=== PATIENT | female | born 1985 | race Caucasian/White ===

== ENCOUNTER → 2016-11-18 | Outpatient (CLI) | payer OTHER ==
[~2016-11-18] MED LIST: AMIT50TA3 PO; ASPI81CH2 PO; CALC500C70 PO; DOXY25TA7 PO; DULO60CA44 PO; KRIL1000 PO; LORA10CA2 PO; MTR600X PO; OMEG10007 PO; PRENTAB26 PO; PRLSR20 PO; PYRI1TAB40 PO; SENNTAB23 PO; VALA500T39 PO; ZNTT/150 PO
[2016-11-18 13:18] LABS: BASO % 0.1 %; BASO ABS # 0.01 K/uL (0-0.2); COMPLETE YES; EOS % 0.4 %; HEMATOCRIT 36.3 % (37-47); IG% 0.2 %; LYMPH ABS # 1.63 K/uL (1.2-3.4); MEAN CELL VOLUME 86.8 fL (80-100); MEAN CORPUSCULAR HEMOGLOBIN 31.1 pg (25-34); MEAN CORPUSCULAR HGB CONC 35.8 g/dl (32-36); MEAN PLATELET VOLUME 10.2 fL (7.4-10.4); NEUT % 72.3 %; PLATELET COUNT 242 K/uL (130-400); RED BLOOD COUNT 4.18 M/uL (4.2-5.4); WHITE BLOOD COUNT 8.15 K/uL (4.8-10.8)
[2016-11-18 14:15] LABS: URINE APPEARANCE CLEAR (CLEAR); URINE BILIRUBIN NEG (NEG); URINE COLOR YELLOW; URINE NITRITE NEG (NEG); UROBILINOGEN NEG (NEG)
[2016-11-18 14:34] LABS: MANUAL MICROSCOPIC REQUIRED? NO; REVIEW REQ? NO
[2016-11-21 14:03] LABS: CHLAMYDIA TRACH RNA*** NOT DETECTED (NOT DETECTED); GC (NEIS GONORRHOEAE)RNA** NOT DETECTED (NOT DETECTED)
== END | disposition home or self-care (01) ==
LOC: C.LAB1850 12:08
PROVIDERS: ATTEND Obstetrics & Gynecology
DX: O09.811 Supervision of pregnancy resulting from assisted reproductive technology, first trimester (principal)

== ENCOUNTER → 2016-12-03 | Outpatient (CLI) | payer OTHER ==
[2016-12-03 14:42] LABS: URINE APPEARANCE CLEAR (CLEAR); URINE BILIRUBIN NEG (NEG); URINE COLOR YELLOW; URINE EPITHELIAL CELL AUTO 20-30 /lpf (0-5); URINE NITRITE NEG (NEG); URINE PH 7.5 (4.5-7.5); URINE SPECIFIC GRAVITY 1.013 (1.000-1.030); UROBILINOGEN NEG (NEG)
[2016-12-03 14:48] LABS: MANUAL MICROSCOPIC REQUIRED? NO; REVIEW REQ? NO
== END | disposition home or self-care (01) ==
LOC: C.LABSPEC 14:15
PROVIDERS: ATTEND Obstetrics & Gynecology
DX: O09.819 Supervision of pregnancy resulting from assisted reproductive technology, unspecified trimester (principal)

== ENCOUNTER → 2017-01-04 | Outpatient (CLI) | payer OTHER ==
[2017-01-04 14:20] LABS: GTGD 50 Grams
[2017-01-06 09:02] LABS: AFP CONCENTRATION 131.5 NG/ML; AFP MULTIPLE OF MEDIAN 3.64; AFPTS GESTATIONAL AGE 16.7 WEEKS; AFPTS INSULIN DEP DIABETIC? NO; AFPTS MATERNAL WT 148 LBS; ALPHA-FETOPROTEIN RACE CAUCASIAN=W; EDD DETERMINED BY ULTRASOUND; HISTORY OF NTD NO; INHIBIN A 420 PG/ML; REPEAT SAMPLE? NO; hCG MULTIPLE OF MEDIAN 4.75
== END | disposition home or self-care (01) ==
LOC: C.LAB1850 11:54
PROVIDERS: ATTEND Obstetrics & Gynecology
DX: O09.811 Supervision of pregnancy resulting from assisted reproductive technology, first trimester (principal); O30.031 Twin pregnancy, monochorionic/diamniotic, first trimester

== ENCOUNTER 2017-01-18 17:07 | Emergency (ER) | payer OTHER ==
[~2017-01-18] VITALS: Ht 172.7 cm; Wt 68.5 kg
[~2017-01-18 17:07] MED LIST changes: -ASPI81CH2 PO; -CALC500C70 PO; -DOXY25TA7 PO; -PRENTAB26 PO; -PYRI1TAB40 PO; -ZNTT/150 PO
[2017-01-18 17:10] VITALS: TEMP 36.8; Ht 172.7 cm; Wt 68.5 kg
--- NOTE | 2017-01-18 19:06 | DIAGNOSTIC IMAGING REPORT ---
ULTRASOUND LIMITED CLINICAL HISTORY: Twin gestation. COMPARISON STUDY: No priors. FINDINGS: Real-time, grayscale, and color Doppler sonography of the two fetuses and gravid uterus is performed. There are two live intrauterine gestations. Baby A is located on the left and baby B is located on the right. Both fetuses are in cephalic presentation. The gestation appears to be monochorionic diamniotic. Both placentas appear posterior and fundal. Baby A has an estimated heart rate of 137 bpm. Baby A has a biparietal diameter of 4.27 cm, corresponding to an estimated age of 18 weeks 6 days. Head circumference measures 15.58 cm, corresponding to an estimated age of 18 weeks 4 days, abdominal circumference measures 13.9 cm corresponding to an estimated age of 18 weeks 5 days, and femoral length measures 2.6 cm corresponding to an estimated age of 18 weeks 5 days. Overall estimated age is 8 weeks 4 days. Estimated weight is 257 g. Baby B has an estimated heart rate of 145 bpm. Baby B has a biparietal diameter of 3.3 cm corresponding to an estimated age of 17 weeks 5 days. Head circumference measures 13.82 cm corresponding to an estimated age 17 weeks 2 days, the abdominal circumference measures 10.30 cm corresponding to an estimated age of 16 weeks 2 days, and the femoral length measures 2.16 cm corresponding to an estimated age of 16 weeks 3 days. Overall estimated age is 17 weeks 0 days. Estimated weight is 159 g. Hydrocephalus is identified involving baby B. The amniotic fluid volume is grossly normal bilaterally. The cervix appears closed and cervical length measures 5.8 cm. IMPRESSION: 1. There are live twin gestations as detailed above. Both gestations are in cephalic presentation. 2. The gestations are likely monochorionic diamnionic. 3. Survey imaging of baby B shows significant hydrocephalus. Follow-up with the patient's foot and ankle surgeon is recommended. Note that this does not constitute a dedicated anatomic scan. 4. The estimated weight of baby A is significantly greater than baby B. See above. Findings were discussed with Dr. Marti in the emergency department at the time of interpretation. Dictated: 01/18/2017 6:37 PM Transcribed: 01/18/2017 7:06 PM Giana Electronically signed by: Alfredo Peacock M.D. 01/18/2017 7:08 PM Dictated Date/Time: 01/18/2017 6:37 PM
[2017-01-18] MEDS ORDERED: PRENTAB26 PO (19:12)
[2017-01-18] MEDS ORDERED: PYRI1TAB40 PO (19:12)
[2017-01-18] MEDS ORDERED: DOXY25TA7 PO (19:12)
[2017-01-18 20:25] VITALS: BP 124/80; PULSE 90; O2SAT 100
--- NOTE | 2017-01-18 23:52 | EMERGENCY ROOM VISIT NOTE ---
History Report prepared by Lata: Jovana Perez Under the Supervision of: Dr. Elisha Marti D.O. 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 She started hyperventilating and presented to the ED. She is with twins. Two weeks ago, she learned that one twin was smaller than the other and had an appointment scheduled with OB tomorrow. This has been stressful for her, but she has been able to function. Today, she received a call and learned that her appointment was cancelled. She then started to feel anxious and started hyperventilating. She has a history of anxiety and was on medications, but stopped when she got . She has never experienced anxiety like this before. She feels dizzy. She denies any abdominal pain. 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 A total of 10 systems reviewed and were otherwise negative. Past Medical & Surgical Medical Problems: (1) Ovarian cyst Family History Patient reports no known family medical history. Social History Smoking Status: Never Smoker Alcohol Use: none Drug Use: none Marital Status: Housing Status: lives with family Occupation Status: employed Current/Historical Medications Scheduled Doxylamine Succinate (Sleep) (Unisom), 25 MG PO HS Fish Oil (Carroll-3), 1 CAP PO HS Krill Oil (Krill Oil), 1 CAP PO QAM Multivit/Min/Iron/Fol Ac/Pren ( Vitamin), 1 TAB PO QAM Pyridoxine HCl (Vitamin B6), 25 MG PO BID Valacyclovir Hcl (Valtrex), 500 MG PO HS Allergies Coded Allergies: No Known Allergies (Unverified , 01/18/17) Physical Exam Vital Signs Date Time Temp Pulse Resp B/P Pulse Ox O2 Delivery O2 Flow Rate FiO2 01/18/17 20:25 90 16 124/80 100 Room Air 01/18/17 18:45 83 16 125/72 100 Room Air 01/18/17 17:10 36.8 85 40 143/70 100 Room Air Physical Exam General: She is tearful and hyperventilating. HEENT: Head - normocephalic and atraumatic Pupils are equal, round, and reactive to light. Extraocular eye muscles are intact, and sclera are anicteric. Nose - moist nasal mucosa without discharge. Mouth - moist buccal mucosa. Oropharynx is nonerythematous and there is no tonsillar exudate or edema noted. Neck: Supple; no JVD, nuchal rigidity, cervical lymphadenopathy. Heart: Tachycardic rate and regular rhythm. There is a normal S1 and S2 with no murmurs, clicks, or gallops appreciated. Lungs: Clear to auscultation bilaterally with no wheezes, rales, or rhonchi. Abdomen: Gravid. Soft, completely nontender with good bowel sounds. There are no palpable pulsatile masses or hepatosplenomegaly. There is no guarding, rigidity, or rebound noted. Extremities: No evidence of cyanosis, clubbing, or edema. There are easily palpable peripheral pulses. Skin: warm and dry with good turgor and no rashes. Medical Decision & Procedures ER Provider Diagnostic Interpretation: Radiology results as stated below per my review and the radiologist's interpretation: ULTRASOUND LIMITED CLINICAL HISTORY: Twin gestation. COMPARISON STUDY: No priors. FINDINGS: Real-time, grayscale, and color Doppler sonography of the two fetuses and gravid uterus is performed. There are two live intrauterine gestations. Baby A is located on the left and baby B is located on the right. Both fetuses are in cephalic presentation. The gestation appears to be monochorionic diamniotic. Both placentas appear posterior and fundal. Baby A has an estimated heart rate of 137 bpm. Baby A has a biparietal diameter of 4.27 cm, corresponding to an estimated age of 18 weeks 6 days. Head circumference measures 15.58 cm, corresponding to an estimated age of 18 weeks 4 days, abdominal circumference measures 13.9 cm corresponding to an estimated age of 18 weeks 5 days, and femoral length measures 2.6 cm corresponding to an estimated age of 18 weeks 5 days. Overall estimated age is 18 weeks 4 days. Estimated weight is 257 g. Baby B has an estimated heart rate of 145 bpm. Baby B has a biparietal diameter of 3.3 cm corresponding to an estimated age of 17 weeks 5 days. Head circumference measures 13.82 cm corresponding to an estimated age 17 weeks 2 days, the abdominal circumference measures 10.30 cm corresponding to an estimated age of 16 weeks 2 days, and the femoral length measures 2.16 cm corresponding to an estimated age of 16 weeks 3 days. Overall estimated age is 17 weeks 0 days. Estimated weight is 159 g. Hydrocephalus is identified involving baby B. The amniotic fluid volume is grossly normal bilaterally. The cervix appears closed and cervical length measures 5.8 cm. IMPRESSION: 1. There are live twin gestations as detailed above. Both gestations are in cephalic presentation. 2. The gestations are likely monochorionic diamnionic. 3. Survey imaging of baby B shows significant hydrocephalus. Follow-up with the patient's accounting software specialist is recommended. Note that this does not constitute a dedicated anatomic scan. 4. The estimated weight of baby A is significantly greater than baby B. See above. Findings were discussed with Dr. Marti in the emergency department at the time of interpretation. Electronically signed by: Alfredo Peacock M.D. 01/18/2017 7:08 PM Dictated Date/Time: 01/18/2017 6:37 PM ULTRASOUND LIMITED CLINICAL HISTORY: Twin gestation. COMPARISON STUDY: No priors. FINDINGS: Real-time, grayscale, and color Doppler sonography of the two fetuses and gravid uterus is performed. There are two live intrauterine gestations. Baby A is located on the left and baby B is located on the right. Both fetuses are in cephalic presentation. The gestation appears to be monochorionic diamniotic. Both placentas appear posterior and fundal. Baby A has an estimated heart rate of 137 bpm. Baby A has a biparietal diameter of 4.27 cm, corresponding to an estimated age of 18 weeks 6 days. Head circumference measures 15.58 cm, corresponding to an estimated age of 18 weeks 4 days, abdominal circumference measures 13.9 cm corresponding to an estimated age of 18 weeks 5 days, and femoral length measures 2.6 cm corresponding to an estimated age of 18 weeks 5 days. Overall estimated age is 8 weeks 4 days. Estimated weight is 257 g. Baby B has an estimated heart rate of 145 bpm. Baby B has a biparietal diameter of 3.3 cm corresponding to an estimated age of 17 weeks 5 days. Head circumference measures 13.82 cm corresponding to an estimated age 17 weeks 2 days, the abdominal circumference measures 10.30 cm corresponding to an estimated age of 16 weeks 2 days, and the femoral length measures 2.16 cm corresponding to an estimated age of 16 weeks 3 days. Overall estimated age is 17 weeks 0 days. Estimated weight is 159 g. Hydrocephalus is identified involving baby B. The amniotic fluid volume is grossly normal bilaterally. The cervix appears closed and cervical length measures 5.8 cm. IMPRESSION: 1. There are live twin gestations as detailed above. Both gestations are in cephalic presentation. 2. The gestations are likely monochorionic diamnionic. 3. Survey imaging of baby B shows significant hydrocephalus. Follow-up with the patient's accounting software specialist is recommended. Note that this does not constitute a dedicated anatomic scan. 4. The estimated weight of baby A is significantly greater than baby B. See above. Findings were discussed with Dr. Marti in the emergency department at the time of interpretation. Electronically signed by: Alfredo Peacock M.D. 01/18/2017 7:08 PM Dictated Date/Time: 01/18/2017 6:37 PM ED Course 1719: The patient was evaluated in room B9. A complete history and physical examination were performed. Nursing notes and previous electronic medical records were reviewed. The patient was able to relax. The patient went for an ultrasound. 1849: I discussed the US results with Dr. Peacock. The B twin has evidence of hydrocephalus and is smaller than the A twin. 1921: I reevaluated the patient. I discussed the results with her. 1953: I discussed the patient's case with Dr. Olvera, [facility], maternal- medicine. The patient will follow up with him as an outpatient. 2007: I discussed the patient's case with Dr. Meneses, [facility] [place] [facility]. The patient will follow up with her as an outpatient. 2009: I reevaluated the patient. I discussed the treatment plan with her. She verbalized understanding and agreement. She will be discharged home. Medical Decision The patient is a 31 year old female who presents to the ED with anxiety. Differential diagnosis includes anxiety attack, hyperventilation. This is a 31-year-old female patient who is with twins and suffered a panic attack tonight. The patient is in her second trimester with this twin gestation. Unfortunately, the B twin is smaller in size compared to the other twin and has evidence of hydrocephalus. The patient will follow-up tomorrow after 12:00 with the [place] [facility] Consults Time Called: 1844 Consulting Physician: Dr. Peacock, [facility] radiology Returned Call: 1849 I discussed the patient's case and US results with him. The B twin has severe hydrocephalus. Additional Consults: Time Called: 1939 Consulted Physician: Dr. Olvera, [facility] [facility] Returned Call: 1953 Additional Comments: I discussed the patient's case with him. The patient will follow up with him as an outpatient. Time Called: 2001 Consulted Physician: Dr. Meneses, [facility] [place] [facility] Returned Call: 2007 Additional Comments: I discussed the patient's case with her. The patient will follow up with him as an outpatient. Impression Primary Impression: Anxiety attack Additional Impression: Twin gestation in second trimester Scribe Attestation The scribe's documentation has been prepared under my direction and personally reviewed by me in its entirety. I confirm that the note above accurately reflects all work, treatment, procedures, and medical decision making performed by me. Departure Information Dispostion Home / Self-Care Referrals No Doctor, Assigned (PCP) Silvio Sexton MD Forms HOME CARE DOCUMENTATION FORM, IMPORTANT VISIT INFORMATION Patient Instructions My [facility] Additional Instructions Contact Dr. Addison's office tomorrow after noon for an appointment by the end of the week Follow up with local OB next week Problem Qualifiers
== END 2017-01-18 20:27 | disposition home or self-care (01) ==
LOC: C.EDB 17:09
DX: O99.342 Other mental disorders complicating pregnancy, second trimester (principal); F41.9 Anxiety disorder, unspecified; O30.002 Twin pregnancy, unspecified number of placenta and unspecified number of amniotic sacs, second trimester; Z3A.17 17 weeks gestation of pregnancy

== ENCOUNTER 2017-02-18 15:37 | Outpatient (CLI) | payer OTHER ==
[~2017-02-18] VITALS: Ht 170.2 cm; Wt 67.1 kg
[~2017-02-18 15:37] MED LIST changes: -AMIT50TA3 PO; +DOXY25TA7 PO; -DULO60CA44 PO; -LORA10CA2 PO; -MTR600X PO; +PRENTAB26 PO; -PRLSR20 PO; +PYRI1TAB40 PO; -SENNTAB23 PO
[2017-02-18] MEDS ORDERED: BETAMETH SOD PHOS/ACETATE IA 6 MG/ML ONE (15:46)
[2017-02-18 15:58] VITALS: Ht 170.2 cm; Wt 67.1 kg
[2017-02-18] MEDS ORDERED: BETAMETH SOD PHOS/ACETATE IA 6 MG/ML IM SCH (16:00)
[2017-02-18] MEDS ORDERED: PRENTAB26 PO (16:11)
[2017-02-18] MEDS ORDERED: ZNTT/150 PO (16:11)
[2017-02-18] MEDS ORDERED: CALC500C70 PO (16:11)
[2017-02-18] MEDS ORDERED: ASPI81CH2 PO (16:11)
== END 2017-02-18 15:55 | disposition home or self-care (01) ==
LOC: C.LD 15:37 → C.OPB 15:37
PROVIDERS: ATTEND Obstetrics & Gynecology
DX: O30.032 Twin pregnancy, monochorionic/diamniotic, second trimester (principal); Z3A.23 23 weeks gestation of pregnancy

== ENCOUNTER 2017-12-11 15:28 | Emergency (ER) | payer OTHER ==
[~2017-12-11] VITALS: Ht 172.7 cm; Wt 59.0 kg
[~2017-12-11 15:28] MED LIST changes: +ASPI81CH2 PO; +CALC500C70 PO; -DOXY25TA7 PO; -KRIL1000 PO; -OMEG10007 PO; -PYRI1TAB40 PO; -VALA500T39 PO; +ZNTT/150 PO
[2017-12-11 16:02] VITALS: TEMP 37.4; Ht 172.7 cm; Wt 59.0 kg
[2017-12-11] MEDS ORDERED: ACETAMINOPHEN 500 MG TAB PO STA (16:22)
[2017-12-11] MEDS ORDERED: ONDANSETRON 4MG OD TAB PO STA (16:22)
[2017-12-11 16:43] LABS: INFLUENZA B ANTIGEN Neg for Influ B (NEG)
[2017-12-11] MEDS ORDERED: VALA500T60 PO (16:43)
[2017-12-11] MEDS ORDERED: LAMO25TA PO (16:43)
[2017-12-11] MEDS ORDERED: SERT-234 PO (16:43)
[2017-12-11] MEDS ORDERED: MULT-506 PO (16:43)
--- NOTE | 2017-12-11 16:46 | DIAGNOSTIC IMAGING REPORT ---
CHEST ONE VIEW PORTABLE CLINICAL HISTORY: 31 years-old Female presenting with cough, fever. TECHNIQUE: Portable upright AP view of the chest was obtained. COMPARISON: None. FINDINGS: Cardiomediastinal silhouette normal. Multiple hyperdense foci in the lung bases may represent prominent vascular shadows. Lungs and pleural spaces clear. Osseous structures normal. Upper abdomen normal. IMPRESSION: 1. No acute cardiopulmonary disease. Electronically signed by: Bacilio Chapa M.D. 12/11/2017 4:45 PM Dictated Date/Time: 12/11/2017 4:44 PM
[2017-12-11] MEDS ORDERED: ALBUTEROL HFA 8 GM INHALER INH ONE (17:00)
[2017-12-11] MEDS ORDERED: ONDANSETRON HOME PACK 4MG OD TAB PO ONE (17:00)
[2017-12-11 17:22] VITALS: BP 109/67; PULSE 80; O2SAT 96
--- NOTE | 2017-12-11 19:40 | EMERGENCY ROOM VISIT NOTE ---
History Report prepared by Lata: Paige Calderon Under the Supervision of: Dr. Chandan Ocampo M.D. First contact with patient: 16:08 Chief Complaint: FLU LIKE SX Stated Complaint: FLU LIKE SYMPTOMS,CHILLS,BODY ACHES,COUGH,NAUSEA History of Present Illness The patient is a 31 year old female who presents to the Emergency Room with complaints of constant generalized illness beginning yesterday. The patient reports body aches, lightheadedness, fatigue, fever, scratchy throat, headache, chills, a barky cough, chest tightness, and nausea. The patient took ibuprofen with no relief. 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 She states she has a 12 hour shift tomorrow. The patient had a flu shot this year. She denies any joint pain or swelling. Pt denies LOC, diaphoresis, visual changes, neck pain, breathing difficulties, vomiting, abdominal pain, back pain , melena, hematochezia, urinary symptoms, numbness, weakness, lymphadenopathy, rash, or other complaints. Source of History: patient Onset: yesterday Position: other (generalized) Quality: other (illness) Timing: constant Associated Symptoms: + fevers, + chills, + headache, + sorethroat, + cough, + nausea Review of Systems See HPI for pertinent positives and negatives. A total of ten systems were reviewed and were otherwise negative. Past Medical & Surgical Medical Problems: (1) Monochorionic diamniotic twin gestation in second trimester (2) Monochorionic diamniotic twin in third trimester (3) Ovarian cyst Family History Patient reports no known family medical history. Social History Smoking Status: Never Smoker Alcohol Use: none Drug Use: none Marital Status: Housing Status: lives with family Occupation Status: employed Current/Historical Medications Scheduled Lamotrigine (Lamictal), 50 MG PO HS Multivitamin (Multivitamin), 1 TAB PO HS Ranitidine (Zantac), 1 TAB PO BID Sertraline (Zoloft), 100 MG PO HS Valacyclovir (Valtrex), 500 MG PO HS Allergies Coded Allergies: Promethazine (Verified Allergy, Severe, TONIC REACTION, 12/11/17) IF GIVEN IV. Physical Exam Vital Signs Date Time Temp Pulse Resp B/P (MAP) Pulse Ox O2 Delivery O2 Flow Rate FiO2 12/11/17 17:22 80 18 109/67 96 12/11/17 16:02 37.4 127 20 122/79 96 Room Air Physical Exam GENERAL: Awake, alert, well-appearing, in no distress HENT: Normocephalic, atraumatic. Oropharynx unremarkable. EYES: Normal conjunctiva. Sclera non-icteric. NECK: Supple. No nuchal rigidity. FROM. No JVD. RESPIRATORY: Clear to auscultation. CARDIAC: Regular rate, normal rhythm. Extremities warm and well perfused. Pulses equal. ABDOMEN: Soft, non-distended. No tenderness to palpation. No rebound or guarding. No masses. RECTAL: Deferred. MUSCULOSKELETAL: Chest examination reveals no tenderness. The back is symmetrical on inspection without obvious abnormality. There is no CVA tenderness to palpation. No joint edema. LOWER EXTREMITIES: Calves are equal size bilaterally and non-tender. No edema. No discoloration. NEURO: Normal sensorium. No sensory or motor deficits noted. SKIN: No rash or jaundice noted. Medical Decision & Procedures ER Provider Diagnostic Interpretation: Radiology results as stated below per my review and radiologist interpretation: CHEST ONE VIEW PORTABLE FINDINGS: Cardiomediastinal silhouette normal. Multiple hyperdense foci in the lung bases may represent prominent vascular shadows. Lungs and pleural spaces clear. Osseous structures normal. Upper abdomen normal. IMPRESSION: 1. No acute cardiopulmonary disease. Electronically signed by: Bacilio Chapa M.D. Laboratory Results Test 12/11/17 16:15 Influenza Type A Antigen Neg for Influ A (NEG) Influenza Type B Antigen Neg for Influ B (NEG) Laboratory results reviewed by me Medications Administered Medications (Trade) Dose Ordered Sig/Thea Route Start Time Stop Time Status Last Admin Dose Admin Acetaminophen (Tylenol Tab) 1,000 mg NOW STAT PO 12/11/17 16:22 12/11/17 16:24 DC 12/11/17 16:44 1,000 MG Ondansetron HCl (Zofran Odt) 4 mg NOW STAT PO 12/11/17 16:22 12/11/17 16:24 DC 12/11/17 16:43 4 MG Ondansetron HCl (ZOFRAN ODT 4MG Home Pack) 1 homepack UD ONCE PO 12/11/17 17:00 12/11/17 17:01 DC 12/11/17 17:16 1 HOMEPACK Albuterol (Ventolin Hfa Inhaler) 2 puffs NOW ONCE INH 12/11/17 17:00 12/11/17 17:01 DC 12/11/17 17:16 2 PUFFS ECG Indication: chest pain Rate (beats per minute): 83 Rhythm: normal sinus Findings: no acute ischemic change, no ectopy, other (no pericarditis) Change: EKG interpreted by me. ED Course 161: The patient was evaluated in room A3. A complete history and physical exam was performed. 162: Ordered Zofran Odt 4 mg PO, Acetaminophen 1000 mg PO. 1654: I updated the patient on her test results. 1700: Ordered Albuterol 2 puffs INH, Ondansetron HCl 1 homepack PO. 1706: I reevaluated the patient. Discussed results and discharge instructions: She verbalized understanding and agreement. The patient is ready for discharge. Medical Decision Triage Nursing notes reviewed and agree them. The patient's history was concerning for flulike symptoms. Differential diagnosis: Etiologies such as viral syndrome, otitis, pharyngitis, pneumonia, influenza, meningitis, urinary tract infection, sepsis, bacteremia, as well as others were entertained. Physical examination: As above. Clinically the patient looked well. ER treatment provided: Oral Zofran Oral Tylenol On reassessment the patient felt better. Diagnostics interpreted by me: ECG: Normal without ischemia or ectopy. No pericarditis. The labs revealed a negative flu test. Imaging studies: As above. The patient has flu symptoms but they are mild. She had some mild nausea and this resulted Zofran. I discussed conservative management with her. 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 The patient feels comfortable holding off given the circumstances. The patient has a history of exercised induced asthma. She does not have a fresh inhaler. She was given an albuterol MDI and will use this for the next 5 days and then as needed. If she worsens in any way she will be back. Close outpatient follow- up was recommended.I gave my usual and customary discussion regarding this issue. By the evaluation outlined above other emergent etiologies such as those listed in the differential, as well as others, were deemed relatively unlikely. The patient was educated about the findings as listed above. All questions were answered and the patient was pleased with the treatment. Return instructions were outlined and the patient was discharged in stable condition. The patient was referred to her PCP for follow-up for a recheck of the current condition. Medication Reconcilliation Current Medication List: was personally reviewed by me Blood Pressure Screening Patient's blood pressure: Normal blood pressure Impression Primary Impression: Flu-like symptoms Scribe Attestation The scribe's documentation has been prepared under my direction and personally reviewed by me in its entirety. I confirm that the note above accurately reflects all work, treatment, procedures, and medical decision making performed by me. Departure Information Dispostion Home / Self-Care Referrals Silvio Sexton MD (PCP) Forms HOME CARE DOCUMENTATION FORM, IMPORTANT VISIT INFORMATION Patient Instructions My [facility] Additional Instructions Acetaminophen(Tylenol) may be used for fever or pain. Use 1000mg every six hours as needed. Avoid using more than 4000mg in a 24 hour period. (AND/OR) Ibuprofen(Motrin, Advil) may be used for fever or pain. Use 600mg every six hours as needed. Take with food. Avoid using more than 2400mg in a 24 hour period. Do not use 2400mg per day for more than three consecutive days without physician direction. Prolonged inappropriate use can lead to stomach upset or ulcers. Albuterol Inhaler: Take 2 puffs four times daily for seven days, then as needed. Zofran 4 mg oral dissolving tablets: take one tablet and allow it to melt in your mouth every 4 hours as needed for nausea. Rest and drink plenty of fluids. Controlling your fever with Tylenol and Ibuprofen as above will make you feel better. Wash your hands after nose blowing, sneezing, or coughing. Most germs are spread through contact, therefore improper hygiene may result in your close contacts and loved ones becoming ill just like you. Return to the ER for severe headache, neck stiffness, chest pain, difficulty breathing, fevers, vomiting, worsening of your condition, or as needed. Follow up with your primary physician this week for a recheck of your current condition.
== END 2017-12-11 17:23 | disposition home or self-care (01) ==
LOC: C.EDB 15:30 → C.EDA 17:23
DX: R50.9 Fever, unspecified (principal); R11.0 Nausea; R05 Cough; R51 Headache; R53.83 Other fatigue; R07.89 Other chest pain; Z79.899 Other long term (current) drug therapy

== ENCOUNTER → 2017-12-21 | Outpatient (CLI) | payer OTHER ==
[~2017-12-21] MED LIST changes: -ASPI81CH2 PO; -CALC500C70 PO; +LAMO25TA PO; +MULT-506 PO; -PRENTAB26 PO; +RANI150T85 PO; +SERT-234 PO; +VALA500T60 PO; -ZNTT/150 PO
== END | disposition home or self-care (01) ==
LOC: C.PAPS 14:02
PROVIDERS: ATTEND Obstetrics & Gynecology
DX: Z12.4 Encounter for screening for malignant neoplasm of cervix (principal)

== ENCOUNTER 2018-02-20 08:42 | Emergency (ER) | payer OTHER ==
[~2018-02-20] VITALS: Ht 172.7 cm; Wt 59.8 kg
[2018-02-20 08:52] VITALS: BP 115/81; PULSE 77; TEMP 36.7; O2SAT 99; Ht 172.7 cm; Wt 59.8 kg
--- NOTE | 2018-02-20 09:11 | EMERGENCY ROOM VISIT NOTE ---
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 The patient washed out the wound very well at the time of the exposure. The source patient was identified as Elma Farmer in room 284 Bed2. Attending physician is Dr. Rivas. The patient's tetanus is up-to-date. REVIEW OF SYSTEMS: The patient's medical history form was completed and reviewed with positive pertinent findings as noted in history of present illness. PMH: Asthma, GERD, fibromyalgia, ovarian torsion SOCIAL HISTORY: Patient lives with her family. The patient denies tobacco use or alcohol use. PHYSICAL EXAM: Vital Signs are reviewed: Reviewed Nurse's notes and agree. GENERAL: 32 year-old white female appears in no acute distress. MENTAL status: Alert oriented x3. RIGHT THUMB: There is a small puncture wound on the palmar aspect of the distal phalanx. No active bleeding noted. EMERGENCY DEPARTMENT COURSE: The wound was cleaned with iodine and bacitracin and a bandage applied. Significant body fluid exposure laboratory requisition for [facility] was completed, consent for HIV related test was completed, informed consent for HIV antibody test was reviewed and signed. Labs were obtained. She was discharged in stable condition. DIAGNOSIS: Significant body fluid exposure secondary to needle stick DISCHARGE INSTRUCTIONS: The lab will notify you with test results Problem List Medical Problems: (1) Ovarian cyst Status: Chronic Current/Historical Medications Scheduled Lamotrigine (Lamictal), 50 MG PO HS Multivitamin (Multivitamin), 1 TAB PO HS Ranitidine (Zantac), 1 TAB PO BID Sertraline (Zoloft), 100 MG PO HS Valacyclovir (Valtrex), 500 MG PO HS Allergies Coded Allergies: Promethazine (Verified Allergy, Severe, TONIC REACTION, 12/11/17) IF GIVEN IV. Vital Signs Date Time Temp Pulse Resp B/P (MAP) Pulse Ox O2 Delivery O2 Flow Rate FiO2 02/20/18 08:52 36.7 77 18 115/81 99 Room Air Departure Information Referrals Silvio Sexton MD (PCP) Patient Instructions My [facility]
== END 2018-02-20 09:20 | disposition home or self-care (01) ==
LOC: C.EDB 08:44 → C.EDA 09:20
DX: S61.031A Puncture wound without foreign body of right thumb without damage to nail, initial encounter (principal); W46.1XXA Contact with contaminated hypodermic needle, initial encounter; Y92.238 Other place in hospital as the place of occurrence of the external cause; M79.7 Fibromyalgia; Z79.899 Other long term (current) drug therapy

== ENCOUNTER 2019-10-12 07:06 | Inpatient (IN) ==
--- NOTE | 2019-10-11 19:26 | History and Physical Report ---
DATE OF ADMISSION: 10/12/2019 PREOPERATIVE DIAGNOSES: 1. Intrauterine at 36 and 5/7 weeks. 2. History of previous classical section at 25+ weeks in a mono-di twin for intrauterine growth restriction and nonreassuring heart testing. 3. In vitro fertilization . HISTORY OF PRESENT ILLNESS: The patient is a 33-year-old white female, 2, para 0-1-0-1, who presents today for repeat section because of a history of a classical section in a previous . The patient had a twin IVF in her first . At her 20-week growth scan was found to have IUGR of both babies. She was transferred to [facility] where she was admitted at 25 weeks and 3 days. She underwent a classical delivery for nonreassuring heart testing. She had 2 girls, but one of the babies did pass away, so she has only one living child. This is her second . This is an IVF as well. echo was normal. She has had an essentially uncomplicated except for significant contractions throughout the . She has had normal growth scans. She had a reactive nonstress test in the labor and delivery today, and over the past 2 days, she has received betamethasone for a complete course. She presents for a repeat section prior to the onset of labor because of history of previous classical section. The baby on ultrasound today is in the 23rd percentile with a normal DVP but it is breech. Her has been complicated also by nausea throughout with intermittent use of Zofran. ALLERGIES: PROMETHAZINE. CURRENT MEDICATIONS: Include acyclovir, albuterol, buspirone, Colace, famotidine, folic acid, lamotrigine, Zofran, vitamin, risperidone and sertraline. OBSTETRIC LABORATORIES: Blood type O positive, antibody negative. Immune to rubella. Syphilis nonreactive, hepatitis B negative, HIV negative, chlamydia and gonorrhea negative, cystic fibrosis screening negative. Panorama low risk female. Declined AFP. SMA negative. Glucose tolerance test normal. Group B strep negative. PAST MEDICAL HISTORY: The patient has a history of fibromyalgia, history of anxiety and depression that the patient is followed by Dr. 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 PAST SURGICAL HISTORY: 1. History of classical section. 2. History of laparoscopy for ovarian torsion in 2013. 3. History of EGD. 4. [place] teeth removal. SOCIAL HISTORY: The patient is . Denies tobacco, alcohol or drug use. One of her twin babies at 5 months. PHYSICAL EXAMINATION: GENERAL: This is a well-developed, well-nourished white female in no acute distress. VITAL SIGNS: Blood pressure 110/84, weight 171 pounds. CHEST: Clear to auscultation bilaterally. CARDIOVASCULAR: Regular rate and rhythm without murmurs, gallops or rubs. ABDOMEN: Soft, nontender and gravid. EXTREMITIES: Benign. ASSESSMENT AND PLAN: Sveta is a 33-year-old white female 2, para 0-1-0-1 with a history of a previous mono-di twin delivered at 25+ weeks requiring classical section. The operative report is available for review and confirms classical section. This is her second IVF . One of her twins at 5 months. She also has a history of depression and anxiety, on several medications, followed by Dr. Fernandes. She presents on 10/12 for repeat section at 36 and 6/7 weeks prior to the onset of labor because of history of previous classical section. She has received 2 doses of betamethasone and has completed that course. The risks of the procedure were discussed with the patient including the risks of anesthesia, bleeding requiring transfusion, infection, poor wound healing, damage to surrounding structures including bowel, bladder, vessels, nerves and ureters with need for further surgery, hospitalization or intervention. We discussed the risks of any surgery including heart attack, blood clot, stroke or . The patient understands there is a small risk of prematurity, but also understands why we are proceeding with a section before the onset of labor. Consent was reviewed and signed. Questions were asked and answered. Surgery is planned for 10/12.
[2019-10-12] MEDS ORDERED: MoRPHine SULFATE PF 1 MG/ML 10 ML AMP/VIAL ONE (08:25)
[2019-10-12] MEDS ORDERED: fentaNYL citrate 100 MCG/2 ML VIAL ONE (08:25)
[2019-10-12] MEDS ORDERED: CEFAZOLIN 2000MG 2,000 MG/15 ML SYR IV SCH (08:30)
[2019-10-12] MEDS ORDERED: LACTATED RINGER'S 1,000 ML IV SCH ×2 (08:30→09:27)
--- NOTE | 2019-10-12 08:48 | Anesthesiology Consultation ---
Date of Service October 12, 2019 Assessment & Plan (1) Encounter for pre-operative examination: Chart Review Chart Review: Acceptable Risk for Surgery and Patient NOT seen in Pre Admission Testing Consults Requested none History Surgery Operation Date: 10/12/19 09:05 Proposed Procedures p Section in LD - Janel Carbajal MD, FACOG Height/Weight Height: 5 ft 8 in Weight: 77.111 kg Allergies Allergy/AdvReac Type Severity Reaction Status Date / Time promethazine Allergy Severe TONIC Verified 10/11/19 14:22 REACTION Medications Home Medications Medication Instructions Recorded Confirmed Last Taken PNV cmb#95-ferrous fumarate-FA 1 tab PO DAILY 03/11/19 10/12/19 10/11/19 [] acyclovir 400 mg PO BID 03/11/19 10/12/19 10/12/19 lamotrigine 150 mg PO HS 03/11/19 10/12/19 10/11/19 ondansetron 4 mg disintegrating 4 mg PO Q6H PRN #20 tab 08/15/19 10/12/19 10/11/19 tablet albuterol sulfate 1 puff INHALATION Q6H PRN 09/25/19 10/11/19 Unknown buspirone 15 mg PO BID 09/25/19 10/12/19 10/12/19 06:00 docusate sodium [Colace] 100 mg PO BID 09/25/19 10/12/19 10/11/19 famotidine 10 mg PO DAILY 10/12/19 10/12/19 10/11/19 risperidone [Risperdal] 0.5 mg PO DAILY 10/12/19 10/12/19 10/11/19 sertraline [Zoloft] 150 mg PO DAILY 10/12/19 10/12/19 10/11/19 Active Medications Generic Name Dose Route Start Last Admin Trade Name Freq PRN Reason Stop Dose Admin Lactated Ringer's 1,000 mls @ 999 mls/hr 10/12/19 08:30 10/12/19 08:43 Lr IV 10/12/19 09:30 999 mls/hr .Q1H1M ELVA Administration Past Medical History Medical History Anxiety and depression Anxiety attack (Inactive) Exercise-induced asthma Fibromyalgia Flank pain (Inactive) GERD (gastroesophageal reflux disease) Heart palpitations 2018 (HOLTOR MONITOR TEST DONE 2018/DR. DOBBINS) Hx of ovarian cyst Migraine Ovarian cyst (Inactive) Pelvic pain (Inactive) resulting from in vitro fertilization, antepartum (Acute) Restless leg syndrome DURING Torsion of ovary and ovarian pedicle with torsion of fallopian tube (Resolved 04/04/14) 2013 (LAP PROCEDURE) Twin gestation in second trimester (Inactive) Exercise / Class Metabolic Activity II 4-5 Yardwork/Stairs/Walk up hill Past Family History Family History Grandfather (Maternal) Colorectal cancer Diabetes Mother Multiple sclerosis Past Surgical History Surgical History H/O laparoscopy History of anesthesia reaction MIGRAINES AFTER History of esophagogastroduodenoscopy (EGD) History of surgery EGG RETRIEVAL S/P section X 1 Colp teeth removed Past Anesthesia History No Hx of Anesthesia Complications and No Family Hx of Anesthesia Complications History of PONV No Hx of PONV and No Hx of Motion Sickness Social History Smoking Status: Never smoker Do You Dip or Chew Tobacco: No Hx Alcohol Use: No Hx Substance Use: No substance use type: does not use Physical Exam Vital Signs Last Vital Signs Temp 37.1 C 10/12/19 07:33 Pulse 88 10/12/19 07:40 Resp 16 10/12/19 07:33 BP 107/69 10/12/19 07:40 Testing Laboratory Results Blood Type O Positive 10/12/19 07:25 Antibody Screen NEGATIVE 10/12/19 07:25
[2019-10-12 08:55] LABS: Basophils # (auto) 0.01 K/uL (0-0.2); Basophils % (auto) 0.1 %; Hematocrit (blood only) 27.8 % (37-47); Hemoglobin 8.9 g/dL (12.0-16.0); Immature Granulocytes # (auto) 0.11 K/uL (0.00-0.02); Immature Granulocytes % (auto) 0.9 %; Lymphocytes # (auto) 1.56 K/uL (1.2-3.4); Lymphocytes % (auto) 13.3 %; Mean Corpuscular Hemoglobin 24.5 pg (25-34); Mean Corpuscular Volume 76.6 fL (80-100); Monocytes # (auto) 1.07 K/uL (0.11-0.59); Monocytes % (auto) 9.1 %; Neutrophils # (auto) 8.98 K/uL (1.4-6.5); Neutrophils % (auto) 76.6 %; Platelet Count 173 K/uL (130-400); RDW Coefficient of Variation 14.2 % (11.5-14.5); RDW Standard Deviation 40.2 fL (36.4-46.3); Red Blood Count 3.63 M/uL (4.2-5.4); White Blood Count 11.73 K/uL (4.8-10.8)
[2019-10-12] MEDS ORDERED: CITRIC ACID/SODIUM CITRATE 15 ML UDC ONE (08:57)
--- NOTE | 2019-10-12 09:25 | Communication Note ---
Date of Service: October 12, 2019 hgb this am is 8.9, was 11.0 at her 28 week labs. Made patient aware. Higher risk for transfusion. Had transfusion with her last c/s so she expresses understanding.
[2019-10-12] MEDS ORDERED: SODIUM CHLORIDE 0.9% 250 ML IV PRN (09:37)
[2019-10-12] MEDS ORDERED: MoRPHine SULFATE PF 1 MG/ML 10 ML AMP/VIAL INT SPINAL ONE (09:44)
[2019-10-12] MEDS ORDERED: ONDANSETRON INJ 2 MG/ML 2 ML VIAL IV PRN (09:44)
[2019-10-12] MEDS ORDERED: MoRPHine SULFATE 2 MG/ML CARP IV PRN (09:44)
[2019-10-12] MEDS ORDERED: NALBUPHINE HCL INJ 10 MG/ML AMP IV PRN (09:44)
[2019-10-12] MEDS ORDERED: NALOXONE HCL 0.08 MG in SYRINGE 1.8 ML IV PRN (09:44)
[2019-10-12] MEDS ORDERED: LACTATED RINGER'S 500 ML IV PRN (09:44)
[2019-10-12] MEDS ORDERED: HYDROmorphone INJ 0.5 MG/0.5 ML SYR IV PRN (09:44)
[2019-10-12] MEDS ORDERED: ePHEDrine sulfate 50 MG/ML AMP IV PRN (09:44)
[2019-10-12] MEDS ORDERED: NALOXONE HCL 1 MG in SODIUM CHLORIDE 0.9% 1000ML 1,000 ML IV PRN (09:44)
[2019-10-12] MEDS ORDERED: DiphenhydrAMINE HCL 50 MG/ML VIAL IV PRN (09:44)
[2019-10-12] MEDS ORDERED: NALOXONE HCL 0.4 MG/1 ML VIAL/CARP IV PRN (09:44)
[2019-10-12] MEDS ORDERED: SODIUM CHLORIDE 0.9% 1000ML 1,000 ML IV SCH (09:45)
[2019-10-12] MEDS ORDERED: NO NARCOTICS OR SEDATIVES SCH (09:45)
[2019-10-12] MEDS ORDERED: DC INTRASPINAL MORPHINE SCH (09:45)
[2019-10-12] MEDS ORDERED: ONDANSETRON INJ 2 MG/ML 2 ML VIAL ONE (09:47)
[2019-10-12] MEDS ORDERED: OXYTOCIN 10 UNITS/ML VIAL ONE (09:47)
[2019-10-12] MEDS ORDERED: PHENYLEPHRINE 100MCG/ML 5ML SYR ONE (09:47)
--- NOTE | 2019-10-12 10:39 | Anesthesiology Progress Note ---
Date of Service October 12, 2019 Anesthesia Post Procedure Vital Signs Vital Signs: Temp Pulse Resp BP Pulse Ox 10/12/19 10:37 76 114/66 10/12/19 10:36 80 95 10/12/19 09:17 85 100 10/12/19 09:12 93 H 100 10/12/19 09:07 91 H 100 10/12/19 09:02 95 H 100 10/12/19 08:57 93 H 100 10/12/19 08:56 91 H 92 10/12/19 08:52 88 100 10/12/19 08:47 87 99 10/12/19 07:40 88 107/69 10/12/19 07:33 37.1 C 16 Transfer of Care Handoff Completed per policy Notes Mental Status: alert / awake / arousable and participated in evaluation Patient Amnestic to Procedure: No Nausea / Vomiting: adequately controlled Pain: adequately controlled Airway Patency, RR, SpO2: stable & adequate BP & HR: stable & adequate Hydration State: stable & adequate Neuraxial Anesthesia: was administered and sensory block is resolving Anesthetic Complications: no major complications apparent and Pt Satisfied with anesthetic care
[2019-10-12] MEDS: KETOROLAC 30 MG/ML VIAL IV PRN ×3 (10:43→22:37)
--- NOTE | 2019-10-12 11:12 | Operative Report ---
DATE OF OPERATION: 10/12/2019 PREOPERATIVE DIAGNOSES: 1. Intrauterine at 36 and 6/7th weeks. 2. In vitro fertilization . 3. History of previous classical section requiring delivery prior to the onset of labor. POSTOPERATIVE DIAGNOSES: 1. Intrauterine at 36 and 6/7th weeks. 2. In vitro fertilization . 3. History of previous classical section requiring delivery prior to the onset of labor. PROCEDURE: Repeat lower transverse section. SURGEON: Janel Carbajal MD. SAND SLINGER: Tony Gzumán, PGY1, and Kimberly Crockett MS2. ANESTHESIA: Spinal. ESTIMATED BLOOD LOSS: 500 mL. FLUIDS: 1400 mL. URINE OUTPUT: 400 mL of clear yellow urine drained from the bladder at the end of the procedure. INDICATIONS: The patient is a 2, para 0-1-0-1, who presents to Labor and Delivery for repeat section as her first was a mono-di twin delivered at 25+ weeks by classical delivery. This has been uncomplicated. FINDINGS: Viable female in double footling breech presentation. Normal uterus, very atrophic appearing left tube and nonvisualization of the left ovary. Right tube appeared normal with a streak ovary very deep in the pelvis. COMPLICATIONS: None. DRAINS: Burns. DISPOSITION: To Recovery Room in stable condition. DESCRIPTION OF PROCEDURE: The patient was taken to the Operating Room where she was identified verbally and by bracelet. She was transferred to the operating table where she was seated and a spinal anesthetic was placed. She was placed in dorsal supine position with a leftward tilt. A Burns catheter was placed sterilely and she was prepped and draped in normal sterile fashion. Timeout was held identifying correct patient, procedure, positioning and preoperative antibiotics. There were no concerns. A Pfannenstiel skin incision was made with the knife and taken down to the underlying layer of fascia with the knife. Bleeding was attended to with Bovie electrocautery. The fascia was incised with the knife and taken out laterally with scissors. The superior edge of the fascial incision was grasped, elevated and the underlying layer of rectus muscle was taken off bluntly and with scissors. In a similar fashion, the inferior edge of the fascial incision was grasped, elevated and the underlying layer of rectus muscle was taken off bluntly and with scissors. The peritoneum had been entered sharply during this procedure. Sales Estimator's finger was placed into this and there were no appreciable adhesions of the uterus or omentum. The muscles were then in the midline sharply. The peritoneum was then taken superiorly and inferiorly with good visualization of bladder. The incision was stretched, the bladder blade was placed. The vesicouterine peritoneum was identified, grasped with snap, entered with scissors and taken laterally with scissors. The bladder flap was created digitally. Hysterotomy incision was scored with a knife. The incision was then stretched with the construction plant operator's fingers. Clear fluid was noted on amniotomy. The construction plant operator's hands were then placed into the uterus and feet were identified. Both feet were grasped and gently lifted up through the hysterotomy incision. Then using fundal pressure and gentle traction, the fetus was delivered up to the shoulders. The arms were swept bilaterally and delivered and then using a Jrngzpjcw-Zlowuwo-Jtmh maneuver to flex the head, the head was then delivered atraumatically with fundal pressure. The nose and mouth were bulb suctioned. The cord was clamped and cut and the was handed off to the waiting pediatricians for drying and attention. The placenta was manually extracted. The uterus was exteriorized and cleared of all clot and debris with moistened laparotomy sponges. The hysterotomy incision was repaired in 2 layers, the first in a running locked layer, the second in an imbricating layer. The posterior cul-de-sac was then irrigated and cleared of all clot and debris. The hysterotomy incision was again inspected and found to be hemostatic. The adnexa were inspected with the above noted findings. The uterus was reanteriorized. The hysterotomy incision was again inspected. Some oozing at the midline was attended to with 1 mesosk-yc-yzpeh suture of 0 Vicryl until hemostasis was assured. The rectus muscles were reapproximated with several interrupted stitches of 0 Vicryl. The fascia was reapproximated using 0 Vicryl starting at the corners and meeting in the midline. The subcuticular tissue was copiously irrigated and bleeding was attended to with Bovie electrocautery until hemostasis was assured and the skin was closed with 4-0 Vicryl subcuticular stitch. All sponge, lap and needle counts were correct x2. The patient tolerated the procedure well and was taken to Recovery Room in stable condition. I attest to the content of the Intraoperative Record and any orders documented therein. Any exception s are noted below.
[2019-10-12] MEDS ORDERED: SUPERCREAM 0.870% 15 GM JAR EXT PRN (11:56)
[2019-10-12] MEDS ORDERED: BENZOCAINE 20% AER SPR 82.5 GM CAN EXT PRN (11:56)
[2019-10-12] MEDS ORDERED: DIPHTHERIA/TETANUS/PERTUSSIS 0.5 ML SYR/VIAL IM ONE (11:56)
[2019-10-12] MEDS ORDERED: HYDROCORTISONE ACETATE 25 MG SUPP PR PRN (11:56)
[2019-10-12] MEDS ORDERED: SENNA 8.6 MG TAB PO PRN (11:56)
[2019-10-12] MEDS ORDERED: MAGNESIUM HYDROXIDE SUSP 30 ML UDC PO PRN (11:56)
[2019-10-12] MEDS: OXYTOCIN 20 UNITS in LACTATED RINGER'S 1,000 ML IV SCH ×2 (12:22→21:01)
[2019-10-12] MEDS ORDERED: SERTRALINE HCL 50 MG TABLET PO SCH (13:00)
[2019-10-12] MEDS ORDERED: risperiDONE 0.5 MG TABLET PO SCH (13:00)
[2019-10-12] MEDS: SIMETHICONE 80 MG CHEW PO SCH ×3 (13:59→21:05)
[2019-10-12] MEDS: DOCUSATE SODIUM 100 MG CAP PO SCH (21:05)
[2019-10-12] MEDS: SERTRALINE HCL 50 MG TABLET PO SCH (21:06)
[2019-10-12] MEDS: lamoTRIgine 100 MG TAB PO SCH (21:07)
[2019-10-12] MEDS: risperiDONE 0.5 MG TABLET PO SCH (21:07)
[2019-10-12] MEDS: ACYCLOVIR 400 MG TAB PO SCH (21:11)
[2019-10-12] MEDS: BusPIRone 15 MG TAB PO SCH (21:14)
[2019-10-13] MEDS ORDERED: MEPERIDINE HCL 50 MG/ML CARP IV PRN (03:44)
[2019-10-13] MEDS ORDERED: DiphenhydrAMINE HCL 50 MG/ML VIAL IV PRN (03:44)
[2019-10-13] MEDS ORDERED: PROMETHAZINE HCL 25 MG in SODIUM CHLORIDE 0.9% 50 ML IV PRN (03:44)
[2019-10-13] MEDS ORDERED: ONDANSETRON INJ 2 MG/ML 2 ML VIAL IV PRN (03:44)
[2019-10-13] MEDS ORDERED: KETOROLAC 30 MG/ML VIAL IV PRN (03:44)
[2019-10-13] MEDS: OXYCODONE/ACETAMINOPHEN 5mg/325mg TAB PO PRN ×5 (05:19→19:29)
[2019-10-13] MEDS ORDERED: CITRIC ACID/SODIUM CITRATE 15 ML UDC PO SCH (06:00)
--- NOTE | 2019-10-13 06:23 | Obstetrical Progress Note ---
Date of Service <Tony Guzmná MD - Last Filed: 10/13/19 06:25> October 13, 2019 Assessment & Plan <Tony Guzmán MD - Last Filed: 10/13/19 06:25> (1) : RLTCS POD#1 doing well, ambulating well, tolerating foods continue routine care until discharge after discharge will have follow-up in 6 weeks Subjective <Tony Guzmán MD - Last Filed: 10/13/19 06:25> Ms. Mukherjee is a 33 y/o female ; POD #1 following delivery at 36 5/7 weeks; doing well this morning; having minimal abdominal cramping/pain; voiding well; tolerating meals overnight; and able to ambulate some Review of Systems Constitutional: denies fever; chills; sweats; headache Respiratory: denies shortness of breath, difficulty breathing Cardiac: denies chest pain; palpitations; chest pressure Breast: denies breast pain : denies dysuria Physical Exam <Tony Guzmán MD - Last Filed: 10/13/19 06:25> General: alert; oriented; no acute distress Cardiac: RRR; no m/g/r Respiratory: CTAB a/p; no wheezes/rales/rhonchi; no increased work of breathing; symmetrical chest rise; no respiratory distress Abdomen: soft; NT/ND; bowel sounds positive, incision warm/dry and intact without exudate or erythema Uterus: uterine fundus firm; palpable 2cm below umbilicus Lower extrem: no lower extremity edema or swelling; no deep calf pain; Yunior's sign negative b/l Results & Data <Tony Guzmán MD - Last Filed: 10/13/19 06:25> Vital Signs (Past 12 Hours) Vital Signs Temp Pulse Resp BP Pulse Ox 10/13/19 04:00 36.8 C 71 16 115/75 96 10/13/19 02:20 14 94 10/13/19 01:05 16 93 10/13/19 00:10 14 97 10/12/19 23:10 36.9 C 62 16 108/68 96 10/12/19 22:41 14 96 10/12/19 21:26 16 96 10/12/19 20:40 37 C 67 16 113/71 97 10/12/19 19:55 16 97 10/12/19 19:10 16 99 10/12/19 18:30 18 98 Laboratory Results 10/12/19 10/12/19 Range/Units 08:44 07:25 WBC 11.73 H (4.8-10.8) K/uL RBC 3.63 L (4.2-5.4) M/uL Hgb 8.9 L (12.0-16.0) g/dL Hct 27.8 L (37-47) % MCV 76.6 L (80-100) fL MCH 24.5 L (25-34) pg MCHC 32.0 (32-36) g/dL RDW Std Deviation 40.2 (36.4-46.3) fL RDW Coeff of Poonam 14.2 (11.5-14.5) % Plt Count 173 (130-400) K/uL MPV 10.0 (7.4-10.4) fL Immature Gran % (Auto) 0.9 % Neut % (Auto) 76.6 % Lymph % (Auto) 13.3 % Fergus % (Auto) 9.1 % Eos % (Auto) 0.0 % Baso % (Auto) 0.1 % Immature Gran # (Auto) 0.11 H (0.00-0.02) K/uL Neut # (Auto) 8.98 H (1.4-6.5) K/uL Lymph # (Auto) 1.56 (1.2-3.4) K/uL Fergus # (Auto) 1.07 H (0.11-0.59) K/uL Eos # (Auto) 0.00 (0-0.5) K/uL Baso # (Auto) 0.01 (0-0.2) K/uL Blood Type O Positive Antibody Screen NEGATIVE Crossmatch See Detail Medications Administered Current Inpatient Medications Acyclovir (Zovirax) 400 mg PO BID PENDING SALE TO [facility] Stop: 10/22/19 20:59 Last Admin: 10/12/19 21:11 Dose: 400 mg Documented by: Benzocaine (Dermoplast Pain Relieving [place]) 1 appln EXT UD PRN PRN Reason: use on skin as needed Stop: 11/11/19 11:55 Bisacodyl (Dulcolax) 5 mg PO 2000 PENDING SALE TO [facility] Stop: 10/13/19 20:01 Bisacodyl (Dulcolax) 10 mg NH PRN PRN PRN Reason: Constipation Stop: 11/13/19 10:24 Buspirone HCl (Buspar) 15 mg PO BID PENDING SALE TO [facility] Stop: 11/11/19 20:59 Last Admin: 10/12/19 21:14 Dose: 15 mg Documented by: Cocaine HCl (Supercream 0.870%) 1 gm EXT UD PRN PRN Reason: hemmorrhoidal inflammation Stop: 10/26/19 11:55 Diphenhydramine HCl (Benadryl Capsule) 25 mg PO QID PRN PRN Reason: Itching Stop: 11/12/19 03:43 Diphenhydramine HCl (Benadryl) 25 mg IV QID PRN PRN Reason: Itching Stop: 11/12/19 03:43 Docusate Sodium (Colace) 100 mg PO DAILY@08,21 PENDING SALE TO [facility] Stop: 11/11/19 20:59 Last Admin: 10/12/19 21:05 Dose: 100 mg Documented by: Ferrous Sulfate (Feosol) 325 mg PO DAILY@08 PENDING SALE TO [facility] Stop: 11/12/19 07:59 Hydrocortisone (Anusol Hc) 25 mg NH BID PRN PRN Reason: Hemorrhoids Stop: 11/11/19 11:55 Ibuprofen (Motrin) 600 mg PO Q4H PRN PRN Reason: Pain Stop: 11/11/19 11:55 Ketorolac Tromethamine (Toradol) 30 mg IV Q6H PRN PRN Reason: Pain Stop: 10/18/19 03:43 Lamotrigine (Lamictal) 150 mg PO HS ELVA Stop: 11/11/19 20:59 Last Admin: 10/12/19 21:07 Dose: 200 mg Documented by: Magnesium Hydroxide (Milk Of Magnesia) 30 ml PO HS PRN PRN Reason: Constipation Stop: 11/11/19 11:55 Meperidine HCl (Demerol) 50 - 75 mg IV Q4H PRN PRN Reason: Pain Stop: 10/27/19 03:43 Ondansetron HCl (Zofran) 4 mg IV Q4H PRN PRN Reason: Nausea And Vomiting Stop: 11/12/19 03:43 Oxycodone/Acetaminophen (Percocet 5mg/325mg) 1 - 2 tab PO Q4H PRN PRN Reason: Pain Stop: 10/27/19 03:43 Last Admin: 10/13/19 05:19 Dose: 1 tab Documented by: Prenat Multivit/[place]/Iron/Folic Ac ( Vitamin) 1 tab PO DAILY@08 PENDING SALE TO [facility] Stop: 11/12/19 07:59 Risperidone (Risperdal) 0.5 mg PO HS ELVA Stop: 11/11/19 20:59 Last Admin: 10/12/19 21:07 Dose: 0.5 mg Documented by: Sennosides (Senokot) 17.2 mg PO HS PRN PRN Reason: Constipation Stop: 11/11/19 11:55 Sertraline HCl (Zoloft) 150 mg PO HS PENDING SALE TO [facility] Stop: 11/11/19 20:59 Last Admin: 10/12/19 21:06 Dose: 150 mg Documented by: Simethicone (Mylicon) 80 mg PO DAILY@08,13,17,21 PENDING SALE TO [facility] Stop: 11/11/19 12:59 Last Admin: 10/12/19 21:05 Dose: 80 mg Documented by: <Priscilla Meneses MD - Last Filed: 10/13/19 08:05> Co-Signing Physician Notes I have reviewed the resident's note and examined the patient myself, and agree with the note above. Resident Activity Tracking <Tony Guzmán MD - Last Filed: 10/13/19 06:25> Resident Involvement: Resident Care Provided Care Provided: OB Delivery
[2019-10-13 06:44] LABS: Hematocrit (blood only) 28.2 % (37-47); Hemoglobin 8.8 g/dL (12.0-16.0); Immature Granulocytes # (auto) 0.09 K/uL (0.00-0.02); Immature Granulocytes % (auto) 0.7 %; Lymphocytes # (auto) 1.93 K/uL (1.2-3.4); Mean Corpuscular Hemoglobin 24.1 pg (25-34); Mean Corpuscular Hgb Conc 31.2 g/dL (32-36); Mean Corpuscular Volume 77.3 fL (80-100); Mean Platelet Volume 10.1 fL (7.4-10.4); Monocytes # (auto) 1.02 K/uL (0.11-0.59); Monocytes % (auto) 7.9 %; Neutrophils # (auto) 9.84 K/uL (1.4-6.5); Neutrophils % (auto) 76.4 %; Nucleated RBC # (auto) 0.02 K/uL (0-0); Nucleated RBC % (auto) 0.2 %; Platelet Count 189 K/uL (130-400); RDW Coefficient of Variation 14.2 % (11.5-14.5); Red Blood Count 3.65 M/uL (4.2-5.4); White Blood Count 12.88 K/uL (4.8-10.8)
--- NOTE | 2019-10-13 08:35 | Anesthesiology Progress Note ---
Date of Service October 13, 2019 Anesthesia Post Procedure Vital Signs Vital Signs: Temp Pulse Pulse Resp BP BP Pulse Ox 10/13/19 04:00 36.8 C 71 16 115/75 96 10/13/19 02:20 14 94 10/13/19 01:05 16 93 10/13/19 00:10 14 97 10/12/19 23:10 36.9 C 62 16 108/68 96 10/12/19 22:41 14 96 10/12/19 21:26 16 96 10/12/19 20:40 37 C 67 16 113/71 97 10/12/19 19:55 16 97 10/12/19 19:10 16 99 10/12/19 18:30 18 98 10/12/19 17:50 18 98 10/12/19 16:34 18 99 10/12/19 15:20 36.5 C 79 18 97/62 L 98 10/12/19 14:35 18 99 10/12/19 14:30 36.7 C 92 H 16 111/68 99 10/12/19 13:05 36.5 C 82 18 121/65 99 10/12/19 12:57 69 99/55 L 10/12/19 12:56 67 100 10/12/19 12:51 71 100 10/12/19 12:47 78 120/57 L 10/12/19 12:46 75 99 10/12/19 12:41 73 99 10/12/19 12:37 73 102/58 L 10/12/19 12:36 66 98 10/12/19 12:35 36.5 C 84 16 98 10/12/19 12:31 84 98 10/12/19 12:27 76 109/58 L 10/12/19 12:26 68 98 10/12/19 12:21 75 98 10/12/19 12:17 81 109/66 10/12/19 12:16 85 98 10/12/19 12:11 77 98 10/12/19 12:07 110/63 10/12/19 12:06 85 99 10/12/19 12:05 36.5 C 16 110/63 10/12/19 12:04 86 88 L 10/12/19 12:01 81 100 10/12/19 11:57 86 113/64 10/12/19 11:56 88 99 10/12/19 11:51 83 99 10/12/19 11:47 83 106/59 L 10/12/19 11:46 74 99 10/12/19 11:41 86 100 10/12/19 11:37 72 112/65 10/12/19 11:36 75 99 10/12/19 11:35 36.5 C 86 16 112/65 100 10/12/19 11:31 72 100 10/12/19 11:29 85 92 10/12/19 11:27 83 103/62 10/12/19 11:26 81 99 10/12/19 11:25 76 16 100 10/12/19 11:21 76 100 10/12/19 11:17 86 107/62 10/12/19 11:16 83 100 10/12/19 11:15 82 16 100 10/12/19 11:11 82 100 10/12/19 11:08 78 93 10/12/19 11:07 78 111/66 10/12/19 11:06 89 100 10/12/19 11:05 78 16 93 10/12/19 11:01 87 100 10/12/19 10:57 83 100/55 L 10/12/19 10:56 88 100 10/12/19 10:55 78 16 111/66 10/12/19 10:51 89 99 10/12/19 10:48 71 93 10/12/19 10:47 55 L 117/65 10/12/19 10:46 64 100 10/12/19 10:45 87 16 100 10/12/19 10:41 73 100 10/12/19 10:37 76 114/66 10/12/19 10:36 80 95 10/12/19 10:35 36.5 C 18 10/12/19 09:17 85 100 10/12/19 09:12 93 H 100 10/12/19 09:07 91 H 100 10/12/19 09:02 95 H 100 10/12/19 08:57 93 H 100 10/12/19 08:56 91 H 92 10/12/19 08:52 88 100 10/12/19 08:47 87 99 Pain Intensity Abdomen: Pain Intensity: 3 Transfer of Care Handoff Completed per policy Notes Mental Status: alert / awake / arousable Patient Amnestic to Procedure: Yes Nausea / Vomiting: adequately controlled Pain: adequately controlled Airway Patency, RR, SpO2: stable & adequate BP & HR: stable & adequate Hydration State: stable & adequate Neuraxial Anesthesia: was administered and sensory block resolved Anesthetic Complications: no major complications apparent and Pt Satisfied with anesthetic care
[2019-10-13] MEDS: DOCUSATE SODIUM 100 MG CAP PO SCH ×2 (09:30→20:11)
[2019-10-13] MEDS: IBUPROFEN 600 MG TAB PO PRN ×3 (09:30→18:23)
[2019-10-13] MEDS: FERROUS SULFATE 325 MG TAB PO SCH (09:30)
[2019-10-13] MEDS: SIMETHICONE 80 MG CHEW PO SCH ×4 (09:30→20:11)
[2019-10-13] MEDS: PRENATAL VITAMIN 1 TAB PO SCH (09:30)
[2019-10-13] MEDS: BusPIRone 15 MG TAB PO SCH ×2 (09:32→20:14)
[2019-10-13] MEDS: ACYCLOVIR 400 MG TAB PO SCH ×2 (09:32→20:14)
[2019-10-13] MEDS ORDERED: bisacodyL 5 MG TABEC PO SCH (20:00)
[2019-10-13] MEDS: risperiDONE 0.5 MG TABLET PO SCH (20:11)
[2019-10-13] MEDS: SERTRALINE HCL 50 MG TABLET PO SCH (20:11)
[2019-10-13] MEDS: lamoTRIgine 100 MG TAB PO SCH (20:12)
[2019-10-14] MEDS: OXYCODONE/ACETAMINOPHEN 5mg/325mg TAB PO PRN ×3 (03:16→12:57)
[2019-10-14] MEDS: IBUPROFEN 600 MG TAB PO PRN ×3 (03:17→12:57)
[2019-10-14 06:24] LABS: Hematocrit (blood only) 27.7 % (37-47); Hemoglobin 8.8 g/dL (12.0-16.0)
[2019-10-14] MEDS: DOCUSATE SODIUM 100 MG CAP PO SCH (08:37)
[2019-10-14] MEDS: SIMETHICONE 80 MG CHEW PO SCH ×2 (08:37→13:20)
[2019-10-14] MEDS: FERROUS SULFATE 325 MG TAB PO SCH (08:37)
[2019-10-14] MEDS: BusPIRone 15 MG TAB PO SCH (08:38)
[2019-10-14] MEDS: ACYCLOVIR 400 MG TAB PO SCH (08:38)
[2019-10-14] MEDS: PRENATAL VITAMIN 1 TAB PO SCH (08:38)
--- NOTE | 2019-10-14 08:46 | Obstetrical Progress Note ---
Date of Service October 14, 2019 Assessment & Plan (1) Previous delivery affecting , antepartum: Patient doing well. Plan d/c. Instuctions given. Plan f/u in 6 weeks. Continue all previous meds. Day #:: 2 Subjective Ambulation: ambulating normally Voiding: no voiding problems Passing Gas:: Yes Diet Tolerance:: regular diet (no n/v) Lochia:: Small Feeding Type:: breast feeding Patient feels well. Notes a small amount of leakage from her incision ov ernight. Patient desires d/c. Physical Exam Constitutional WD/WN, vitals as above Gastrointestinal (Abdomen) soft, nt, nd FF/nt at u Results & Data Vital Signs (Past 12 Hours) Vital Signs Temp Pulse Resp BP Pulse Ox 10/13/19 23:00 36.7 C 78 14 113/73 95
[2019-10-14] MEDS ORDERED: bisacodyL 10 MG SUPP PR PRN (10:25)
--- NOTE | 2019-10-17 10:49 | Discharge Summary ---
DATE OF ADMISSION: 10/12/2019 DATE OF DISCHARGE: 10/14/2019 ADMISSION DIAGNOSES: 1. Intrauterine at 36 and 5/7 weeks. 2. History of previous classical section at 25+ weeks and a mono-di twin for intrauterine growth restriction and nonreassuring heart testing. 3. In vitro fertilization . DISCHARGE DIAGNOSES: 1. Intrauterine at 36 and 5/7 weeks. 2. History of previous classical section at 25+ weeks and a mono-di twin for intrauterine growth restriction and nonreassuring heart testing. 3. In vitro fertilization . PROCEDURES: Repeat lower transverse section. HISTORY OF PRESENT ILLNESS: The patient is a 33-year-old white female 2, para 0-1-0-1, who presents today for repeat section because of history of classical section in previous . The patient had a twin IVF in her first . At her 20-week growth scan, she was found to have IUGR both babies. She was transferred to [place] where she was admitted and at 25 weeks and 3 days, underwent a classical delivery for nonreassuring heart testing. She had 2 girls, but one of the baby did pass away at approximately 5 months, so she has only one living child. This is her second which is an IVF as well. echo was normal. She has had essentially uncomplicated except for significant contractions throughout the . She has had normal growth scans. She had a reactive nonstress test in labor and delivery the day before admission and for the past 2 days, she has received betamethasone for complete course. She presents for repeat section prior to the onset of labor because of history of previous classical section. Recent ultrasound shows the baby in 23rd percentile with normal DVT, but breech presentation. Her has also been complicated by nausea throughout with intermittent use of Zofran. For the rest of patient's detailed history and physical, please see her dictated history and physical. ASSESSMENT: This is a at 36 and 6/7 weeks who presents for repeat section because of previous classical. HOSPITAL COURSE: The patient underwent a repeat lower transverse section to deliver a viable female in double footling breech presentation. Normal uterus, noted very atrophic appearing left tube and nonvisualization of the left ovary. Right tube appeared normal with a streak ovary very deep in the pelvis. There were no complications. Estimated blood loss was 500 mL. POSTOPERATIVE COURSE: The patient's postoperative course was uncomplicated. She tolerated a regular diet, ambulated without difficulty, voided after the removal of her Burns catheter and had her pain well tolerated with oral pain medications. She was discharged home on postoperative day #2. Her postoperative H and H was 8.8 and 27.7. She started with a hemoglobin prior to surgery of 8.9. She was discharged on all her postoperative psychiatric medications and was instructed to call if she had issues.
== END 2019-10-14 13:20 | disposition home or self-care (01) | DRG 787 ==
LOC: 4S1 07:06 → EDSTATUS 08:50 → 4S2 13:25

== ENCOUNTER 2020-03-24 19:19 | Inpatient (IN) ==
[2020-03-24] MEDS ORDERED: METOCLOPRAMIDE HCL INJ 5 MG/ML 2 ML VIAL IV STA (20:24)
[2020-03-24] MEDS ORDERED: SODIUM CHLORIDE 0.9% 1000ML 1,000 ML IV ONE ×2 (20:24→21:25)
[2020-03-24] MEDS ORDERED: FAMOTIDINE 20MG IV PUSH 20 MG/5 ML SYR IV STA (20:24)
[2020-03-24] MEDS ORDERED: DiphenhydrAMINE HCL 50 MG/ML VIAL IV STA (20:24)
[2020-03-24 20:34] LABS: Basophils # (auto) 0.01 K/uL (0-0.2); Basophils % (auto) 0.1 %; Eosinophils # (auto) 0.01 K/uL (0-0.5); Eosinophils % (auto) 0.1 %; Hematocrit (blood only) 38.7 % (37-47); Hemoglobin 12.4 g/dL (12.0-16.0); Immature Granulocytes # (auto) 0.01 K/uL (0.00-0.02); Immature Granulocytes % (auto) 0.1 %; Lymphocytes # (auto) 2.13 K/uL (1.2-3.4); Mean Corpuscular Hemoglobin 24.9 pg (25-34); Mean Corpuscular Volume 77.7 fL (80-100); Monocytes # (auto) 0.67 K/uL (0.11-0.59); Monocytes % (auto) 8.2 %; Neutrophils # (auto) 5.37 K/uL (1.4-6.5); Neutrophils % (auto) 65.5 %; Platelet Count 322 K/uL (130-400); RDW Standard Deviation 45.4 fL (36.4-46.3); Red Blood Count 4.98 M/uL (4.2-5.4)
[2020-03-24 20:39] LABS: Pregnancy Test, Serum Negative (Negative)
[2020-03-24 20:42] LABS: Alanine Aminotransferase 27 U/L (12-78); Aspartate Aminotransferase 33 U/L (15-37); BUN Creatinine Ratio 11.7 (10-20); Bilirubin Direct 0.1 mg/dl (0-0.2); Blood Urea Nitrogen 10 mg/dl (7-18); Calcium 9.8 mg/dl (8.5-10.1); Carbon Dioxide 27 mmol/L (21-32); Chloride 102 mmol/L (98-107); Creatinine Clr Calc Pharmacy 96.3 ml/min; Est GFR (African American) 106.6; Glucose 107 mg/dl (70-99); Magnesium 2.2 mg/dl (1.8-2.4); Potassium 3.4 mmol/L (3.5-5.1); Sodium 139 mmol/L (136-145)
[2020-03-24 20:44] LABS: Partial Thromboplastin Ratio 0.9; Partial Thromboplastin Time 25.1 Seconds (21.0-31.0); Prothrombin Time 10.4 Seconds (9.0-12.0)
[2020-03-24 20:45] LABS: Alkaline Phosphatase 80 U/L (45-117); Bilirubin,Total 0.4 mg/dl (0.2-1); Globulin 3.9 gm/dl (2.5-4.0); Lipase 14748 U/L (73-393); Phosphorus 3.1 mg/dl (2.5-4.9); Total Protein 7.9 gm/dl (6.4-8.2); Troponin I < 0.015 ng/ml (0-0.045)
--- NOTE | 2020-03-24 21:13 | XRay Report ---
SINGLE VIEW CHEST CLINICAL HISTORY: Atypical chest pain. FINDINGS: An AP, portable, upright chest radiograph is compared to study dated 12/11/2017. The cardiome diastinal silhouette is unremarkable. The lungs and pleural spaces are clear. No pneumothorax is seen . The bony thorax is grossly intact. IMPRESSION: No active disease in the chest. ACT 112: Negative or not required by law. Electronically signed by: Alfredo Peacock M.D. 03/24/2020 9:12 PM
[2020-03-24] MEDS ORDERED: MoRPHine SULFATE 10 MG/ML CARP/VIAL IV STA ×2 (21:24→23:58)
[2020-03-24] MEDS ORDERED: IOVERSOL 100ml IV PRN (21:46)
[2020-03-24] MEDS ORDERED: PROCHLORPERAZINE 2 ML IV ONE (21:51)
[2020-03-24] MEDS ORDERED: PROCHLORPERAZINE 5 MG/ML 2 ML VIAL ONE (21:54)
[2020-03-24] MEDS ORDERED: MoRPHine SULFATE 4 MG/ML 1 ML CARP\\VIAL ONE (21:54)
[2020-03-24] MEDS ORDERED: MoRPHine SULFATE 2 MG/ML CARP ONE (21:54)
--- NOTE | 2020-03-24 21:58 | CT Scan Report ---
CT SCAN OF THE ABDOMEN AND PELVIS WITH IV CONTRAST CLINICAL HISTORY: Generalized abdominal pain. COMPARISON STUDY: Abdominal CT dated 02/11/2020. TECHNIQUE: Following the IV administration of 93 cc of Optiray 320, CT scan of the abdomen and pelvi s is performed from the lung bases to the proximal femora. Images are reviewed in the axial, sagittal , and coronal planes. IV contrast was administered without complication. A dose lowering technique wa s utilized adhering to the principles of ALARA. CT DOSE: 296.83 mGy.cm FINDINGS: Lung bases: The heart is normal in size and without pericardial effusion. There are trace pleural eff usions. The lung bases are otherwise clear. Liver: The contrast-enhanced liver is normal in size, contour, and attenuation. There is no intrahepa tic biliary ductal dilatation. The hepatic veins and portal veins are patent. Periportal edema is not ed. Gallbladder: The gallbladder is distended. The gallbladder wall is thickened and edematous. Perichole cystic inflammation and fluid is noted. Findings are highly concerning for acute cholecystitis. Spleen: Normal in size and attenuation. Pancreas: There is faint peripancreatic stranding and trace fluid. The pancreas enhances homogeneousl y. The duct is normal in caliber. The splenic vein is patent. No peripancreatic fluid collection is i dentified. Adrenal glands: Unremarkable. Kidneys: The contrast enhanced kidneys are normal in size and without hydronephrosis. The kidneys enh ance symmetrically. Abdominal vasculature: The abdominal aorta is normal in course and caliber. Bowel: There is moderate colonic fecal retention. No bowel obstruction is seen. Small duodenal divert icula are noted. The appendix is well-visualized and normal. Peritoneum: There is no intraperitoneal free air or abdominal ascites. There is a small fat-containin g umbilical hernia. Lymphadenopathy: None. Pelvic viscera: The bladder, uterus, and adnexa are normal as imaged. Trace free fluid is seen in the cul-de-sac. Skeletal structures: There is mild lumbosacral scoliosis. No lytic or blastic lesions are seen. IMPRESSION: 1. Findings are highly concerning for acute cholecystitis. Consider right upper quadrant ultrasound f or confirmation. 2. Question concurrent mild acute pancreatitis. No peripancreatic fluid collection is identified and the pancreas enhances homogeneously. 3. Trace pleural effusions. 4. Trace nonspecific free fluid in the cul-de-sac is likely within physiologic limits. ACT 112: Negative or not required by law. Electronically signed by: Alfredo Peacock M.D. 03/24/2020 9:57 PM
[2020-03-24] MEDS ORDERED: cefTRIAXone SODIUM 2,000 MG/70 ML BAG IV STA (22:33)
[2020-03-24] MEDS ORDERED: metroNIDAZOLE 500 MG/100 ML BAG IV STA (22:33)
--- NOTE | 2020-03-24 23:46 | Emergency Department Note ---
Impression & Plan Acute pancreatitis, Cholecystitis, Upper abdominal pain, Nausea & vomiting ED Provider Note NAME: JOSTIN GARCIA AGE: 34 SEX: F ARRIVES VIA: Walk-In INFORMANT: Patient, ED PROVIDER(S): Aaron Casanova MD CHIEF COMPLAINT: Abdominal pain PLAN: Disposition: Admit MEDICAL DECISION MAKING: The patient is a pleasant 34-year-old woman with a past medical history of anxiety, depression, fibromyalgia who presents emergency department with acute onset upper abdominal pain that began this afternoon around 3 PM with associated nausea and vomiting. Patient reports eating lunch earlier today which included venison steak and vegetables. She reports that no one else developed similar symptoms. She denies any regular alcohol use. She denies any marijuana use. She does report a history of acid reflux but feels that this is different. The patient denies any fevers, cough, congestion, diarrhea, urinary symptoms. The patient denies any travel or exposure to individuals diagnosed with COVID-19. On arrival patient is uncomfortable but no acute distress, afebrile stable vital signs. On exam the patient has mild upper abdominal tenderness without guarding or rebound. Chest x-ray negative for acute process. EKG without overt acute ischemia. WBC, H/H and platelets within normal limits. Chemistry without acidosis. LFTs are unremarkable including total bilirubin within normal limits. Troponin negative/undetectable. Lipase is acutely elevated at 14K. CT of the abdomen pelvis was performed and shows evidence of pancreatitis which is consistent with the patient's lipase elevation but also with edematous thickened gallbladder wall with pericholecystic inflammation and fluid noted suspicious for acute cholecystitis. The patient was ordered for empiric antibiotics, CTX and Flagyl. Formal gallbladder ultrasound per preliminary stat read report shows further suspicion of cholecystitis positive sonographic Purdy sign. Note is made of dilated CBD up to 7 mm. There is no visualization of choledocholithiasis on the ultrasound. Plan was reviewed with the patient as she is agreeable with plan for admission. Case was discussed with Dr. Gregg, [facility], who will evaluate the patient for admission. General surgery and GI consultation per admitting team. Triage Nursing notes reviewed and agree them. Prior medical records reviewed Vital Signs: reviewed and remarkable for no significant abnormalities Differential diagnosis: Appendicitis, ovarian cyst, ovarian torsion, ectopic , TOA, PID, infections, diverticulitis, UTI, obstruction, mesenteric ischemia, aortic pathology, inflammatory bowel disease, renal colic, PUD, pancreatitis, biliary pathology, hernia, volvulus, constipation, as well as other pathologies. ER treatment provided: See below. Diagnostics interpreted by me: ECG: Normal sinus rhythm, 68 bpm, no ectopy, no overt ST elevation or depression, QTC 450, QRS 80. Cardiac Monitoring: Normal sinus rhythm, 68 bpm, no ectopy. Laboratory studies: See below Imaging studies: See below Consultation(s): Case was discussed with Dr. Gregg, [facility] hospitalist, who will evaluate the patient for admission. HPI: The patient is a pleasant 34-year-old woman with a past medical history of anxiety, depression, fibromyalgia who presents emergency department with acute onset upper abdominal pain that began this afternoon around 3 PM with associated nausea and vomiting. Patient reports eating lunch earlier today which included venison steak and vegetables. She reports that no one else developed similar symptoms. She denies any regular alcohol use. She denies any marijuana use. She does report a history of acid reflux but feels that this is different. The patient denies any fevers, cough, congestion, diarrhea, urinary symptoms. The patient denies any travel or exposure to individuals diagnosed with COVID-19. ROS: See above HPI for pertinent positives & negatives. A total of 10 systems reviewed and were otherwise negative. PAST MEDICAL HISTORY:See Below PAST SURGICAL HISTORY:See Below FAMILY HISTORY:See Below SOCIAL HISTORY:See Below HOME MEDICATIONS:See Below ALLERGIES:See Below VITALS:See Below PHYSICAL EXAMINATION: GENERAL: Awake, alert, uncomfortable-appearing, in no distress HENT: Normocephalic, atraumatic. Oropharynx with dry mucous membranes and otherwise unremarkable. EYES: Normal conjunctiva. Sclera non-icteric. NECK: Supple. No nuchal rigidity. FROM. No JVD. RESPIRATORY: Clear to auscultation. CARDIAC: Tachycardic rate, normal rhythm. Extremities warm and well perfused. Pulses equal. ABDOMEN: Soft, non-distended. Mild upper abdominal tenderness. No rebound or guarding. No masses. RECTAL: Deferred. MUSCULOSKELETAL: Chest examination reveals no tenderness. The back is symmetrical on inspection without obvious abnormality. There is no CVA tenderness to palpation. No joint edema. LOWER EXTREMITIES: Calves are equal size bilaterally and non-tender. No edema. No discoloration. NEURO: Normal sensorium. No sensory or motor deficits noted. SKIN: No rash or jaundice noted. Aaron Casanova MD Past Med/Surg History Medical History Anxiety and depression Anxiety attack (Inactive) Exercise-induced asthma Fibromyalgia Flank pain (Inactive) GERD (gastroesophageal reflux disease) Heart palpitations 2017 (HOLTOR MONITOR TEST DONE 2018/DR. DOBBINS) Hx of ovarian cyst Migraine Ovarian cyst (Inactive) Pelvic pain (Inactive) resulting from in vitro fertilization, antepartum (Acute) Restless leg syndrome DURING Torsion of ovary and ovarian pedicle with torsion of fallopian tube (Resolved 04/04/14) 2013 (LAP PROCEDURE) Twin gestation in second trimester (Inactive) Surgical History H/O laparoscopy History of anesthesia reaction MIGRAINES AFTER History of esophagogastroduodenoscopy (EGD) History of surgery EGG RETRIEVAL S/P section X 1 Brick teeth removed Family History Grandfather (Maternal) Colorectal cancer Diabetes Mother Multiple sclerosis Social History Preferred Language: Montenegrin Communication Ability: Effective Visual Impairment: No Limitations Hearing Ability: Normal Flag Signalman Required: No Beliefs That Will Affect Care: None marital status: Current Living Situation: Family current occupational status: employed Feels Safe at Home: Yes Smoking Status: Never smoker Second Hand Exposure: Yes ( A CHILD) ; Hx Alcohol Use: No Hx Substance Use: No Allergies Allergies Allergy/AdvReac Type Severity Reaction Status Date / Time promethazine Allergy Severe TONIC Verified 03/24/20 22:22 REACTION Home Meds Home Medications Medication Instructions Recorded Confirmed acyclovir 400 mg PO BID 03/11/19 03/24/20 lamotrigine 150 mg PO HS 03/11/19 03/24/20 risperidone [Risperdal] 0.75 mg PO HS 10/12/19 03/24/20 sertraline [Zoloft] 150 mg PO DAILY 10/12/19 03/24/20 omeprazole magnesium [Prilosec OTC] 20 mg PO DAILY 02/11/20 03/24/20 brexpiprazole [Rexulti] 0.5 mg PO DAILY 03/24/20 03/25/20 Results & Data (ED) Vital Signs Vital Signs - 24 hr 03/24/20 19:22 03/24/20 20:01 03/24/20 20:43 Temperature 36.6 C Temperature Source Oral Pulse Rate 73 64 75 Pulse Rate from SpO2 Sensor 63 Pulse Rhythm Regular Pulse Strength Normal Respiratory Rate 20 19 Respiratory Effort / Characteristics Non-Labored Respiratory Depth Normal Respiratory Pattern Regular Blood Pressure 125/83 123/78 Blood Pressure Mean 97 87 Blood Pressure Position Sitting Pulse Oximetry 98 100 99 Oxygen Delivery Method Room Air Room Air Room Air Sepsis Recent Fever Within 48 Hours No Sepsis New/Unexplained Change in Mental Status No Sepsis Action Taken by Nursing No Action Required 03/24/20 21:30 03/24/20 23:33 03/25/20 00:00 Temperature Temperature Source Pulse Rate 80 90 84 Pulse Rate from SpO2 Sensor 79 90 Pulse Rhythm Pulse Strength Respiratory Rate 13 18 15 Respiratory Effort / Characteristics Respiratory Depth Respiratory Pattern Blood Pressure 125/80 119/81 106/75 Blood Pressure Mean 95 93 85 Blood Pressure Position Pulse Oximetry 99 97 98 Oxygen Delivery Method Room Air Nasal Cannula Sepsis Recent Fever Within 48 Hours Sepsis New/Unexplained Change in Mental Status Sepsis Action Taken by Nursing 03/25/20 00:30 Temperature Temperature Source Pulse Rate 90 Pulse Rate from SpO2 Sensor Pulse Rhythm Pulse Strength Respiratory Rate 21 Respiratory Effort / Characteristics Respiratory Depth Respiratory Pattern Blood Pressure 121/82 Blood Pressure Mean 92 Blood Pressure Position Pulse Oximetry 98 Oxygen Delivery Method Sepsis Recent Fever Within 48 Hours Sepsis New/Unexplained Change in Mental Status Sepsis Action Taken by Nursing Laboratory Data Attestation: I reviewed the patient's lab results. Result diagrams: 03/24/20 19:55 03/24/20 19:55 Lab Results 03/24/20 03/24/20 03/24/20 Range/Units 19:55 19:55 19:55 WBC 8.20 (4.8-10.8) K/uL RBC 4.98 (4.2-5.4) M/uL Hgb 12.4 (12.0-16.0) g/dL Hct 38.7 (37-47) % MCV 77.7 L (80-100) fL MCH 24.9 L (25-34) pg MCHC 32.0 (32-36) g/dL RDW Std Deviation 45.4 (36.4-46.3) fL RDW Coeff of Poonam 16.0 H (11.5-14.5) % Plt Count 322 (130-400) K/uL MPV 10.0 (7.4-10.4) fL Immature Gran % (Auto) 0.1 % Neut % (Auto) 65.5 % Lymph % (Auto) 26.0 % Whitman % (Auto) 8.2 % Eos % (Auto) 0.1 % Baso % (Auto) 0.1 % Immature Gran # (Auto) 0.01 (0.00-0.02) K/uL Neut # (Auto) 5.37 (1.4-6.5) K/uL Lymph # (Auto) 2.13 (1.2-3.4) K/uL Whitman # (Auto) 0.67 H (0.11-0.59) K/uL Eos # (Auto) 0.01 (0-0.5) K/uL Baso # (Auto) 0.01 (0-0.2) K/uL PT 10.4 (9.0-12.0) Seconds INR 1.0 (0.9-1.1) APTT 25.1 (21.0-31.0) Seconds PTT Ratio 0.9 Sodium 139 (136-145) mmol/L Potassium 3.4 L (3.5-5.1) mmol/L Chloride 102 (98-107) mmol/L Carbon Dioxide 27 (21-32) mmol/L Anion Gap 10.0 (3-11) BUN 10 (7-18) mg/dl Creatinine 0.83 (0.6-1.2) mg/dl Est Cr Clr Drug Dosing 96.3 ml/min Est GFR ( Amer) 106.6 Est GFR (Non-Af Amer) 92.0 BUN/Creatinine Ratio 11.7 (10-20) Glucose 107 H (70-99) mg/dl Calcium 9.8 (8.5-10.1) mg/dl Phosphorus 3.1 (2.5-4.9) mg/dl Magnesium 2.2 (1.8-2.4) mg/dl Total Bilirubin 0.4 (0.2-1) mg/dl Direct Bilirubin 0.1 (0-0.2) mg/dl AST 33 (15-37) U/L ALT 27 (12-78) U/L Alkaline Phosphatase 80 (45-117) U/L Troponin I < 0.015 (0-0.045) ng/ml Total Protein 7.9 (6.4-8.2) gm/dl Albumin 4.0 (3.4-5.0) gm/dl Globulin 3.9 (2.5-4.0) gm/dl Albumin/Globulin Ratio 1.0 (0.9-2) Lipase 47146 H (73-393) U/L HCG, Qual (Negative) 03/24/20 Range/Units 19:55 WBC (4.8-10.8) K/uL RBC (4.2-5.4) M/uL Hgb (12.0-16.0) g/dL Hct (37-47) % MCV (80-100) fL MCH (25-34) pg MCHC (32-36) g/dL RDW Std Deviation (36.4-46.3) fL RDW Coeff of Poonam (11.5-14.5) % Plt Count (130-400) K/uL MPV (7.4-10.4) fL Immature Gran % (Auto) % Neut % (Auto) % Lymph % (Auto) % Whitman % (Auto) % Eos % (Auto) % Baso % (Auto) % Immature Gran # (Auto) (0.00-0.02) K/uL Neut # (Auto) (1.4-6.5) K/uL Lymph # (Auto) (1.2-3.4) K/uL Whitman # (Auto) (0.11-0.59) K/uL Eos # (Auto) (0-0.5) K/uL Baso # (Auto) (0-0.2) K/uL PT (9.0-12.0) Seconds INR (0.9-1.1) APTT (21.0-31.0) Seconds PTT Ratio Sodium (136-145) mmol/L Potassium (3.5-5.1) mmol/L Chloride (98-107) mmol/L Carbon Dioxide (21-32) mmol/L Anion Gap (3-11) BUN (7-18) mg/dl Creatinine (0.6-1.2) mg/dl Est Cr Clr Drug Dosing ml/min Est GFR ( Amer) Est GFR (Non-Af Amer) BUN/Creatinine Ratio (10-20) Glucose (70-99) mg/dl Calcium (8.5-10.1) mg/dl Phosphorus (2.5-4.9) mg/dl Magnesium (1.8-2.4) mg/dl Total Bilirubin (0.2-1) mg/dl Direct Bilirubin (0-0.2) mg/dl AST (15-37) U/L ALT (12-78) U/L Alkaline Phosphatase (45-117) U/L Troponin I (0-0.045) ng/ml Total Protein (6.4-8.2) gm/dl Albumin (3.4-5.0) gm/dl Globulin (2.5-4.0) gm/dl Albumin/Globulin Ratio (0.9-2) Lipase (73-393) U/L HCG, Qual Negative (Negative) Administered Medications Ioversol (Optiray 320 100ml) 93 ml IV ONCE PRN PRN Reason: Interaction Checking Stop: 03/28/20 21:45 Last Admin: 03/24/20 21:46 Dose: 93 ml Documented by: [id number] Discontinued Medications Diphenhydramine HCl (Benadryl) 25 mg IV NOW STA Stop: 03/24/20 20:25 Last Admin: 03/24/20 20:38 Dose: 25 mg Documented by: [id number] Sodium Chloride (Nss 1000ml) 1,000 mls @ 999 mls/hr IV .Q1H1M ONE Stop: 03/24/20 21:24 Last Infusion: 03/24/20 21:38 Dose: 0 mls/hr Documented by: [id number] Admin: 03/24/20 20:34 Dose: 999 mls/hr Documented by: [id number] Famotidine (Pepcid 20mg Iv Push) 20 mg in 5 mls @ 2.5 mls/min IV NOW STA Stop: 03/24/20 20:25 Last Admin: 03/24/20 20:37 Dose: 2.5 mls/min Documented by: [id number] Sodium Chloride (Nss 1000ml) 1,000 mls @ 999 mls/hr IV .Q1H1M ONE Stop: 03/24/20 22:25 Last Infusion: 03/24/20 23:30 Dose: 0 mls/hr Documented by: [id number] Admin: 03/24/20 21:59 Dose: 999 mls/hr Documented by: [id number] Prochlorperazine (Compazine) 2 mls @ 1 mls/min IV ONE ONE Stop: 03/24/20 21:52 Last Admin: 03/24/20 22:00 Dose: 1 mls/min Documented by: [id number] Ceftriaxone Sodium (Rocephin) 2,000 mg in 70 mls @ 140 mls/hr IV NOW STA Stop: 03/24/20 23:02 Last Infusion: 03/25/20 00:18 Dose: 0 mls/hr Documented by: [id number] Admin: 03/24/20 23:46 Dose: 140 mls/hr Documented by: [id number] Metronidazole (Flagyl) 500 mg in 100 mls @ 100 mls/hr IV NOW STA Stop: 03/24/20 23:32 Last Infusion: 03/25/20 00:37 Dose: 0 mls/hr Documented by: [id number] Admin: 03/24/20 23:36 Dose: 100 mls/hr Documented by: [id number] Acetaminophen (Ofirmev) 1,000 mg in 100 mls @ 400 mls/hr IV NOW STA Stop: 03/25/20 00:12 Last Admin: 03/25/20 00:37 Dose: 400 mls/hr Documented by: [id number] Metoclopramide HCl (Reglan) 10 mg IV NOW STA Stop: 03/24/20 20:25 Last Admin: 03/24/20 20:34 Dose: 10 mg Documented by: [id number] Morphine Sulfate (Morphine Sulfate) 6 mg IV NOW STA Stop: 03/24/20 21:25 Last Admin: 03/24/20 22:01 Dose: Not Given Documented by: [id number] Morphine Sulfate (Morphine Sulfate) Confirm Administered Dose 4 mg .ROUTE .STK- MED ONE Stop: 03/24/20 21:55 Last Admin: 03/24/20 22:00 Dose: 4 mg Documented by: [id number] Morphine Sulfate (Morphine Sulfate) Confirm Administered Dose 2 mg .ROUTE .STK- MED ONE Stop: 03/24/20 21:55 Last Admin: 03/24/20 22:00 Dose: 2 mg Documented by: [id number] Morphine Sulfate (Morphine Sulfate) 6 mg IV NOW STA Stop: 03/24/20 23:59 Last Admin: 03/25/20 00:14 Dose: 6 mg Documented by: [id number] Ondansetron HCl (Zofran) 4 mg IV NOW STA Stop: 03/25/20 00:00 Last Admin: 03/25/20 00:13 Dose: 4 mg Documented by: [id number] Prochlorperazine (Compazine) Confirm Administered Dose 10 mg .ROUTE .STK-MED ONE Stop: 03/24/20 21:55 Last Admin: 03/24/20 22:00 Dose: Not Given Documented by: [id number] Imaging Data Radiologist's Impression: SINGLE VIEW CHEST CLINICAL HISTORY: Atypical chest pain. FINDINGS: An AP, portable, upright chest radiograph is compared to study dated 12/11/2017. The cardiomediastinal silhouette is unremarkable. The lungs and pleural spaces are clear. No pneumothorax is seen. The bony thorax is grossly intact. IMPRESSION: No active disease in the chest. -- CT SCAN OF THE ABDOMEN AND PELVIS WITH IV CONTRAST CLINICAL HISTORY: Generalized abdominal pain. COMPARISON STUDY: Abdominal CT dated 02/11/2020. TECHNIQUE: Following the IV administration of 93 cc of Optiray 320, CT scan of the abdomen and pelvis is performed from the lung bases to the proximal femora. Images are reviewed in the axial, sagittal, and coronal planes. IV contrast was administered without complication. A dose lowering technique was utilized adhering to the principles of ALARA. CT DOSE: 296.83 mGy.cm FINDINGS: Lung bases: The heart is normal in size and without pericardial effusion. There are trace pleural effusions. The lung bases are otherwise clear. Liver: The contrast-enhanced liver is normal in size, contour, and attenuation. There is no intrahepatic biliary ductal dilatation. The hepatic veins and portal veins are patent. Periportal edema is noted. Gallbladder: The gallbladder is distended. The gallbladder wall is thickened and edematous. Pericholecystic inflammation and fluid is noted. Findings are highly concerning for acute cholecystitis. Spleen: Normal in size and attenuation. Pancreas: There is faint peripancreatic stranding and trace fluid. The pancreas enhances homogeneously. The duct is normal in caliber. The splenic vein is patent. No peripancreatic fluid collection is identified. Adrenal glands: Unremarkable. Kidneys: The contrast enhanced kidneys are normal in size and without hydronephrosis. The kidneys enhance symmetrically. Abdominal vasculature: The abdominal aorta is normal in course and caliber. Bowel: There is moderate colonic fecal retention. No bowel obstruction is seen. Small duodenal diverticula are noted. The appendix is well-visualized and normal. Peritoneum: There is no intraperitoneal free air or abdominal ascites. There is a small fat-containing umbilical hernia. Lymphadenopathy: None. Pelvic viscera: The bladder, uterus, and adnexa are normal as imaged. Trace free fluid is seen in the cul-de-sac. Skeletal structures: There is mild lumbosacral scoliosis. No lytic or blastic lesions are seen. IMPRESSION: 1. Findings are highly concerning for acute cholecystitis. Consider right upper quadrant ultrasound for confirmation. 2. Question concurrent mild acute pancreatitis. No peripancreatic fluid collection is identified and the pancreas enhances homogeneously. 3. Trace pleural effusions. 4. Trace nonspecific free fluid in the cul-de-sac is likely within physiologic limits. ACT 112: Negative or not required by law. --- [facility]RAD Preliminary Findings Only See Final Report For Complete Findings US RUQ: The gallbladder is distended with sludge and associated with circumferential wall thickening and pericholecystic fluid. Positive Purdy sign. No gallstones visualized. Findings are concerning for acalculous cholecystitis in the correct clinical setting. The pancreatic duct is mildly dilated measuring up to 3 mm. No pancreatic mass. Small amount of fluid surrounds the mildly enlarged pancreatic body and also in Morison's pouch. Pancreatitis cannot be excluded. Recommend correlation with lipase. The common bile duct is dilated measuring up to 7 mm. Mild intrahepatic biliary dilatation. No visualization of choledocholithiasis on ultrasound. Radiologist: Courtney Mccoy MD Study ready at 23:36 and initial results transmitted at 23:4 Blood Pressure Blood Pressure Findings: Normal blood pressure Discharge Plan Visit Data Chief Complaint: Chest Pain Stated Complaint: CHEST PAIN, GASTRIC PAIN, NAUSEA ED Provider: Aaron Casanova Discharge Problem: Acute pancreatitis, Cholecystitis, Upper abdominal pain, Nausea & vomiting Forms Stand Alone Forms: [facility] [employer] Prescriptions Prescriptions: No Action lamotrigine 150 mg tablet 150 mg PO HS RF: 0 acyclovir 400 mg tablet 400 mg PO BID RF: 0 Rexulti 1 mg tablet 0.5 mg PO DAILY RF: 0 sertraline [Zoloft] 100 mg Tablet 150 mg PO DAILY RF: 0 risperidone [Risperdal] 0.5 mg Tablet 0.75 mg PO HS RF: 0 Prilosec OTC 20 mg Tablet,Delayed Release (Dr/Ec) 20 mg PO DAILY RF: 0 Discharge Problem: Acute pancreatitis Qualifiers: Pancreatitis type: unspecified pancreatitis type Acute pancreatitis complication: unspecified Qualified Code(s): K85.90 - Acute pancreatitis without necrosis or infection, unspecified Nausea & vomiting Qualifiers: Vomiting type: unspecified Vomiting Intractability: intractable Qualified Code(s): R11.2 - Nausea with vomiting, unspecified
[2020-03-24] MEDS ORDERED: ACETAMINOPHEN 1,000 MG/100 ML VIAL IV STA (23:58)
[2020-03-24] MEDS ORDERED: ONDANSETRON INJ 2 MG/ML 2 ML VIAL IV STA (23:59)
[2020-03-25] MEDS ORDERED: ACETAMINOPHEN 325 MG TAB PO PRN (02:15)
[2020-03-25] MEDS ORDERED: PIPERACILL/TAZOBAC CONSULT ACTIVE PRN (02:15)
--- NOTE | 2020-03-25 02:25 | History and Physical Report ---
DATE OF ADMISSION: 03/25/2020 CHIEF COMPLAINT: Severe abdominal pain radiating to chest. HISTORY OF PRESENT ILLNESS: This is a 34-year-old female with past medical history significant for allergic rhinitis, GERD, irritable bowel syndrome, plantar fascitis, fibromyalgia, history of herpes simplex type 1 infection, attention deficit disorder, anxiety, anorexia nervosa, depression, presents with severe abdominal pain after eating. At 2:00 p.m., she ate steak and zucchini. She noticed severe pain in her epigastric region radiating to the back and also in her chest. She had one episode of vomiting, no blood in the vomitus, which prompted her to come to the ER. Denies any fever, chills. She had a normal bowel movement today. No blood in the stools or black stools. No shortness of breath, no cough. No loss of sense of smell or taste. No headache, had some headache. No blurred vision, no earache, no runny nose, no sore throat. Normal bladder movements. No rash. Seems to be in pain. Imaging studies shows pancreatitis and cholecystitis. ALLERGIES: No known. PAST MEDICAL HISTORY: As mentioned above. PAST SURGICAL HISTORY: Dental surgery, laparoscopic lysis of adhesions. MEDICATIONS: The patient is on Brexpiprazole 0.5 mg p.o. daily, acyclovir 400 mg p.o. b.i.d., cetirizine 10 mg p.o. daily, Flonase 2 sprays in each nostril daily, omeprazole 10 mg p.o. daily, ibuprofen 600 mg p.r.n., Risperdal 0.75 mg p.o. daily, Zoloft 150 mg p.o. daily, Lamictal 150 mg p.o. daily, Colace 100 mg p.o. b.i.d. FAMILY HISTORY: Significant for mother had MS. SOCIAL HISTORY: Single. No smoking, no alcohol, no drug use. REVIEW OF SYMPTOMS: As per HPI. Rest of review of systems negative. PHYSICAL EXAMINATION: GENERAL: The patient is of moderate build, not in acute distress. VITAL SIGNS: Temperature 36.6, pulse 90, respiratory rate 21, blood pressure 121/82, oxygen 98% on room air. HEENT: Pupils equal, round, reactive to light. Extraocular muscles intact. NECK: Supple, no neck masses seen. CARDIOVASCULAR: S1, S2 heard, regular rate and rhythm, no murmur, no gallop. RESPIRATORY SYSTEM: Normal AP diameter. No accessory muscle use. No wheezing, no crackles. ABDOMEN: Soft, bowel sounds sluggish. Tenderness in the epigastric region. Guarding present. No distention. CENTRAL NERVOUS SYSTEM: Cranial nerves II-XII grossly intact. Nonfocal. EXTREMITIES: No edema, no erythema. LABORATORY DATA: WBC 8.0, hemoglobin 12.4, hematocrit 38.7, platelets 322. PT 10.4, INR 1, APTT 25.1. Sodium 139, potassium 3.4, chloride 102, bicarbonate 27, BUN 10, creatinine 0.8, serum glucose 107, calcium 9.8, phosphorus 3.1, magnesium 2.2, total bilirubin 0.4, direct bilirubin 0.1, AST 33, ALT 27, alkaline phosphatase 80, troponin I less than 0.015. Lipase 14,748. HCG negative. Chest x-ray: No active disease in the chest. IMAGING: CT of abdomen and pelvis shows highly a concern for acute cholecystitis, question of mild acute pancreatitis. Gallbladder ultrasound preliminary report shows gallbladder is distended with sludge and associated with circumferential wall thickening and pericholecystic fluid, positive Purdy sign. No gallstones visualized. Findings are concerning for acalculous cholecystitis in the clinical setting. The pancreatic duct is mildly dilated measuring up to 3 mm. No pancreatic mass, small amount of fluid surrounding the mildly enlarged pancreatic body and also in Trivedi's pouch. Common bile duct is dilated measuring up to 7 mm with mild intrahepatic biliary dilatation. No visualization of choledocholithiasis on the ultrasound. EKG: Shows normal sinus rhythm, rate of 68, no significant change was found. ASSESSMENT AND PLAN: This is a 34-year-old female who presents with abdominal pain and found to have cholecystitis and pancreatitis. 1. Cholecystitis so far looks like acalculous cholecystitis but the common bile duct is dilated on ultrasound preliminary report, but there were no gallstones visualized. We will get an MRCP to rule out any choledocholithiasis, though LFTs are normal. Treat with IV Zosyn, n.p.o., IV fluids and consult surgery and GI in a.m. 2. Pancreatitis, possibly from above. Aggressive fluids with IV Ringer's lactate 200 mL per hour, IV Dilaudid p.r.n., n.p.o., IV antiemetics. Await GI input. 3. History of attention deficit disorder, anorexia nervosa, and depression. Continue her home medication of Brexpiprazole, Risperdal, Zoloft and Lamictal. 5. Gastroesophageal reflux disease, will place her on IV Protonix for now. 6. History of herpes simplex type 1 infection. Continue acyclovir. 7. Allergic rhinitis, on Flonase. 8. Deep venous thrombosis prophylaxis, sequential compression devices. DISPOSITION: Admit to medical floor. Expect to discharge home and follow with her family doctor. Level 1 full code. MTDD
[2020-03-25] MEDS: ONDANSETRON INJ 2 MG/ML 2 ML VIAL IV PRN ×4 (02:31→22:12)
[2020-03-25] MEDS: HYDROmorphone INJ 0.5 MG/0.5 ML SYR IV PRN ×7 (02:32→22:11)
[2020-03-25] MEDS: LACTATED RINGER'S 1,000 ML IV SCH ×5 (02:32→23:44)
[2020-03-25] MEDS: PIPERACILLIN/TAZOBACTAM 3.375 GM in DEXTROSE 5% 100 ML IV SCH ×3 (03:40→18:44)
[2020-03-25 07:13] LABS: Hemoglobin 11.5 g/dL (12.0-16.0); Immature Granulocytes # (auto) 0.03 K/uL (0.00-0.02); Immature Granulocytes % (auto) 0.2 %; Lymphocytes # (auto) 0.35 K/uL (1.2-3.4); Lymphocytes % (auto) 2.5 %; Mean Corpuscular Hemoglobin 24.3 pg (25-34); Mean Corpuscular Hgb Conc 31.1 g/dL (32-36); Mean Corpuscular Volume 78.2 fL (80-100); Mean Platelet Volume 9.8 fL (7.4-10.4); Monocytes # (auto) 0.66 K/uL (0.11-0.59); Monocytes % (auto) 4.7 %; Neutrophils # (auto) 12.89 K/uL (1.4-6.5); Neutrophils % (auto) 92.6 %; Platelet Count 271 K/uL (130-400); RDW Standard Deviation 45.7 fL (36.4-46.3); Red Blood Count 4.73 M/uL (4.2-5.4); White Blood Count 13.93 K/uL (4.8-10.8)
--- NOTE | 2020-03-25 07:33 | Ultrasound Report ---
ABDOMINAL ULTRASOUND, RIGHT UPPER QUADRANT HISTORY: Abnormal CT. Right upper quadrant pain. pancreatitis eval for cholecystitis. COMPARISON: Abdomen and pelvis CT 03/24/2020. FINDINGS: Pancreas: The pancreatic duct is mildly dilated measuring up to 3 mm. No pancreatic masses identified . Small amount of fluid surrounds the pancreatic body/head. Liver: Unremarkable. Gallbladder: The gallbladder is distended with sludge and associated circumferential wall thickening and pericholecystic fluid. Positive sonographic Purdy's sign is noted. CBD: 6.5 mm. Right kidney: No hydronephrosis. IMPRESSION: 1. Distended gallbladder with sludge, wall thickening, and pericholecystic fluid. In conjunction with the positive sonographic Purdy sign this is concerning for a calculus cholecystitis. Clinical corre lation recommended. 2. Small amount of fluid surrounding the pancreatic body which could be due to the adjacent cholecyst itis or a superimposed pancreatitis. Recommend correlation with pancreatic enzymes. ACT 112: Negative or not required by law. Electronically signed by: Akil Pino M.D. 03/25/2020 7:32 AM
--- NOTE | 2020-03-25 07:34 | Surgery Consultation ---
Date of Consultation March 25, 2020 Assessment & Plan (1) Cholecystitis: Patient with abdominal pain nausea and vomiting Significantly elevated lipase consistent with pancreatitis Also evidence of gallbladder wall edema consistent with cholecystitis and sludge noted on CT and ultrasound MRCP has been ordered GI consult pending We will monitor her lipase, she will likely require laparoscopic cholecystectomy when her lipase begins to normalize History of Present Illness Attending Physician: Sari Villalobos MD History of Present Illness 34-year-old female admitted through the emergency room abdominal pain nausea and vomiting Found to have an elevated lipase over 14,000, liver function studies are normal Her ultrasound and CAT scan show a dilated thickened gallbladder insistent with acute cholecystitis Gallbladder appears to contain sludge Dilated common bile duct and pancreatic duct Allergies Allergy/AdvReac Type Severity Reaction Status Date / Time promethazine Allergy Severe TONIC Verified 03/24/20 22:22 REACTION Home Medications Home Medications Medication Instructions Recorded Confirmed Type acyclovir 400 mg PO BID 03/11/19 03/24/20 History lamotrigine 150 mg PO HS 03/11/19 03/24/20 History risperidone [Risperdal] 0.75 mg PO HS 10/12/19 03/24/20 History sertraline [Zoloft] 150 mg PO DAILY 10/12/19 03/24/20 History omeprazole magnesium [Prilosec OTC] 20 mg PO DAILY 02/11/20 03/24/20 History brexpiprazole [Rexulti] 0.5 mg PO DAILY 03/24/20 03/25/20 History Patient History Medical History Anxiety and depression Anxiety attack (Inactive) Exercise-induced asthma Fibromyalgia Flank pain (Inactive) GERD (gastroesophageal reflux disease) Heart palpitations 2017 (HOLTOR MONITOR TEST DONE 2017/DR. DOBBINS) Hx of ovarian cyst Migraine Ovarian cyst (Inactive) Pelvic pain (Inactive) resulting from in vitro fertilization, antepartum (Acute) Restless leg syndrome DURING Torsion of ovary and ovarian pedicle with torsion of fallopian tube (Resolved 04/04/14) 2013 (LAP PROCEDURE) Twin gestation in second trimester (Inactive) Surgical History H/O laparoscopy History of anesthesia reaction MIGRAINES AFTER History of esophagogastroduodenoscopy (EGD) History of surgery EGG RETRIEVAL S/P section X 1 [place] teeth removed Family History Grandfather (Maternal) Colorectal cancer Diabetes Mother Multiple sclerosis Social History Preferred Language: Macedonian Communication Ability: Effective Visual Impairment: No Limitations Hearing Ability: Normal 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 Beliefs That Will Affect Care: None marital status: Current Living Situation: Spouse current occupational status: employed Other Information That Helps Us Care for You: No Feels Safe at Home: Yes Safety Concerns: Feels Safe At This Time Smoking Status: Never smoker Second Hand Exposure: Yes ( A CHILD) ; Hx Alcohol Use: No Hx Substance Use: No Review of Systems Review of Systems: All systems reviewed & are unremarkable except as noted in HPI & below Physical Exam Physical Exam: Ill-appearing female in mild distress from nominal pain Her vital signs are stable Constitutional: well nourished Respiratory: normal respiratory effort; no respiratory distress Cardiovascular: Rate/Rhythm: regular rate and regular rhythm Gastrointestinal (Abdomen): Inspection/Auscultation: abdomen not distended Skin: no rashes, warm and dry Neurologic: awake Psychiatric: Orientation: alert Results & Data Vital Signs (Past 12 Hours) Vital Signs Temp Pulse Pulse Pulse Resp BP BP 03/25/20 07:00 37.1 C 89 16 117/78 03/25/20 02:10 37 C 88 20 03/25/20 02:00 91 H 14 110/76 03/25/20 01:30 84 15 115/72 03/25/20 01:00 93 H 15 123/73 03/25/20 00:30 90 21 121/82 03/25/20 00:00 84 15 106/75 03/24/20 23:33 90 18 119/81 03/24/20 21:30 80 13 125/80 03/24/20 20:43 75 03/24/20 20:01 64 19 123/78 BP Pulse Ox 03/25/20 07:00 95 03/25/20 02:10 111/73 93 03/25/20 02:00 96 03/25/20 01:30 99 03/25/20 01:00 99 03/25/20 00:30 98 03/25/20 00:00 98 03/24/20 23:33 97 03/24/20 21:30 99 03/24/20 20:43 99 03/24/20 20:01 100 I did review the CAT scan and ultrasound PG Care Time/CCT Total # of Minutes Spent Total Time Spent with Patient: Total time spent is greater than 50% in coordina tion of care (as documented) at patient's floor/unit and/or counseling patient: Coding Level of Care Code 15101 Inpt Consult Level 4 Diagnoses Cholecystitis K81.9
[2020-03-25 07:45] LABS: Albumin Level 3.2 gm/dl (3.4-5.0); BUN Creatinine Ratio 11.2 (10-20); Bilirubin Direct 0.1 mg/dl (0-0.2); Calcium 8.2 mg/dl (8.5-10.1); Creatinine Clr Calc Pharmacy 131.1 ml/min; Est GFR (African American) 137.1; Est GFR (Non-African American) 118.3; Magnesium 1.7 mg/dl (1.8-2.4); Potassium 3.6 mmol/L (3.5-5.1)
[2020-03-25 07:52] LABS: Bilirubin,Total 0.4 mg/dl (0.2-1); Total Protein 6.4 gm/dl (6.4-8.2)
--- NOTE | 2020-03-25 08:48 | Gastrointestinal Consultation ---
Date of Consultation March 25, 2020 Assessment & Plan (1) Cholecystitis: 34 year old female presenting with abdominal pain, nausea/vomiting admitted w/ acute pancreatitis, cholecystitis on ABD US w/ normal LFTs to go for MRCP currently Treat pancreatitis LR 200/250 mL/hr Antiemetics PRN Analgesia PRN Await MRCP Appreciate general surgery recommendations Will follow. Thank you for allowing us to participate in the care of this patient. Please call with any acute changes, questions or concerns. Please see addendum below with additional recommendation from my supervising physician. (2) Acute pancreatitis: Supervising Physician Co-Signing Physician Notes I have seen and examined the patient. PE notable for slight abdominal ttp - non localized. Labs reviewed MRCP results reviewed Suspected gallstone pancreatitis. Lap stacey per surgery. No plans for preoperative eus or ercp. Outpatient EUS with a [facility] provider for further evaluation of borderline pancreatic ductal dilation. Continue IV LR prior and after procedure. GI will sign off. History of Present Illness Reason for Consultation: cholecystitis Requesting Physician: Wilfredo Attending Physician: Sari Villalobos MD History of Present Illness 34 year old female with history of allergic rhinitis, GERD, irritable bowel syndrome,plantar fascitis, fibromyalgia and others below who presents with abdominal pain, nausea/vomiting post-prandially, presented to ED for symptoms, admitted w/ concern for acute cholecystitis, question of mild acute pancreatitis. LFTs normal, lipase 14,000. Pt en route to MRCP, HPI and ROS limited. ABD US with some biliary dilation but no evidence of CBD stone. MR pending. Allergies Allergy/AdvReac Type Severity Reaction Status Date / Time promethazine Allergy Severe TONIC Verified 03/24/20 22:22 REACTION Home Medications Home Medications Medication Instructions Recorded Confirmed Type acyclovir 400 mg PO BID 03/11/19 03/24/20 History lamotrigine 150 mg PO HS 03/11/19 03/24/20 History risperidone [Risperdal] 0.75 mg PO HS 10/12/19 03/24/20 History sertraline [Zoloft] 150 mg PO DAILY 10/12/19 03/24/20 History omeprazole magnesium [Prilosec OTC] 20 mg PO DAILY 02/11/20 03/24/20 History brexpiprazole [Rexulti] 0.5 mg PO DAILY 03/24/20 03/25/20 History Patient History Medical History Anxiety and depression Anxiety attack (Inactive) Exercise-induced asthma Fibromyalgia Flank pain (Inactive) GERD (gastroesophageal reflux disease) Heart palpitations 2017 (HOLTOR MONITOR TEST DONE 2018/DR. DOBBINS) Hx of ovarian cyst Migraine Ovarian cyst (Inactive) Pelvic pain (Inactive) resulting from in vitro fertilization, antepartum (Acute) Restless leg syndrome DURING Torsion of ovary and ovarian pedicle with torsion of fallopian tube (Resolved 04/04/14) 2013 (LAP PROCEDURE) Twin gestation in second trimester (Inactive) Surgical History H/O laparoscopy History of anesthesia reaction MIGRAINES AFTER History of esophagogastroduodenoscopy (EGD) History of surgery EGG RETRIEVAL S/P section X 1 [place] teeth removed Family History Grandfather (Maternal) Colorectal cancer Diabetes Mother Multiple sclerosis Social History Preferred Language: Czech Communication Ability: Effective Visual Impairment: No Limitations Hearing Ability: Normal 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 Beliefs That Will Affect Care: None marital status: Current Living Situation: Spouse current occupational status: employed Other Information That Helps Us Care for You: No Feels Safe at Home: Yes Safety Concerns: Feels Safe At This Time Smoking Status: Never smoker Second Hand Exposure: Yes ( A CHILD) ; Hx Alcohol Use: No Hx Substance Use: No Review of Systems Constitutional: no fever, no chills and no fatigue Respiratory: no cough and no dyspnea Cardiovascular: no chest pain and no dyspnea Gastrointestinal: + abdominal pain Physical Exam Constitutional: no acute distress Neck: trachea midline Respiratory: normal respiratory effort; no respiratory distress Cardiovascular: Rate/Rhythm: + abnormal rate and + abnormal rhythm Gastrointestinal (Abdomen): Inspection/Auscultation: abdomen not distended and + abnormal bowel sounds Percussion/Palpation: + abdomen tender and abdomen soft Skin: no rashes, warm and dry Results & Data ([facility]) Vital Signs (Past 12 Hours) Vital Signs Temp Pulse Pulse Pulse Resp BP BP 03/25/20 07:00 37.1 C 89 16 117/78 05/19/20 02:10 37 C 88 20 03/25/20 02:00 91 H 14 110/76 03/25/20 01:30 84 15 115/72 03/25/20 01:00 93 H 15 123/73 03/25/20 00:30 90 21 121/82 03/25/20 00:00 84 15 106/75 03/24/20 23:33 90 18 119/81 03/24/20 21:30 80 13 125/80 BP Pulse Ox 03/25/20 07:00 95 03/25/20 02:10 111/73 93 03/25/20 02:00 96 03/25/20 01:30 99 03/25/20 01:00 99 03/25/20 00:30 98 03/25/20 00:00 98 03/24/20 23:33 97 03/24/20 21:30 99 Laboratory Results 03/25/20 03/25/20 03/24/20 Range/Units 06:58 06:58 19:55 WBC 13.93 H (4.8-10.8) K/uL RBC 4.73 (4.2-5.4) M/uL Hgb 11.5 L (12.0-16.0) g/dL Hct 37.0 (37-47) % MCV 78.2 L (80-100) fL MCH 24.3 L (25-34) pg MCHC 31.1 L (32-36) g/dL RDW Std Deviation 45.7 (36.4-46.3) fL RDW Coeff of Poonam 16.0 H (11.5-14.5) % Plt Count 271 (130-400) K/uL MPV 9.8 (7.4-10.4) fL Immature Gran % (Auto) 0.2 % Neut % (Auto) 92.6 % Lymph % (Auto) 2.5 % [place] % (Auto) 4.7 % Eos % (Auto) 0.0 % Baso % (Auto) 0.0 % Immature Gran # (Auto) 0.03 H (0.00-0.02) K/uL Neut # (Auto) 12.89 H (1.4-6.5) K/uL Lymph # (Auto) 0.35 L (1.2-3.4) K/uL [place] # (Auto) 0.66 H (0.11-0.59) K/uL Eos # (Auto) 0.00 (0-0.5) K/uL Baso # (Auto) 0.00 (0-0.2) K/uL PT (9.0-12.0) Seconds INR (0.9-1.1) APTT (21.0-31.0) Seconds PTT Ratio Sodium 138 (136-145) mmol/L Potassium 3.6 (3.5-5.1) mmol/L Chloride 106 (98-107) mmol/L Carbon Dioxide 25 (21-32) mmol/L Anion Gap 7.0 (3-11) BUN 7 (7-18) mg/dl Creatinine 0.61 (0.6-1.2) mg/dl Est Cr Clr Drug Dosing 131.1 ml/min Est GFR ( Amer) 137.1 Est GFR (Non-Af Amer) 118.3 BUN/Creatinine Ratio 11.2 (10-20) Glucose 144 H (70-99) mg/dl Calcium 8.2 L D (8.5-10.1) mg/dl Phosphorus (2.5-4.9) mg/dl Magnesium 1.7 L (1.8-2.4) mg/dl Total Bilirubin 0.4 (0.2-1) mg/dl Direct Bilirubin 0.1 (0-0.2) mg/dl AST 50 H (15-37) U/L ALT 54 (12-78) U/L Alkaline Phosphatase 63 (45-117) U/L Troponin I (0-0.045) ng/ml Total Protein 6.4 (6.4-8.2) gm/dl Albumin 3.2 L (3.4-5.0) gm/dl Globulin (2.5-4.0) gm/dl Albumin/Globulin Ratio (0.9-2) Lipase 52119 H (73-393) U/L HCG, Qual Negative (Negative) 03/24/20 03/24/20 03/24/20 Range/Units 19:55 19:55 19:55 WBC 8.20 (4.8-10.8) K/uL RBC 4.98 (4.2-5.4) M/uL Hgb 12.4 (12.0-16.0) g/dL Hct 38.7 (37-47) % MCV 77.7 L (80-100) fL MCH 24.9 L (25-34) pg MCHC 32.0 (32-36) g/dL RDW Std Deviation 45.4 (36.4-46.3) fL RDW Coeff of Poonam 16.0 H (11.5-14.5) % Plt Count 322 (130-400) K/uL MPV 10.0 (7.4-10.4) fL Immature Gran % (Auto) 0.1 % Neut % (Auto) 65.5 % Lymph % (Auto) 26.0 % [place] % (Auto) 8.2 % Eos % (Auto) 0.1 % Baso % (Auto) 0.1 % Immature Gran # (Auto) 0.01 (0.00-0.02) K/uL Neut # (Auto) 5.37 (1.4-6.5) K/uL Lymph # (Auto) 2.13 (1.2-3.4) K/uL [place] # (Auto) 0.67 H (0.11-0.59) K/uL Eos # (Auto) 0.01 (0-0.5) K/uL Baso # (Auto) 0.01 (0-0.2) K/uL PT 10.4 (9.0-12.0) Seconds INR 1.0 (0.9-1.1) APTT 25.1 (21.0-31.0) Seconds PTT Ratio 0.9 Sodium 139 (136-145) mmol/L Potassium 3.4 L (3.5-5.1) mmol/L Chloride 102 (98-107) mmol/L Carbon Dioxide 27 (21-32) mmol/L Anion Gap 10.0 (3-11) BUN 10 (7-18) mg/dl Creatinine 0.83 (0.6-1.2) mg/dl Est Cr Clr Drug Dosing 96.3 ml/min Est GFR ( Amer) 106.6 Est GFR (Non-Af Amer) 92.0 BUN/Creatinine Ratio 11.7 (10-20) Glucose 107 H (70-99) mg/dl Calcium 9.8 (8.5-10.1) mg/dl Phosphorus 3.1 (2.5-4.9) mg/dl Magnesium 2.2 (1.8-2.4) mg/dl Total Bilirubin 0.4 (0.2-1) mg/dl Direct Bilirubin 0.1 (0-0.2) mg/dl AST 33 (15-37) U/L ALT 27 (12-78) U/L Alkaline Phosphatase 80 (45-117) U/L Troponin I < 0.015 (0-0.045) ng/ml Total Protein 7.9 (6.4-8.2) gm/dl Albumin 4.0 (3.4-5.0) gm/dl Globulin 3.9 (2.5-4.0) gm/dl Albumin/Globulin Ratio 1.0 (0.9-2) Lipase 48768 H (73-393) U/L HCG, Qual (Negative) (1) Acute pancreatitis Acute pancreatitis complication: unspecified Pancreatitis type: unspecified pancreatitis type Qualified Code(s): K85.90 - Acute pancreatitis without necr osis or infection, unspecified
[2020-03-25] MEDS: PANTOprazole 40 MG in SYRINGE 0 ML IV SCH ×2 (09:12→20:26)
[2020-03-25] MEDS: SERTRALINE HCL 50 MG TABLET PO SCH (09:18)
[2020-03-25] MEDS: ACYCLOVIR 400 MG TAB PO SCH ×2 (09:24→20:21)
--- NOTE | 2020-03-25 10:11 | Magnetic Resonance Report ---
MRCP CLINICAL HISTORY: Cholecystitis, pancreatitis, choledocholithiasis? TECHNIQUE: Utilizing a 1.5 Caroline magnet and dedicated coil, multiplanar, multiecho imaging of the up er abdomen was performed utilizing heavily T2 weighted pulsing sequences without IV contrast. COMPARISON STUDY: CT of the abdomen and pelvis and right upper quadrant ultrasound March 24, 2020. FINDINGS: No intra or extrahepatic biliary ductal dilatation is noted. The common bile duct measures 6 mm in caliber. No common bile duct calculi are identified. There is mild dilatation of the pancreat ic duct at the level of the pancreatic head and uncinate process. The pancreatic duct measures 4 mm i n caliber. Incidental note is made of a diverticulum at the junction of the second and third portions of the duodenum. There is no evidence for pancreas divisum. Extensive peripancreatic fluid has signi ficantly increased since CT of March 24, 2020. The pancreas is edematous. The gallbladder is mildly dis tended. No gallstones are identified. There may be mild gallbladder wall thickening. Unenhanced image s of the liver, spleen, adrenal glands and kidneys are unremarkable. There is no hydronephrosis. Trac e bilateral pleural effusions are incidentally noted. IMPRESSION: 1. No biliary ductal dilatation. No common bile duct calculi identified. 2. Significant increase in extensive peripancreatic fluid consistent with acute pancreatitis. No mono pancreatic fluid collections. 3. Mildly distended gallbladder with gallbladder wall thickening. No gallstones identified. The findi ngs may reflect acalculus cholecystitis. 4. Duodenal diverticulum. ACT 112: Negative or not required by law. Electronically signed by: Asher Cervantes M.D. 03/25/2020 10:10 AM
[2020-03-25] MEDS: PROCHLORPERAZINE 10 MG in SYRINGE 8 ML IV PRN ×2 (10:50→19:33)
[2020-03-25] MEDS ORDERED: ONDANSETRON INJ 2 MG/ML 2 ML VIAL IV ONE (12:32)
[2020-03-25] MEDS ORDERED: ONDANSETRON INJ 2 MG/ML 2 ML VIAL ONE (12:37)
[2020-03-25] MEDS ORDERED: MAGNESIUM SULFATE / D5W 1 GM/100 ML BAG IV ONE (13:00)
--- NOTE | 2020-03-25 15:58 | Electrocardiogram Report ---
Test Reason : Blood Pressure : / mmHG Vent. Rate : 068 BPM Atrial Rate : 068 BPM P-R Int : 130 ms QRS Dur : 080 ms QT Int : 424 ms P-R-T Axes : 048 048 063 degrees QTc Int : 450 ms Normal sinus rhythm Low voltage QRS Borderline ECG When compared with ECG of 11-DEC-2017 16:31, No significant change was found Confirmed by Ross Johnson ([id number]) on 03/25/2020 3:58:18 PM Referred By: REFERRED SELF Confirmed By:Dragan Johnson
--- NOTE | 2020-03-25 16:46 | Hospitalist Progress Note ---
Date of Service March 25, 2020 Assessment & Plan (1) Cholecystitis: (2) Acute pancreatitis: (3) Upper abdominal pain: 34-year-old female who presents with abdominal pain and found to have cholecystitis and pancreatitis 1. Cholecystitis so far looks like acalculous cholecystitis but the common bile duct is dilated on ultrasound, but there were no gallstones visualized - MRCP ordered, no choledocholithiasis, positive for duodenal diverticulum -LFTs are normal treated with bowel rest , IV fluid appreciate input from GI an surgery plan for laparoscopic cholecystectomy once acute pancreatitis resolves 2. Pancreatitis, possibly from above. -Lipase above 14,000 on admission -treated with IV fluid -Pain control with IV Dilaudid p.r.n., n.p.o., - IV antiemetics. GI recommend outpatient EUS in 4 to 6 weeks with [facility] provider for pancreatic duct dilatation, signed off 8. Hypokalemia -replaced DVT prophylaxis, SCDs. Dispo: home when medically stable Admission and Anticipated Discharge Date Admission Date: March 25, 2020 Subjective pt had persisted nausea today symptoms improved with alternating between Zofran and Phenergan c/p abdominal pain 6/10 no fever or chills Physical Exam Constitutional: WD/WN, vitals as above no acute distress Eyes: PERRL, conjunctivae normal, anicteric sclerae ENMT: external ear and nose normal, oropharynx normal Neck: trachea midline, no thyromegaly Respiratory: normal respiratory effort, lungs clear to auscultation Cardiovascular: RRR, no murmur, no edema Gastrointestinal (Abdomen): Percussion/Palpation: + abdomen tender and abdomen soft Musculoskeletal: no cyanosis or clubbing, extremities motor strength 5/5 Skin: no rashes, warm and dry Neurologic: PERRL, EOMI, accommodation nl, no face palsy, no dysarthria Psychiatric: A+Ox3, euthymic affect Results & Data Results & Data ([facility]) Vital Signs (Past 12 Hours) Vital Signs Temp Pulse Resp BP Pulse Ox 03/25/20 14:56 37.6 C H 84 18 105/71 96 03/25/20 07:00 37.1 C 89 16 117/78 95 (1) Acute pancreatitis Acute pancreatitis complication: unspecified Pancreatitis type: unspecified pancreatitis type Qualified Code(s): K85.90 - Acute pancreatitis without necrosis or infection, unspecified
[2020-03-25] MEDS: lamoTRIgine 100 MG TAB PO SCH (20:21)
[2020-03-25] MEDS: risperiDONE 0.5 MG TABLET PO SCH (20:21)
[2020-03-26] MEDS: HYDROmorphone INJ 0.5 MG/0.5 ML SYR IV PRN ×5 (02:53→20:27)
[2020-03-26] MEDS: PIPERACILLIN/TAZOBACTAM 3.375 GM in DEXTROSE 5% 100 ML IV SCH ×3 (02:54→19:12)
[2020-03-26] MEDS: PROCHLORPERAZINE 10 MG in SYRINGE 8 ML IV PRN ×2 (03:06→21:31)
[2020-03-26] MEDS: LACTATED RINGER'S 1,000 ML IV SCH ×3 (05:15→20:39)
--- NOTE | 2020-03-26 07:14 | Surgery Progress Note ---
Date of Service March 26, 2020 Assessment & Plan (1) Acute pancreatitis: gallstone/ sludge pancreatitis some improvement check labs, lipase decrease IV, possible clears will add to OR tomorrow ( tentative )- some concern for pain from cholecystitis and gb with sludge does not have signs of severe pancreatitis- labs/vitals Subjective says- less pain- mid upper abd , less emesis excellent urine output GI signed off rec dilaudid on regular basis vitals stable- no acute changes Review of Systems Review of Systems: All systems reviewed & are unremarkable except as noted in HPI & below Physical Exam Physical Exam: less anxious abd- min distention- upper abd tenderness and RUQ Constitutional: well developed; no acute distress Respiratory: normal respiratory effort; no respiratory distress Cardiovascular: Rate/Rhythm: regular rhythm Skin: no rashes, warm and dry Neurologic: awake Psychiatric: Orientation: cooperative Results & Data Vital Signs (Past 12 Hours) Vital Signs Temp Pulse Resp BP Pulse Ox 03/25/20 23:08 37.0 C 95 H 16 114/73 93 PG Care Time/CCT Total # of Minutes Spent Total Time Spent with Patient: Total time spent is greater than 50% in coordination of care (as documented) at patient's floor/unit and/or counseling patient: Coding Level of Care Code 36237 Inpt Consult Level 3 Diagnoses Acute pancreatitis K85.90 Acute pancreatitis complication: unspecified Pancreatitis type: unspecified pancreatitis type (1) Acute pancreatitis Acute pancreatitis complication: unspecified Pancreatitis type: unspecified pancreatitis type Qualified Code(s): K85.90 - Acute pancreatitis without necrosis or infection, unspecified
[2020-03-26 07:17] LABS: Basophils # (auto) 0.01 K/uL (0-0.2); Basophils % (auto) 0.1 %; Hematocrit (blood only) 33.9 % (37-47); Hemoglobin 10.8 g/dL (12.0-16.0); Immature Granulocytes # (auto) 0.02 K/uL (0.00-0.02); Immature Granulocytes % (auto) 0.2 %; Lymphocytes # (auto) 0.76 K/uL (1.2-3.4); Lymphocytes % (auto) 6.7 %; Mean Corpuscular Hgb Conc 31.9 g/dL (32-36); Mean Corpuscular Volume 78.5 fL (80-100); Mean Platelet Volume 9.7 fL (7.4-10.4); Monocytes # (auto) 0.66 K/uL (0.11-0.59); Monocytes % (auto) 5.9 %; Neutrophils # (auto) 9.83 K/uL (1.4-6.5); Neutrophils % (auto) 87.1 %; Platelet Count 237 K/uL (130-400); RDW Coefficient of Variation 16.2 % (11.5-14.5); RDW Standard Deviation 46.9 fL (36.4-46.3); Red Blood Count 4.32 M/uL (4.2-5.4); White Blood Count 11.28 K/uL (4.8-10.8)
[2020-03-26 07:43] LABS: Albumin Level 2.7 gm/dl (3.4-5.0); BUN Creatinine Ratio 8.9 (10-20); Creatinine Clr Calc Pharmacy 153.8 ml/min; Est GFR (African American) 144.5; Est GFR (Non-African American) 124.7; Magnesium 1.8 mg/dl (1.8-2.4); Potassium 3.4 mmol/L (3.5-5.1)
[2020-03-26 07:48] LABS: Albumin Globulin Ratio 0.9 (0.9-2); Bilirubin,Total 0.7 mg/dl (0.2-1); Total Protein 5.7 gm/dl (6.4-8.2)
[2020-03-26] MEDS ORDERED: POTASSIUM PHOS 3 MMOL/1 ML INFUSION IV STA (08:23)
--- NOTE | 2020-03-26 08:24 | Hospitalist Progress Note ---
Date of Service March 26, 2020 Assessment & Plan (1) Cholecystitis: (2) Acute pancreatitis: (3) Upper abdominal pain: 34-year-old female who presents with abdominal pain and found to have cholecystitis and pancreatitis 1. Cholecystitis so far looks like acalculous cholecystitis but the common bile duct is dilated on ultrasound, but there were no gallstones visualized - MRCP ordered, no choledocholithiasis, positive for duodenal diverticulum -LFTs are normal -Treat with IV Zosyn, n.p.o. - will now allow clear liquid diet -IV fluids LR 200 ml/hr, now down to 125 ml/hr -surgery consulted -plan for possible lap cholecystectomy tomorrow - GI consulted 2. Pancreatitis, possibly from above. -Lipase above 14,000 on admission -Initially aggressive fluids with IV Ringer's lactate 200 mL per hour, now down to 125 mils per hour -Pain control with IV Dilaudid p.r.n., n.p.o., now trying clear liquid diet, tolerates well - IV antiemetics. GI consulted, recommend outpatient EUS in 4 to 6 weeks with [facility] provider for pancreatic duct dilatation, signed off 3. History of attention deficit disorder, anorexia nervosa, and depression. Continue her home medication of Brexpiprazole, Risperdal, Zoloft and Lamictal 5. Gastroesophageal reflux disease, IV Protonix for now. 6. History of herpes simplex type 1 infection. Continue acyclovir. 7. Allergic rhinitis, on Flonase. 8. Hypokalemia -Likely secondary to n.p.o. status and aggressive IV fluids -Replace and monitor DVT prophylaxis, SCDs. Dispo: home when medically stable Admission and Anticipated Discharge Date Admission Date: March 25, 2020 Subjective No acute events overnight, patient is lying in bed in no acute distress. Says her pain is now more diffuse however seems better controlled. She tried some Jell-O and some broth this morning, so far tolerates well. No nausea or vomiting. Also denies any fevers or chills, shortness of breath. Last bowel movement on Tuesday. Urinate is a difficulty. GI signed off, follow up as outpt IV fluids decreased replace Potassium Phos Poss. lap cholecystectomy tomorrow (03/27) Review of Systems Review of Systems: All systems reviewed & are unremarkable except as noted in HPI & below Constitutional: no fever and no chills Respiratory: no cough and no dyspnea Cardiovascular: no chest pain and no palpitations Gastrointestinal: + abdominal pain (more diffuse now) Genitourinary: no dysuria Physical Exam Physical Exam: GENERAL: Young female lying in bed, in no acute distress HEENT: Normocephalic, atraumatic, pupils equal, round, reactive to light. Extraocular muscles intact. NECK: Supple, no neck masses seen. CARDIOVASCULAR: S1, S2 heard, regular rate and rhythm, no murmur, no gallop. RESPIRATORY SYSTEM: Normal AP diameter. No accessory muscle use. No wheezing, rhonchi, or crackles. ABDOMEN: Soft, bowel sounds sluggish. Tenderness to palpation mainly in the epigastric region. No distention. CENTRAL NERVOUS SYSTEM: Alert and oriented 3, no facial symmetry, speech fluent, cranial nerves II-XII grossly intact. Moves all 4 extremities spontaneously EXTREMITIES: No edema, no erythema. SKIN: Warm, dry, well perfused PSYCH: Euthymic affect Results & Data Results & Data ([facility]) Vital Signs (Past 12 Hours) Vital Signs Temp Pulse Resp BP BP Pulse Ox 03/26/20 07:26 37.3 C 99 H 16 107/72 94 03/25/20 23:08 37.0 C 95 H 16 114/73 93 Laboratory Results 03/26/20 03/26/20 Range/Units 07:00 07:00 WBC 11.28 H (4.8-10.8) K/uL RBC 4.32 (4.2-5.4) M/uL Hgb 10.8 L (12.0-16.0) g/dL Hct 33.9 L (37-47) % MCV 78.5 L (80-100) fL MCH 25.0 (25-34) pg MCHC 31.9 L (32-36) g/dL RDW Std Deviation 46.9 H (36.4-46.3) fL RDW Coeff of Poonam 16.2 H (11.5-14.5) % Plt Count 237 (130-400) K/uL MPV 9.7 (7.4-10.4) fL Immature Gran % (Auto) 0.2 % Neut % (Auto) 87.1 % Lymph % (Auto) 6.7 % Jennings % (Auto) 5.9 % Eos % (Auto) 0.0 % Baso % (Auto) 0.1 % Immature Gran # (Auto) 0.02 (0.00-0.02) K/uL Neut # (Auto) 9.83 H (1.4-6.5) K/uL Lymph # (Auto) 0.76 L (1.2-3.4) K/uL Jennings # (Auto) 0.66 H (0.11-0.59) K/uL Eos # (Auto) 0.00 (0-0.5) K/uL Baso # (Auto) 0.01 (0-0.2) K/uL Sodium 140 (136-145) mmol/L Potassium 3.4 L (3.5-5.1) mmol/L Chloride 108 H (98-107) mmol/L Carbon Dioxide 26 (21-32) mmol/L Anion Gap 6.0 (3-11) BUN 5 L (7-18) mg/dl Creatinine 0.52 L (0.6-1.2) mg/dl Est Cr Clr Drug Dosing 153.8 ml/min Est GFR ( Amer) 144.5 Est GFR (Non-Af Amer) 124.7 BUN/Creatinine Ratio 8.9 L (10-20) Glucose 87 (70-99) mg/dl Calcium 8.0 L (8.5-10.1) mg/dl Phosphorus 2.0 L D (2.5-4.9) mg/dl Magnesium 1.8 (1.8-2.4) mg/dl Total Bilirubin 0.7 (0.2-1) mg/dl Direct Bilirubin Pending AST 38 H (15-37) U/L ALT 50 (12-78) U/L Alkaline Phosphatase 62 (45-117) U/L Total Protein 5.7 L (6.4-8.2) gm/dl Albumin 2.7 L (3.4-5.0) gm/dl Globulin 3.0 (2.5-4.0) gm/dl Albumin/Globulin Ratio 0.9 (0.9-2) Lipase 4914 H (73-393) U/L Medications Administered Current Inpatient Medications Acetaminophen (Tylenol) 650 mg PO Q4H PRN PRN Reason: pain/fever Stop: 04/24/20 02:14 Acyclovir (Zovirax) 400 mg PO BID [facility] Stop: 04/24/20 08:59 Last Admin: 03/25/20 20:21 Dose: Not Given Documented by: Hydromorphone HCl (Dilaudid) 0.5 mg IV Q3H PRN PRN Reason: Pain Stop: 04/08/20 02:14 Last Admin: 03/26/20 02:53 Dose: 0.5 mg Documented by: Pantoprazole Sodium 40 mg/ (Syringe) 10 mls @ 5 mls/min IV BID [facility]VA Stop: 04/24/20 08:59 Last Admin: 03/25/20 20:26 Dose: 5 mls/min Documented by: Lactated Ringer's (Lr) 1,000 mls @ 125 mls/hr IV .Q8H [facility] Stop: 04/24/20 02:14 Last Infusion: 03/26/20 06:24 Dose: 125 mls/hr Documented by: Piperacillin Sod/Tazobactam (Sod 3.375 gm/ Dextrose) 115 mls @ 28.75 mls/hr IV Q8H [facility]; Protocol Stop: 04/04/20 02:59 Last Admin: 03/26/20 02:54 Dose: 28.8 mls/hr Documented by: Prochlorperazine 10 mg/ (Syringe) 10 mls @ 5 mls/min IV Q6 PRN PRN Reason: Nausea And Vomiting Stop: 04/24/20 10:19 Last Admin: 03/26/20 03:06 Dose: 5 mls/min Documented by: Lamotrigine (Lamictal) 150 mg PO HS [facility] Stop: 04/24/20 20:59 Last Admin: 03/25/20 20:21 Dose: Not Given Documented by: Miscellaneous (Order Awaiting Action) 1 ea N/A QS [facility] Stop: 04/24/20 07:59 Last Admin: 03/25/20 23:45 Dose: Not Given Documented by: Miscellaneous Information (Consult) 1 ea N/A UD PRN PRN Reason: Consult Stop: 04/24/20 02:14 Ondansetron HCl (Zofran) 4 mg IV Q4H PRN PRN Reason: Nausea Stop: 04/24/20 02:14 Last Admin: 03/25/20 22:12 Dose: 4 mg Documented by: Potassium Phosphate (Potassium Phosphate Replace) 15 mmol IV NOW STA Stop: 03/26/20 08:24 Risperidone (Risperdal) 0.75 mg PO HS [facility]VA Stop: 04/24/20 20:59 Last Admin: 03/25/20 20:21 Dose: Not Given Documented by: Sertraline HCl (Zoloft) 150 mg PO DAILY [facility] Stop: 04/24/20 08:59 Last Admin: 03/25/20 09:18 Dose: 150 mg Documented by: (1) Acute pancreatitis Acute pancreatitis complication: unspecified Pancreatitis type: unspecified pancreatitis type Qualified Code(s): K85.90 - Acute pancreatitis without necrosis or infection, unspecified
[2020-03-26] MEDS ORDERED: POTASSIUM PHOSPHATE 15 MMOL in SODIUM CHLORIDE 0.9% 250 ML IV ONE (09:00)
[2020-03-26 09:04] LABS: Bilirubin Direct 0.2 mg/dl (0-0.2)
[2020-03-26] MEDS: PANTOprazole 40 MG in SYRINGE 0 ML IV SCH ×2 (09:45→20:35)
[2020-03-26] MEDS: SERTRALINE HCL 50 MG TABLET PO SCH ×2 (09:45→09:57)
[2020-03-26] MEDS: ACYCLOVIR 400 MG TAB PO SCH ×2 (09:45→20:32)
[2020-03-26] MEDS ORDERED: POTASSIUM CHLORIDE 20 MEQ TABCR PO STA (11:20)
--- NOTE | 2020-03-26 13:49 | Anesthesiology Consultation ---
Date of Service March 26, 2020 Assessment & Plan Chart Review Chart Review: Acceptable Risk for Surgery and Patient NOT seen in Pre Admission Testing Consults Requested none Proposed Anesthesia Risk / Benefits Reviewed With: PT / POA / Parent / Guardian, Accepts Plan and Informed Consent Obtained History Surgery Operation Date: 03/27/20 11:20 Proposed Procedures p Laparoscopic Cholecystectomy - Jose Liriano MD, FACS Height/Weight Height: 5 ft 8 in Weight: 66.7 kg Allergies Allergy/AdvReac Type Severity Reaction Status Date / Time promethazine Allergy Severe TONIC Verified 03/24/20 22:22 REACTION Medications Home Medications Medication Instructions Recorded Confirmed Last Taken acyclovir 400 mg PO BID 03/11/19 03/24/20 10/12/19 lamotrigine 150 mg PO HS 03/11/19 03/24/20 10/11/19 risperidone [Risperdal] 0.75 mg PO HS 10/12/19 03/24/20 10/11/19 sertraline [Zoloft] 150 mg PO DAILY 10/12/19 03/24/20 10/11/19 omeprazole magnesium [Prilosec OTC] 20 mg PO DAILY 02/11/20 03/24/20 Unknown brexpiprazole [Rexulti] 0.5 mg PO DAILY 03/24/20 03/25/20 Unknown Active Medications Generic Name Dose Route Start Last Admin Trade Name Freq PRN Reason Stop Dose Admin Acyclovir 400 mg 03/25/20 09:00 03/26/20 09:45 Zovirax PO 04/24/20 08:59 400 mg BID ELVA Administration Hydromorphone HCl 0.5 mg 03/25/20 02:15 03/26/20 09:50 Dilaudid IV 04/08/20 02:14 0.5 mg Q3H PRN Administration Pain Pantoprazole Sodium 40 mg/ 10 mls @ 5 mls/min 03/25/20 09:00 03/26/20 09:45 Syringe IV 04/24/20 08:59 5 mls/min BID ELVA Administration Lactated Ringer's 1,000 mls @ 125 mls/hr 03/25/20 02:15 03/26/20 12:35 Lr IV 04/24/20 02:14 125 mls/hr .Q8H [facility]VA Administration Piperacillin Sod/Tazobactam 115 mls @ 28.75 mls/hr 03/25/20 03:00 03/26/20 12:35 Sod 3.375 gm/ Dextrose IV 04/04/20 02:59 28.8 mls/hr Q8H ELVA Administration Protocol Prochlorperazine 10 mg/ 10 mls @ 5 mls/min 03/25/20 10:20 03/26/20 03:06 Syringe IV 04/24/20 10:19 5 mls/min Q6 PRN Administration Nausea And Vomiting Lamotrigine 150 mg 03/25/20 21:00 03/25/20 20:21 Lamictal PO 04/24/20 20:59 Not Given HS ELVA Miscellaneous 1 ea 03/25/20 08:00 03/26/20 09:45 Order Awaiting Action N/A 04/24/20 07:59 Not Given QS [facility]VA Ondansetron HCl 4 mg 03/25/20 12:31 03/25/20 22:12 Zofran IV 04/24/20 02:14 4 mg Q4H PRN Administration Nausea Risperidone 0.75 mg 03/25/20 21:00 03/25/20 20:21 Risperdal PO 04/24/20 20:59 Not Given HS ELVA Sertraline HCl 150 mg 03/25/20 09:00 03/26/20 09:57 Zoloft PO 04/24/20 08:59 Not Given DAILY ELVA Past Medical History Medical History Anxiety and depression Anxiety attack (Inactive) Exercise-induced asthma Fibromyalgia Flank pain (Inactive) GERD (gastroesophageal reflux disease) Heart palpitations 2017 (HOLTOR MONITOR TEST DONE 2018/DR. DOBBINS) Hx of ovarian cyst Migraine Ovarian cyst (Inactive) Pelvic pain (Inactive) resulting from in vitro fertilization, antepartum (Acute) Restless leg syndrome DURING Torsion of ovary and ovarian pedicle with torsion of fallopian tube (Resolved 04/04/14) 2013 (LAP PROCEDURE) Twin gestation in second trimester (Inactive) Exercise / Class Metabolic Activity II 4-5 Yardwork/Stairs/Walk up hill Past Family History Family History Grandfather (Maternal) Colorectal cancer Diabetes Mother Multiple sclerosis Past Surgical History Surgical History H/O laparoscopy History of anesthesia reaction MIGRAINES AFTER History of esophagogastroduodenoscopy (EGD) History of surgery EGG RETRIEVAL S/P section X 1 [place] teeth removed Past Anesthesia History No Hx of Anesthesia Complications and No Family Hx of Anesthesia Complications History of PONV No Hx of PONV and No Hx of Motion Sickness Social History Smoking Status: Never smoker Hx Alcohol Use: No Hx Substance Use: No substance use type: does not use Physical Exam Vital Signs Last Vital Signs Temp 37.3 C 03/26/20 07:26 Pulse 99 H 03/26/20 07:26 Resp 16 03/26/20 07:26 BP 107/72 03/26/20 07:26 Pulse Ox 94 03/26/20 07:26 ENMT Mouth: no dentition abnormality Thyromental Distance: > or= 3.5 Finger Breadths Mallampati Class: II Neck normal visual inspection Respiratory normal respiratory effort Auscultation: lungs clear to auscultation bilaterally Cardiovascular Rate/Rhythm: regular rate and regular rhythm Psychiatric Orientation: alert Testing Laboratory Results 03/26/20 07:00 03/26/20 07:00 PT 10.4 Seconds (9.0-12.0) 03/24/20 19:55 INR 1.0 (0.9-1.1) 03/24/20 19:55 APTT 25.1 Seconds (21.0-31.0) 03/24/20 19:55
[2020-03-26] MEDS: ONDANSETRON INJ 2 MG/ML 2 ML VIAL IV PRN (17:11)
[2020-03-26] MEDS: lamoTRIgine 100 MG TAB PO SCH (20:32)
[2020-03-26] MEDS: risperiDONE 0.5 MG TABLET PO SCH (20:34)
[2020-03-26] MEDS ORDERED: Nursing to Pharmacy Communication ONE (20:41)
[2020-03-27] MEDS: HYDROmorphone INJ 0.5 MG/0.5 ML SYR IV PRN ×2 (01:58→07:50)
[2020-03-27] MEDS: PIPERACILLIN/TAZOBACTAM 3.375 GM in DEXTROSE 5% 100 ML IV SCH ×3 (03:53→18:54)
[2020-03-27] MEDS: LACTATED RINGER'S 1,000 ML IV SCH ×2 (03:54→15:52)
[2020-03-27 06:25] LABS: Hematocrit (blood only) 30.9 % (37-47); Hemoglobin 9.7 g/dL (12.0-16.0); Mean Corpuscular Hemoglobin 24.9 pg (25-34); Mean Corpuscular Hgb Conc 31.4 g/dL (32-36); Mean Corpuscular Volume 79.2 fL (80-100); Mean Platelet Volume 10.3 fL (7.4-10.4); Platelet Count 225 K/uL (130-400); RDW Coefficient of Variation 16.3 % (11.5-14.5); White Blood Count 8.98 K/uL (4.8-10.8)
[2020-03-27 06:52] LABS: Albumin Level 2.4 gm/dl (3.4-5.0); BUN Creatinine Ratio 5.8 (10-20); Calcium 8.3 mg/dl (8.5-10.1); Creatinine Clr Calc Pharmacy 140.3 ml/min; Est GFR (African American) 140.2; Magnesium 1.9 mg/dl (1.8-2.4); Potassium 3.5 mmol/L (3.5-5.1)
[2020-03-27 06:56] LABS: Albumin Globulin Ratio 0.7 (0.9-2); Bilirubin Direct 0.2 mg/dl (0-0.2); Bilirubin,Total 0.6 mg/dl (0.2-1); Globulin 3.3 gm/dl (2.5-4.0); Phosphorus 1.9 mg/dl (2.5-4.9); Total Protein 5.7 gm/dl (6.4-8.2)
--- NOTE | 2020-03-27 07:32 | Surgery Progress Note ---
Date of Service March 27, 2020 Assessment & Plan (1) Cholecystitis: lipase normalizing for lap stacey today will likely need 1-2 addnl days in hospital adv diet post op Subjective resting comfortably- awakened Physical Exam Constitutional: no acute distress Respiratory: no respiratory distress Neurologic: awake Psychiatric: Orientation: alert Results & Data Vital Signs (Past 12 Hours) Vital Signs Temp Pulse Resp BP Pulse Ox 03/26/20 23:14 37.7 C H 107 H 24 112/78 92 PG Care Time/CCT Total # of Minutes Spent Total Time Spent with Patient: Total time spent is greater than 50% in coordination of care (as documented) at patient's floor/unit and/or counseling patient: Coding Level of Care Code None Diagnoses Cholecystitis K81.9
[2020-03-27] MEDS: ONDANSETRON INJ 2 MG/ML 2 ML VIAL IV PRN ×2 (07:50→17:43)
[2020-03-27] MEDS ORDERED: DEXAMETHASONE SOD INJ 4 MG/ML VIAL ONE ×2 (09:15→11:09)
[2020-03-27] MEDS ORDERED: fentaNYL citrate 100 MCG/2 ML VIAL ONE ×2 (09:15)
[2020-03-27] MEDS ORDERED: GLYCOPYRROLATE 0.2 MG/ML VIAL ONE ×2 (09:15→12:48)
[2020-03-27] MEDS ORDERED: NEOSTIGMINE METHYLSULFATE 5 MG/5 ML SYR ONE ×2 (09:15→12:48)
[2020-03-27] MEDS ORDERED: ROCURONIUM BROMIDE 10 MG/ML 5 ML VIAL ONE ×2 (09:15→11:09)
[2020-03-27] MEDS ORDERED: LIDOCAINE HCL 2% 2 ML VIAL/AMP(20MG/ML) INFIL ONE (09:15)
[2020-03-27] MEDS ORDERED: MIDAZOLAM HCL 1 MG/ML 2ML VIAL ONE (09:15)
[2020-03-27] MEDS ORDERED: PROPOFOL IV EMULSION 10 MG/ML 20 ML VIAL IV ONE (09:15)
[2020-03-27] MEDS ORDERED: SUCCINYLCHOLINE CHLORIDE 20 MG/ML 10 ML VIAL ONE (09:15)
[2020-03-27] MEDS ORDERED: ONDANSETRON INJ 2 MG/ML 2 ML VIAL ONE ×2 (09:15→12:48)
[2020-03-27] MEDS ORDERED: CISATRACURIUM BESYLATE IV SOLN 2 MG/ML 10 ML VIAL IV ONE (09:18)
[2020-03-27] MEDS: ACYCLOVIR 400 MG TAB PO SCH ×2 (10:10→20:29)
[2020-03-27] MEDS: PANTOprazole 40 MG in SYRINGE 0 ML IV SCH ×2 (10:10→20:30)
[2020-03-27] MEDS: SERTRALINE HCL 50 MG TABLET PO SCH ×2 (10:10→20:29)
[2020-03-27] MEDS ORDERED: POTASSIUM PHOS 3 MMOL/1 ML INFUSION IV STA (10:16)
--- NOTE | 2020-03-27 10:18 | Hospitalist Progress Note ---
Date of Service March 27, 2020 Assessment & Plan (1) Cholecystitis: (2) Acute pancreatitis: (3) Upper abdominal pain: 34-year-old female who presents with abdominal pain and found to have cholecystitis and pancreatitis 1. Cholecystitis so far looks like acalculous cholecystitis but the common bile duct is dilated on ultrasound, but there were no gallstones visualized - MRCP ordered, no choledocholithiasis, positive for duodenal diverticulum -LFTs are normal treated with bowel rest , IV fluid appreciate input from GI and surgery - plan for laparoscopic cholecystectomy today with surgery, Dr. Liriano (03/27/2020) 2. Pancreatitis, possibly from above. -Lipase above 14,000 on admission -treated with IV fluid, yesterday started on clear liquid diet, tolerated well -Pain control with IV Dilaudid p.r.n., n.p.o., - IV antiemetics. -Currently lipase down to 1000s GI recommend outpatient EUS in 4 to 6 weeks with [facility] provider for pancreatic duct dilatation, signed off 3. History of attention deficit disorder, anorexia nervosa, and depression. Continue her home medication of Brexpiprazole, Risperdal, Zoloft and Lamictal 5. Gastroesophageal reflux disease, IV Protonix for now. 6. History of herpes simplex type 1 infection. Continue acyclovir. 7. Allergic rhinitis, on Flonase. 8. Hypokalemia -Likely secondary to n.p.o. status and aggressive IV fluids -Replace and monitor DVT prophylaxis, SCDs. Dispo: home when medically stable Admission and Anticipated Discharge Date Admission Date: March 25, 2020 Subjective No acute events overnight. Patient is lying in bed, in no acute distress. Lipase trending down. Plan for lap cholecystectomy with surgery (Dr. Liriano) today. Patient reports chronic constipation, takes a stool softeners on a regular basis, last BM Tuesday. Denies any fevers, chills, chest pain, shortness of breath, abdominal pain, reports some mild nausea occasionally, no vomiting. Replace potassium phosphate. Review of Systems Review of Systems: All systems reviewed & are unremarkable except as noted in HPI & below Constitutional: no fever and no chills Respiratory: no cough and no dyspnea Cardiovascular: no chest pain and no palpitations Gastrointestinal: + abdominal pain (Diffuse, mostly epigastric), + nausea and + constipation; no vomiting Genitourinary: no dysuria Physical Exam Physical Exam: GENERAL: Young female lying in bed, in no acute distress HEENT: Normocephalic, atraumatic, pupils equal, round, reactive to light. Extraocular muscles intact. NECK: Supple, no neck masses seen. CARDIOVASCULAR: S1, S2 heard, regular rate and rhythm, no murmur, no gallop. RESPIRATORY SYSTEM: Normal AP diameter. No accessory muscle use. No wheezing, rhonchi, or crackles. ABDOMEN: Soft, bowel sounds sluggish. Tenderness to palpation mainly in the epigastric region. No distention. CENTRAL NERVOUS SYSTEM: Alert and oriented x 3, no facial asymmetry, speech fluent, cranial nerves II-XII grossly intact. Moves all 4 extremities spontaneously EXTREMITIES: No edema, no erythema. SKIN: Warm, dry, well perfused PSYCH: Euthymic affect Results & Data Results & Data ([facility]) Vital Signs (Past 12 Hours) Vital Signs Temp Pulse Resp BP Pulse Ox 03/27/20 07:49 37.1 C 90 16 119/74 94 03/26/20 23:14 37.7 C H 107 H 24 112/78 92 Laboratory Results 03/27/20 03/27/20 Range/Units 05:26 05:26 WBC 8.98 (4.8-10.8) K/uL RBC 3.90 L (4.2-5.4) M/uL Hgb 9.7 L (12.0-16.0) g/dL Hct 30.9 L (37-47) % MCV 79.2 L (80-100) fL MCH 24.9 L (25-34) pg MCHC 31.4 L (32-36) g/dL RDW Std Deviation 48.0 H (36.4-46.3) fL RDW Coeff of Poonam 16.3 H (11.5-14.5) % Plt Count 225 (130-400) K/uL MPV 10.3 (7.4-10.4) fL Sodium 140 (136-145) mmol/L Potassium 3.5 (3.5-5.1) mmol/L Chloride 108 H (98-107) mmol/L Carbon Dioxide 27 (21-32) mmol/L Anion Gap 5.0 (3-11) BUN 3 L (7-18) mg/dl Creatinine 0.57 L (0.6-1.2) mg/dl Est Cr Clr Drug Dosing 140.3 ml/min Est GFR ( Amer) 140.2 Est GFR (Non-Af Amer) 121.0 BUN/Creatinine Ratio 5.8 L (10-20) Glucose 97 (70-99) mg/dl Calcium 8.3 L (8.5-10.1) mg/dl Phosphorus 1.9 L (2.5-4.9) mg/dl Magnesium 1.9 (1.8-2.4) mg/dl Total Bilirubin 0.6 (0.2-1) mg/dl Direct Bilirubin 0.2 (0-0.2) mg/dl AST 24 (15-37) U/L ALT 33 (12-78) U/L Alkaline Phosphatase 62 (45-117) U/L Total Protein 5.7 L (6.4-8.2) gm/dl Albumin 2.4 L (3.4-5.0) gm/dl Globulin 3.3 (2.5-4.0) gm/dl Albumin/Globulin Ratio 0.7 L (0.9-2) Lipase 1066 H (73-393) U/L Medications Administered Current Inpatient Medications Acetaminophen (Tylenol) 650 mg PO Q4H PRN PRN Reason: pain/fever Stop: 04/24/20 02:14 Acyclovir (Zovirax) 400 mg PO BID [facility] Stop: 04/24/20 08:59 Last Admin: 03/27/20 10:10 Dose: 400 mg Documented by: Hydromorphone HCl (Dilaudid) 0.5 mg IV Q3H PRN PRN Reason: Pain Stop: 04/08/20 02:14 Last Admin: 03/27/20 07:50 Dose: 0.5 mg Documented by: Pantoprazole Sodium 40 mg/ (Syringe) 10 mls @ 5 mls/min IV BID [facility] Stop: 04/24/20 08:59 Last Admin: 03/27/20 10:10 Dose: 5 mls/min Documented by: Lactated Ringer's (Lr) 1,000 mls @ 125 mls/hr IV .Q8H [facility] Stop: 04/24/20 02:14 Last Admin: 03/27/20 03:54 Dose: 125 mls/hr Documented by: Piperacillin Sod/Tazobactam (Sod 3.375 gm/ Dextrose) 115 mls @ 28.75 mls/hr IV Q8H [facility]; Protocol Stop: 04/04/20 02:59 Last Infusion: 03/27/20 08:01 Dose: Infused Documented by: Prochlorperazine 10 mg/ (Syringe) 10 mls @ 5 mls/min IV Q6 PRN PRN Reason: Nausea And Vomiting Stop: 04/24/20 10:19 Last Admin: 03/26/20 21:31 Dose: 5 mls/min Documented by: Lamotrigine (Lamictal) 150 mg PO HS [facility] Stop: 04/24/20 20:59 Last Admin: 03/26/20 20:32 Dose: 150 mg Documented by: Miscellaneous (Order Awaiting Action) 1 ea N/A QS [facility] Stop: 04/24/20 07:59 Last Admin: 03/27/20 08:06 Dose: Not Given Documented by: Miscellaneous Information (Consult) 1 ea N/A UD PRN PRN Reason: Consult Stop: 04/24/20 02:14 Ondansetron HCl (Zofran) 4 mg IV Q4H PRN PRN Reason: Nausea Stop: 04/24/20 02:14 Last Admin: 03/27/20 07:50 Dose: 4 mg Documented by: Potassium Phosphate (Potassium Phosphate Replace) 21 mmol IV NOW STA Stop: 03/27/20 10:17 Risperidone (Risperdal) 0.75 mg PO HS [facility] Stop: 04/24/20 20:59 Last Admin: 03/26/20 20:34 Dose: 0.75 mg Documented by: Sertraline HCl (Zoloft) 150 mg PO DAILY [facility] Stop: 04/24/20 08:59 Last Admin: 03/27/20 10:10 Dose: Not Given Documented by: (1) Acute pancreatitis Acute pancreatitis complication: unspecified Pancreatitis type: unspecified pancreatitis type Qualified Code(s): K85.90 - Acute pancreatitis without necrosis or infection, unspecified
[2020-03-27] MEDS ORDERED: POTASSIUM PHOSPHATE 21 MMOL in SODIUM CHLORIDE 0.9% 500 ML IV ONE (11:00)
[2020-03-27] MEDS ORDERED: BUPIVACAINE 0.5 % 5 MG/1 ML MPF 30ML VIAL ONE (11:02)
[2020-03-27] MEDS ORDERED: ATROPINE SULFATE 0.1 MG/ML 10ML SYR IV PRN (12:15)
[2020-03-27] MEDS ORDERED: ePHEDrine sulfate 50 MG/ML AMP IV PRN (12:15)
[2020-03-27] MEDS ORDERED: ONDANSETRON INJ 2 MG/ML 2 ML VIAL IV PRN ×2 (12:15→14:47)
[2020-03-27] MEDS ORDERED: HYDROmorphone INJ 1 MG/ML SYRINGE IV PRN (12:15)
[2020-03-27] MEDS ORDERED: FLUMAZENIL 0.1 MG/1 ML 10 ML VIAL IV PRN (12:15)
[2020-03-27] MEDS ORDERED: NALOXONE HCL 0.4 MG/1 ML VIAL/CARP IV PRN (12:15)
[2020-03-27] MEDS ORDERED: fentaNYL citrate 100 MCG/2 ML VIAL IV PRN (12:15)
--- NOTE | 2020-03-27 13:26 | Post Operative Brief Note ---
PG Immediate Post Op with CF Date of Surgery March 27, 2020 Pre & Post Diagnosis Operation Date: 03/27/20 11:20 Pre-Op Diagnosis: Acute cholecystitis, pancreatitis Post-Op Diagnosis: Acute cholecystitis, pancreatitis, ascites I identified the patient and participated in the time-out.: Yes Procedure Operation Date: 03/27/20 11:20 Actual Procedures p Laparoscopic Cholecystectomy(Not Applicable) - Jose Liriano MD, FACS Surgeon Jose Liriano MD, FACS Dip Painter Nurses Estimated Blood Loss 10 Findings Consistent with Post-Op Diagnosis Specimens Specimen Description: A. Gallbladder and contents Drains Henry-Nuno Drain (15 Fr Round DEVORAH)
[2020-03-27] MEDS ORDERED: ACETAMINOPHEN 1,000 MG/100 ML VIAL IV ONE (13:28)
[2020-03-27] MEDS ORDERED: HYDROmorphone INJ 2 MG/ML SYR/VIAL ONE (13:37)
--- NOTE | 2020-03-27 14:01 | Operative Report (OR) ---
DATE OF OPERATION: 03/27/2020 NAME OF OPERATION: Laparoscopic cholecystectomy. POSTOPERATIVE DIAGNOSES: Acute cholecystitis and pancreatitis. POSTOPERATIVE DIAGNOSES: Acute cholecystitis and pancreatitis with ascites. STAFF SURGEON: Jose Liriano MD. ANESTHESIA: General. DESCRIPTION OF PROCEDURE: The patient was brought in the operating room and placed on the operating table in supine position. Her abdomen was prepped and draped in usual fashion. Orogastric tube and pneumatic stockings were placed. 0.5% plain Marcaine was used to anesthetize all incisions. Incision was made above the umbilicus, carrying dissection down to the fascia, placing a Veress needle producing pneumoperitoneum. An 11 mm port placed at this level and then under visualization, three 5 mm ports were placed, 1 cephalad and 2 laterally. The patient did have some cloudy fluid in the abdomen consistent with ascites, possibly from the pancreatitis and the acute cholecystitis. Her gallbladder was severely distended and edematous. Gallbladder was grasped and retracted. It was then aspirated of bile. Dissection was carried out to the rachel hepatis, identifying the cystic duct and cystic artery. These were clipped and transected, and the gallbladder was dissected away from the liver bed in the usual fashion. There was severe edema and chronic inflammation in the posterior wall. At this point, gallbladder was placed in an Endobag. I did aspirate and irrigate some of the ascites. We placed a #15 round Henry-Nuno drain through the lateral 5 mm port site into the subhepatic space, secured using 3-0 nylon suture. At this point, the pneumoperitoneum was reduced. All ports were removed and the gallbladder was removed through the umbilical site. The umbilical fascia was closed using interrupted 0 Vicryl suture. Skin was reapproximated using subcuticular 4-0 Monocryl with Dermabond. The patient was transferred to recovery room in stable condition. I attest to the content of the Intraoperative Record and any orders documented therein. Any exception s are noted below.
--- NOTE | 2020-03-27 14:28 | Anesthesiology Progress Note ---
Date of Service March 27, 2020 Anesthesia Post Procedure Vital Signs Vital Signs: Temp Pulse Pulse Resp BP Pulse Ox 03/27/20 14:15 103 H 16 115/79 98 03/27/20 14:05 104 H 18 119/73 97 03/27/20 13:56 36.7 C 89 14 120/78 100 03/27/20 11:30 37.1 C 82 18 121/81 98 03/27/20 11:15 37.5 C 84 18 122/82 96 03/27/20 07:49 37.1 C 90 16 119/74 94 03/26/20 23:14 37.7 C H 107 H 24 112/78 92 03/26/20 15:06 37.0 C 101 H 16 118/74 95 Pain Intensity Chest: Pain Intensity: 7 Abdomen: Pain Intensity: 3 Transfer of Care Handoff Completed per policy Notes Mental Status: alert / awake / arousable Patient Amnestic to Procedure: Yes Nausea / Vomiting: adequately controlled Pain: adequately controlled Airway Patency, RR, SpO2: stable & adequate BP & HR: stable & adequate Hydration State: stable & adequate Anesthetic Complications: no major complications apparent
[2020-03-27] MEDS ORDERED: LORazepam 0.5 MG/1 ML VIAL IV PRN (14:47)
[2020-03-27] MEDS ORDERED: HYDROmorphone INJ 0.5 MG/0.5 ML SYR IV PRN (14:47)
[2020-03-27] MEDS ORDERED: Nursing to Pharmacy Communication ONE (15:34)
[2020-03-27] MEDS: HYDROCODONE/ACETAMOPHEN 5/325MG TAB PO PRN ×2 (17:02→21:44)
[2020-03-27] MEDS: SODIUM CHLORIDE 0.9% 1000ML 1,000 ML IV SCH ×2 (17:12→23:13)
[2020-03-27] MEDS: risperiDONE 0.5 MG TABLET PO SCH (20:27)
[2020-03-27] MEDS: lamoTRIgine 100 MG TAB PO SCH (20:28)
[2020-03-27] MEDS: POLYETHYLENE (MIRALAX) 17 GM PACK PO PRN (21:52)
[2020-03-27] MEDS ORDERED: SODIUM CHLORIDE 0.65% NA SOLN 45 ML (OCEAN) ONE (22:50)
[2020-03-28] MEDS: ONDANSETRON INJ 2 MG/ML 2 ML VIAL IV PRN ×2 (02:55→19:56)
[2020-03-28] MEDS: HYDROCODONE/ACETAMOPHEN 5/325MG TAB PO PRN ×4 (02:55→21:33)
[2020-03-28] MEDS: PIPERACILLIN/TAZOBACTAM 3.375 GM in DEXTROSE 5% 100 ML IV SCH ×3 (03:57→18:46)
[2020-03-28 06:10] LABS: Basophils # (auto) 0.01 K/uL (0-0.2); Basophils % (auto) 0.1 %; Hematocrit (blood only) 29.5 % (37-47); Hemoglobin 9.4 g/dL (12.0-16.0); Immature Granulocytes # (auto) 0.01 K/uL (0.00-0.02); Immature Granulocytes % (auto) 0.1 %; Lymphocytes # (auto) 0.65 K/uL (1.2-3.4); Mean Corpuscular Hemoglobin 25.1 pg (25-34); Mean Corpuscular Hgb Conc 31.9 g/dL (32-36); Mean Corpuscular Volume 78.7 fL (80-100); Mean Platelet Volume 10.2 fL (7.4-10.4); Monocytes # (auto) 0.61 K/uL (0.11-0.59); Monocytes % (auto) 8.5 %; Neutrophils # (auto) 5.93 K/uL (1.4-6.5); Neutrophils % (auto) 82.3 %; Platelet Count 205 K/uL (130-400); RDW Coefficient of Variation 16.3 % (11.5-14.5); RDW Standard Deviation 47.3 fL (36.4-46.3); Red Blood Count 3.75 M/uL (4.2-5.4); White Blood Count 7.21 K/uL (4.8-10.8)
[2020-03-28 06:42] LABS: Alanine Aminotransferase 50 U/L (12-78); Albumin Level 2.4 gm/dl (3.4-5.0); Aspartate Aminotransferase 46 U/L (15-37); BUN Creatinine Ratio 9.2 (10-20); Blood Urea Nitrogen 4 mg/dl (7-18); Calcium 8.1 mg/dl (8.5-10.1); Carbon Dioxide 26 mmol/L (21-32); Chloride 111 mmol/L (98-107); Creatinine Clr Calc Pharmacy 177.7 ml/min; Est GFR (African American) > 150.0; Est GFR (Non-African American) 130.7; Glucose 117 mg/dl (70-99); Lipase 188 U/L (73-393); Magnesium 2.1 mg/dl (1.8-2.4); Potassium 3.8 mmol/L (3.5-5.1); Sodium 143 mmol/L (136-145)
[2020-03-28 06:52] LABS: Albumin Globulin Ratio 0.7 (0.9-2); Alkaline Phosphatase 77 U/L (45-117); Bilirubin Direct 0.1 mg/dl (0-0.2); Bilirubin,Total 0.4 mg/dl (0.2-1); Globulin 3.3 gm/dl (2.5-4.0); Phosphorus 2.6 mg/dl (2.5-4.9); Total Protein 5.7 gm/dl (6.4-8.2)
--- NOTE | 2020-03-28 07:05 | Surgery Progress Note ---
Date of Service March 28, 2020 Assessment & Plan (1) Cholecystitis: acute cholecystitis and acute pancreatitis had significant ascites from pancreatitis mostly- will d/c home with drain she wants more food- low fat diet ordered decrease IV, probable d/c tomorrow on po atbx, po pain med Results & Data Vital Signs (Past 12 Hours) Vital Signs Temp Pulse Resp BP Pulse Ox 03/28/20 03:52 36.5 C 57 L 18 108/71 95 03/27/20 22:56 36.4 C L 67 20 121/79 99 03/27/20 21:40 36.6 C 72 16 110/76 96 PG Care Time/CCT Total # of Minutes Spent Total Time Spent with Patient: Total time spent is greater than 50% in coordination of care (as documented) at patient's floor/unit and/or counseling patient: Coding Diagnoses Cholecystitis K81.9
--- NOTE | 2020-03-28 08:01 | Hospitalist Progress Note ---
Date of Service March 28, 2020 Assessment & Plan (1) Cholecystitis: (2) Acute pancreatitis: (3) Upper abdominal pain: 34-year-old female who presents with abdominal pain and found to have acute cholecystitis and pancreatitis 1. Cholecystitis - seemingly acalculous cholecystitis but the common bile duct dilated on ultrasound, but there were no gallstones visualized - MRCP ordered, no choledocholithiasis, positive for duodenal diverticulum -LFTs normal - treated with bowel rest , IV fluid, Abx - IV zosyn Surgery consulted - pt is now s/p laparoscopic cholecystectomy with Dr. Liriano (03/27/2020) - pt tolerated procedure well - noted ascites during surgery (likely d/t pancreatitis), drain placed, plan to d/c with drain and on Abx 2. Pancreatitis, possibly from above. -Lipase above 14,000 on admission -treated with IV fluid, bowel rest, initially -Pain control with IV Dilaudid p.r.n., n.p.o., - IV antiemetics -Currently lipase down to 188, normalized -underwent lap stacey yesterday - tolerating PO diet, advanced to low fat diet today GI recommends outpatient EUS in 4 to 6 weeks with [facility] provider for pancreatic duct dilatation, signed off 3. History of attention deficit disorder, anorexia nervosa, and depression. Continue her home medication of Brexpiprazole, Risperdal, Zoloft and Lamictal 5. Gastroesophageal reflux disease, IV Protonix for now. 6. History of herpes simplex type 1 infection. Continue acyclovir. 7. Allergic rhinitis, on Flonase. 8. Hypokalemia -Likely secondary to n.p.o. status and aggressive IV fluids -Replace and monitor DVT prophylaxis, SCDs. Dispo: home when medically stable Admission and Anticipated Discharge Date Admission Date: March 25, 2020 Subjective Pt is s/p laparoscopic cholecystectomy with Dr. Liriano, yesterday. Tolerated procedure well. No acute events overnight. Patient is lying in bed, in no acute distress. States that she feels much better, however cont. to complain of constipation. Lipase level normalized. Denies any fevers, chills, chest pain, shortness of breath, tolerates PO, advanced to low fat. Review of Systems Review of Systems: All systems reviewed & are unremarkable except as noted in HPI & below Constitutional: no fever and no chills Respiratory: no cough and no dyspnea Cardiovascular: no chest pain and no palpitations Gastrointestinal: + abdominal pain (mild diffuse) and + constipation; no nausea and no vomiting Genitourinary: no dysuria Physical Exam Physical Exam: GENERAL: Young female lying in bed, in no acute distress HEENT: Normocephalic, atraumatic, PERRL. EOMI. NECK: Supple CARDIOVASCULAR: S1, S2 heard, regular rate and rhythm, no murmur, no gallop. RESPIRATORY: No accessory muscle use. CTAB, no wheezing, rhonchi, or crackles. ABDOMEN: abdomen soft, bowel sounds sluggish. Mild diffuse tenderness to palpation. Small incisions s/p surgery, no erythema, edema noted. Drain placed d/t ascites noted during surgery, small amount of serous drainage noted. NEURO: Alert and oriented x 3, no facial asymmetry, speech fluent, moves all extremities spontaneously EXTREMITIES: No edema, no erythema. SKIN: Warm, dry, well perfused PSYCH: Euthymic affect Results & Data Results & Data ([facility]) Vital Signs (Past 12 Hours) Vital Signs Temp Pulse Resp BP Pulse Ox 03/28/20 07:30 36.7 C 54 L 18 110/71 97 03/28/20 03:52 36.5 C 57 L 18 108/71 95 03/27/20 22:56 36.4 C L 67 20 121/79 99 03/27/20 21:40 36.6 C 72 16 110/76 96 Laboratory Results 03/28/20 03/28/20 Range/Units 05:25 05:25 WBC 7.21 (4.8-10.8) K/uL RBC 3.75 L (4.2-5.4) M/uL Hgb 9.4 L (12.0-16.0) g/dL Hct 29.5 L (37-47) % MCV 78.7 L (80-100) fL MCH 25.1 (25-34) pg MCHC 31.9 L (32-36) g/dL RDW Std Deviation 47.3 H (36.4-46.3) fL RDW Coeff of Poonam 16.3 H (11.5-14.5) % Plt Count 205 (130-400) K/uL MPV 10.2 (7.4-10.4) fL Immature Gran % (Auto) 0.1 % Neut % (Auto) 82.3 % Lymph % (Auto) 9.0 % [place] % (Auto) 8.5 % Eos % (Auto) 0.0 % Baso % (Auto) 0.1 % Immature Gran # (Auto) 0.01 (0.00-0.02) K/uL Neut # (Auto) 5.93 (1.4-6.5) K/uL Lymph # (Auto) 0.65 L (1.2-3.4) K/uL [place] # (Auto) 0.61 H (0.11-0.59) K/uL Eos # (Auto) 0.00 (0-0.5) K/uL Baso # (Auto) 0.01 (0-0.2) K/uL Sodium 143 (136-145) mmol/L Potassium 3.8 (3.5-5.1) mmol/L Chloride 111 H (98-107) mmol/L Carbon Dioxide 26 (21-32) mmol/L Anion Gap 6.0 (3-11) BUN 4 L (7-18) mg/dl Creatinine 0.45 L (0.6-1.2) mg/dl Est Cr Clr Drug Dosing 177.7 ml/min Est GFR ( Amer) > 150.0 Est GFR (Non-Af Amer) 130.7 BUN/Creatinine Ratio 9.2 L (10-20) Glucose 117 H (70-99) mg/dl Calcium 8.1 L (8.5-10.1) mg/dl Phosphorus 2.6 (2.5-4.9) mg/dl Magnesium 2.1 (1.8-2.4) mg/dl Total Bilirubin 0.4 (0.2-1) mg/dl Direct Bilirubin 0.1 (0-0.2) mg/dl AST 46 H (15-37) U/L ALT 50 (12-78) U/L Alkaline Phosphatase 77 (45-117) U/L Total Protein 5.7 L (6.4-8.2) gm/dl Albumin 2.4 L (3.4-5.0) gm/dl Globulin 3.3 (2.5-4.0) gm/dl Albumin/Globulin Ratio 0.7 L (0.9-2) Lipase 188 (73-393) U/L Medications Administered Current Inpatient Medications Acetaminophen (Tylenol) 650 mg PO Q4H PRN PRN Reason: pain/fever Stop: 04/24/20 02:14 Hydrocodone Bitart/Acetaminophen ([place] 5/325) 1 tab PO Q4HWA PRN PRN Reason: Pain Stop: 04/10/20 14:46 Hydrocodone Bitart/Acetaminophen ([place] 5/325) 2 tab PO Q4HWA PRN PRN Reason: Pain Stop: 04/10/20 14:46 Last Admin: 03/28/20 02:55 Dose: 2 tab Documented by: Acyclovir (Zovirax) 400 mg PO BID ELVA Stop: 04/24/20 08:59 Last Admin: 03/27/20 20:29 Dose: 400 mg Documented by: Diphenhydramine HCl (Benadryl Capsule) 25 mg PO Q4H PRN PRN Reason: Itching Stop: 04/26/20 16:20 Last Admin: 03/27/20 17:02 Dose: 25 mg Documented by: Heparin Sodium (Porcine) (Heparin Sodium (Porcine)) 5,000 units SQ Q12 ELVA Stop: 04/27/20 08:59 Hydromorphone HCl (Dilaudid) 0.5 mg IV Q3HWA PRN PRN Reason: Pain Stop: 04/10/20 14:46 Pantoprazole Sodium 40 mg/ (Syringe) 10 mls @ 5 mls/min IV BID ELVA Stop: 04/24/20 08:59 Last Admin: 03/27/20 20:30 Dose: 5 mls/min Documented by: Piperacillin Sod/Tazobactam (Sod 3.375 gm/ Dextrose) 115 mls @ 28.75 mls/hr IV Q8H [facility]; Protocol Stop: 04/04/20 02:59 Last Infusion: 03/28/20 07:53 Dose: Infused Documented by: Prochlorperazine 10 mg/ (Syringe) 10 mls @ 5 mls/min IV Q6 PRN PRN Reason: Nausea And Vomiting Stop: 04/24/20 10:19 Last Admin: 03/26/20 21:31 Dose: 5 mls/min Documented by: Lorazepam (Ativan) 0.5 mg in 1 mls @ 1 mls/min IV Q6 PRN PRN Reason: Anxiety Stop: 04/26/20 14:46 Sodium Chloride (Nss 1000ml) 1,000 mls @ 50 mls/hr IV .Q20H ELVA Stop: 04/26/20 14:46 Last Infusion: 03/28/20 07:28 Dose: 50 mls/hr Documented by: Lamotrigine (Lamictal) 150 mg PO HS [facility] Stop: 04/24/20 20:59 Last Admin: 03/27/20 20:28 Dose: 150 mg Documented by: Miscellaneous (Order Awaiting Action) 1 ea N/A QS ELVA Stop: 04/24/20 07:59 Last Admin: 03/28/20 07:52 Dose: Not Given Documented by: Miscellaneous Information (Consult) 1 ea N/A UD PRN PRN Reason: Consult Stop: 04/24/20 02:14 Ondansetron HCl (Zofran) 4 mg IV Q4H PRN PRN Reason: Nausea Stop: 04/24/20 02:14 Last Admin: 03/28/20 02:55 Dose: 4 mg Documented by: Ondansetron HCl (Zofran) 4 mg IV 4XDQ4H PRN PRN Reason: Nausea Stop: 04/26/20 14:46 Polyethylene Glycol (Miralax Powder Packet) 17 gm PO BID PRN PRN Reason: Constipation Stop: 04/26/20 11:20 Last Admin: 03/27/20 21:52 Dose: 17 gm Documented by: Risperidone (Risperdal) 0.75 mg PO [facility] Stop: 04/24/20 20:59 Last Admin: 03/27/20 20:27 Dose: 0.75 mg Documented by: Sertraline HCl (Zoloft) 150 mg PO DAILY@2100 [facility] Stop: 04/26/20 20:59 Last Admin: 03/27/20 20:29 Dose: 150 mg Documented by: (1) Acute pancreatitis Acute pancreatitis complication: unspecified Pancreatitis type: unspecified pancreatitis type Qualified Code(s): K85.90 - Acute pancreatitis without necrosis or infection, unspecified
--- NOTE | 2020-03-28 08:19 | Anesthesiology Progress Note ---
Date of Service March 28, 2020 Anesthesia Post Procedure Vital Signs Vital Signs: Temp Pulse Pulse Resp BP Pulse Ox 03/28/20 07:30 36.7 C 54 L 18 110/71 97 03/28/20 03:52 36.5 C 57 L 18 108/71 95 03/27/20 22:56 36.4 C L 67 20 121/79 99 03/27/20 21:40 36.6 C 72 16 110/76 96 03/27/20 17:46 36.5 C 82 16 114/75 98 03/27/20 16:43 36.6 C 76 16 111/74 94 03/27/20 15:43 36.2 C L 65 16 113/79 93 03/27/20 15:13 36.5 C 103 H 16 111/76 95 03/27/20 14:49 37.1 C 71 71 16 107/72 94 03/27/20 14:35 36.7 C 80 16 115/66 97 03/27/20 14:25 70 12 116/72 96 03/27/20 14:15 103 H 16 115/79 98 03/27/20 14:05 104 H 18 119/73 97 03/27/20 13:56 36.7 C 89 14 120/78 100 03/27/20 11:30 37.1 C 82 18 121/81 98 03/27/20 11:15 37.5 C 84 18 122/82 96 Pain Intensity Chest: Pain Intensity: 7 Abdomen: Pain Intensity: 3 Notes Mental Status: alert / awake / arousable and participated in evaluation Nausea / Vomiting: adequately controlled Pain: adequately controlled Airway Patency, RR, SpO2: stable & adequate BP & HR: stable & adequate Hydration State: stable & adequate
[2020-03-28] MEDS: ACYCLOVIR 400 MG TAB PO SCH ×2 (08:29→19:46)
[2020-03-28] MEDS: HEPARIN SOD 5,000 UNIT/0.5 ML VIAL SQ SCH ×2 (08:29→19:44)
[2020-03-28] MEDS: PANTOprazole 40 MG in SYRINGE 0 ML IV SCH ×2 (09:07→19:44)
[2020-03-28] MEDS: POLYETHYLENE (MIRALAX) 17 GM PACK PO PRN ×2 (10:06→19:56)
[2020-03-28] MEDS: SODIUM CHLORIDE 0.9% 1000ML 1,000 ML IV SCH (13:51)
[2020-03-28] MEDS: risperiDONE 0.5 MG TABLET PO SCH (19:45)
[2020-03-28] MEDS: SERTRALINE HCL 50 MG TABLET PO SCH (19:45)
[2020-03-28] MEDS: lamoTRIgine 100 MG TAB PO SCH (19:45)
[2020-03-29] MEDS: HYDROCODONE/ACETAMOPHEN 5/325MG TAB PO PRN ×2 (02:43→08:17)
[2020-03-29] MEDS: PIPERACILLIN/TAZOBACTAM 3.375 GM in DEXTROSE 5% 100 ML IV SCH (02:45)
[2020-03-29] MEDS: ONDANSETRON INJ 2 MG/ML 2 ML VIAL IV PRN ×3 (02:45→08:16)
--- NOTE | 2020-03-29 08:02 | Hospitalist Progress Note ---
Date of Service March 29, 2020 Assessment & Plan (1) Cholecystitis: (2) Acute pancreatitis: (3) Upper abdominal pain: 34-year-old female who presented with abdominal pain and found to have acute cholecystitis and pancreatitis 1. Cholecystitis - seemingly acalculous cholecystitis but the common bile duct dilated on ultrasound, but there were no gallstones visualized - MRCP ordered, no choledocholithiasis, positive for duodenal diverticulum - LFTs normal - treated with bowel rest , IV fluid, Abx - IV zosyn Surgery consulted - pt is now s/p laparoscopic cholecystectomy with Dr. Liriano (03/27/2020) - pt tolerated procedure well - noted ascites during surgery (likely d/t pancreatitis), drain placed, plan to d/c with drain and on Abx -Augmentin was sent to her pharmacy 2. Pancreatitis, possibly from above. -Lipase above 14,000 on admission -treated with IV fluid, bowel rest, initially -Pain control with IV Dilaudid p.r.n., n.p.o., - IV antiemetics -Currently lipase normalized -underwent lap stacey on 03/27 - tolerating PO diet (low fat diet) GI recommends outpatient EUS in 4 to 6 weeks with [facility] provider for pancreatic duct dilatation, signed off 3. Anemia -Likely secondary to aggressive IV fluids and some acute blood loss/postsurgical expected anemia -Current hemoglobin 9.8, stable 4. History of attention deficit disorder, anorexia nervosa, and depression. Continue her home medication of Brexpiprazole, Risperdal, Zoloft and Lamictal 5. Gastroesophageal reflux disease, IV Protonix. 6. History of herpes simplex type 1 infection. Continue acyclovir. 7. Allergic rhinitis, on Flonase. 8. Hypokalemia -Likely secondary to n.p.o. status initially and aggressive IV fluids -Replace and monitor DVT prophylaxis, SCDs. Dispo: home today Follow-up with surgery. Pt will be discharged with drain. Antibiotic sent to her pharmacy. Admission and Anticipated Discharge Date Admission Date: March 25, 2020 Subjective No acute events overnight. Patient is sitting up in bed in no acute distress. States she had some abdominal pain at night, currently feels well, denies any nausea, fevers or chills. She is voiding urine without difficulty, however states that she did not have a bowel movement yet. She is currently drinking MiraLAX, and says that she feels like she will have a bowel movement. She is passing flatus. Pt is s/p laparoscopic cholecystectomy with Dr. Liriano - POD#2. Seen by surgery this morning, okay for discharge. Review of Systems Review of Systems: All systems reviewed & are unremarkable except as noted in HPI & below Constitutional: no fever and no chills Respiratory: no cough and no dyspnea Cardiovascular: no chest pain and no palpitations Gastrointestinal: + abdominal pain (mild diffuse/ much improved) and + constipation; no nausea and no vomiting + Passing flatus Genitourinary: no dysuria Physical Exam Physical Exam: GENERAL: Young female lying in bed, in no acute distress HEENT: Normocephalic, atraumatic, PERRL. EOMI. NECK: Supple CARDIOVASCULAR: S1, S2 heard, regular rate and rhythm, no murmur, no gallop. RESPIRATORY: No accessory muscle use. CTAB, no wheezing, rhonchi, or crackles. ABDOMEN: abdomen soft, bowel sounds sluggish. Mild diffuse tenderness to palpation. Small incisions s/p surgery, no erythema, edema noted. Drain placed d/t ascites noted during surgery, small amount of serous drainage noted. NEURO: Alert and oriented x 3, no facial asymmetry, speech fluent, moves all extremities spontaneously EXTREMITIES: No edema, no erythema. SKIN: Warm, dry, well perfused PSYCH: Euthymic affect Results & Data Results & Data ([facility]) Vital Signs (Past 12 Hours) Vital Signs Temp Pulse Resp BP Pulse Ox 03/29/20 07:53 36.9 C 73 16 130/88 98 03/28/20 23:32 37.0 C 80 16 106/68 94 Laboratory Results 03/29/20 03/29/20 Range/Units 08:17 08:17 WBC 7.89 (4.8-10.8) K/uL RBC 3.95 L (4.2-5.4) M/uL Hgb 9.8 L (12.0-16.0) g/dL Hct 30.9 L (37-47) % MCV 78.2 L (80-100) fL MCH 24.8 L (25-34) pg MCHC 31.7 L (32-36) g/dL RDW Std Deviation 47.1 H (36.4-46.3) fL RDW Coeff of [place]am 16.2 H (11.5-14.5) % Plt Count 251 (130-400) K/uL MPV 9.4 (7.4-10.4) fL Sodium 141 (136-145) mmol/L Potassium 3.4 L (3.5-5.1) mmol/L Chloride 108 H (98-107) mmol/L Carbon Dioxide 27 (21-32) mmol/L Anion Gap 6.0 (3-11) BUN 4 L (7-18) mg/dl Creatinine 0.65 (0.6-1.2) mg/dl Est Cr Clr Drug Dosing 123.0 ml/min Est GFR ( Amer) 134.3 Est GFR (Non-Af Amer) 115.8 BUN/Creatinine Ratio 6.3 L (10-20) Glucose 94 (70-99) mg/dl Calcium 8.4 L (8.5-10.1) mg/dl Phosphorus 2.6 (2.5-4.9) mg/dl Magnesium 1.8 (1.8-2.4) mg/dl Lipase 222 (73-393) U/L Medications Administered Current Inpatient Medications Acetaminophen (Tylenol) 650 mg PO Q4H PRN PRN Reason: pain/fever Stop: 04/24/20 02:14 Hydrocodone Bitart/Acetaminophen ([place] 5/325) 1 tab PO Q4HWA PRN PRN Reason: Pain Stop: 04/10/20 14:46 Last Admin: 03/28/20 21:33 Dose: 1 tab Documented by: Hydrocodone Bitart/Acetaminophen ([place] 5/325) 2 tab PO Q4HWA PRN PRN Reason: Pain Stop: 04/10/20 14:46 Last Admin: 03/29/20 08:17 Dose: 2 tab Documented by: Acyclovir (Zovirax) 400 mg PO BID [facility] Stop: 04/24/20 08:59 Last Admin: 03/29/20 08:17 Dose: 400 mg Documented by: Diphenhydramine HCl (Benadryl Capsule) 25 mg PO Q4H PRN PRN Reason: Itching Stop: 04/26/20 16:20 Last Admin: 03/27/20 17:02 Dose: 25 mg Documented by: Heparin Sodium (Porcine) (Heparin Sodium (Porcine)) 5,000 units SQ Q12 [facility] Stop: 04/27/20 08:59 Last Admin: 03/29/20 10:16 Dose: 5,000 units Documented by: Hydromorphone HCl (Dilaudid) 0.5 mg IV Q3HWA PRN PRN Reason: Pain Stop: 04/10/20 14:46 Pantoprazole Sodium 40 mg/ (Syringe) 10 mls @ 5 mls/min IV BID [facility] Stop: 04/24/20 08:59 Last Admin: 03/29/20 08:16 Dose: 5 mls/min Documented by: Piperacillin Sod/Tazobactam (Sod 3.375 gm/ Dextrose) 115 mls @ 28.75 mls/hr IV Q8H [facility]; Protocol Stop: 04/04/20 02:59 Last Infusion: 03/29/20 06:32 Dose: Infused Documented by: Prochlorperazine 10 mg/ (Syringe) 10 mls @ 5 mls/min IV Q6 PRN PRN Reason: Nausea And Vomiting Stop: 04/24/20 10:19 Last Admin: 03/26/20 21:31 Dose: 5 mls/min Documented by: Lorazepam (Ativan) 0.5 mg in 1 mls @ 1 mls/min IV Q6 PRN PRN Reason: Anxiety Stop: 04/26/20 14:46 Sodium Chloride (Nss 1000ml) 1,000 mls @ 50 mls/hr IV .Q20H [facility] Stop: 04/26/20 14:46 Last Infusion: 03/29/20 10:13 Dose: Infused Documented by: Lamotrigine (Lamictal) 150 mg PO HS [facility] Stop: 04/24/20 20:59 Last Admin: 03/28/20 19:45 Dose: 150 mg Documented by: Miscellaneous (Order Awaiting Action) 1 ea N/A QS [facility]VA Stop: 04/24/20 07:59 Last Admin: 03/29/20 08:13 Dose: Not Given Documented by: Miscellaneous Information (Consult) 1 ea N/A UD PRN PRN Reason: Consult Stop: 04/24/20 02:14 Ondansetron HCl (Zofran) 4 mg IV Q4H PRN PRN Reason: Nausea Stop: 04/24/20 02:14 Last Admin: 03/29/20 08:16 Dose: 4 mg Documented by: Ondansetron HCl (Zofran) 4 mg IV 4XDQ4H PRN PRN Reason: Nausea Stop: 04/26/20 14:46 Polyethylene Glycol (Miralax Powder Packet) 17 gm PO BID PRN PRN Reason: Constipation Stop: 04/26/20 11:20 Last Admin: 03/29/20 10:14 Dose: 17 gm Documented by: Risperidone (Risperdal) 0.75 mg PO HS [facility]VA Stop: 04/24/20 20:59 Last Admin: 03/28/20 19:45 Dose: 0.75 mg Documented by: Sertraline HCl (Zoloft) 150 mg PO DAILY@2100 [facility] Stop: 04/26/20 20:59 Last Admin: 03/28/20 19:45 Dose: 150 mg Documented by: (1) Acute pancreatitis Acute pancreatitis complication: unspecified Pancreatitis type: unspecified pancreatitis type Qualified Code(s): K85.90 - Acute pancreatitis without necrosis or infection, unspecified
[2020-03-29] MEDS: PANTOprazole 40 MG in SYRINGE 0 ML IV SCH (08:16)
[2020-03-29] MEDS: ACYCLOVIR 400 MG TAB PO SCH (08:17)
[2020-03-29 08:34] LABS: Hematocrit (blood only) 30.9 % (37-47); Hemoglobin 9.8 g/dL (12.0-16.0); Mean Corpuscular Hemoglobin 24.8 pg (25-34); Mean Corpuscular Hgb Conc 31.7 g/dL (32-36); Mean Corpuscular Volume 78.2 fL (80-100); Mean Platelet Volume 9.4 fL (7.4-10.4); Platelet Count 251 K/uL (130-400); RDW Coefficient of Variation 16.2 % (11.5-14.5); RDW Standard Deviation 47.1 fL (36.4-46.3); Red Blood Count 3.95 M/uL (4.2-5.4); White Blood Count 7.89 K/uL (4.8-10.8)
[2020-03-29 08:45] LABS: BUN Creatinine Ratio 6.3 (10-20); Calcium 8.4 mg/dl (8.5-10.1); Est GFR (African American) 134.3; Est GFR (Non-African American) 115.8; Magnesium 1.8 mg/dl (1.8-2.4); Phosphorus 2.6 mg/dl (2.5-4.9); Potassium 3.4 mmol/L (3.5-5.1)
[2020-03-29] MEDS: POLYETHYLENE (MIRALAX) 17 GM PACK PO PRN (10:14)
[2020-03-29] MEDS: HEPARIN SOD 5,000 UNIT/0.5 ML VIAL SQ SCH (10:16)
--- NOTE | 2020-03-29 11:01 | Surgery Progress Note ---
Date of Service March 29, 2020 Assessment & Plan (1) Acute pancreatitis: Resolving. Present on Admission?: Yes (2) Cholecystitis: s/p lap stacey. OK to discharge with drain in place and has f/u scheduled with office on Tuesday. Instructions reviewed. Present on Admission?: Yes Supervising Physician Co-Signing Physician Notes I have seen and examined the patient. PE notable for slight abdominal ttp - non localized. Labs reviewed MRCP results reviewed Suspected gallstone pancreatitis. Lap stacey per surgery. No plans for preoperative eus or ercp. Outpatient EUS with a [facility] provider for further evaluation of borderline pancreatic ductal dilation. Continue IV LR prior and after procedure. GI will sign off. Subjective Pt is s/p laparoscopic cholecystectomy with Dr. Liriano - POD#2. Tolerating diet, still bloated and had some intermittent nausea. Pain meds/ anti nausea meds are working. Ambulating in room. No vomiting. Passing flatus. Wants to go home. Review of Systems Review of Systems: All systems reviewed & are unremarkable except as noted in HPI & below Physical Exam Constitutional: WD/WN, vitals as above Respiratory: normal respiratory effort, lungs clear to auscultation Cardiovascular: RRR, no murmur, no edema Gastrointestinal (Abdomen): Inspection/Auscultation: + abdomen distended; + abnormal bowel sounds (hypoactive) Percussion/Palpation: abdomen soft; abdomen nontender and no guarding incisions clean, DEVORAH serous Neurologic: moves all extremities; no focal motor deficits Psychiatric: A+Ox3, euthymic affect Results & Data Vital Signs (Past 12 Hours) Vital Signs Temp Pulse Resp BP Pulse Ox 03/29/20 07:53 36.9 C 73 16 130/88 98 03/28/20 23:32 37.0 C 80 16 106/68 94 Laboratory Results Abnormal lab results 03/29/20 03/29/20 Range/Units 08:17 08:17 RBC 3.95 L (4.2-5.4) M/uL Hgb 9.8 L (12.0-16.0) g/dL Hct 30.9 L (37-47) % MCV 78.2 L (80-100) fL MCH 24.8 L (25-34) pg MCHC 31.7 L (32-36) g/dL RDW Std Deviation 47.1 H (36.4-46.3) fL RDW Coeff of [place] 16.2 H (11.5-14.5) % Potassium 3.4 L (3.5-5.1) mmol/L Chloride 108 H (98-107) mmol/L BUN 4 L (7-18) mg/dl BUN/Creatinine Ratio 6.3 L (10-20) Calcium 8.4 L (8.5-10.1) mg/dl (1) Acute pancreatitis Acute pancreatitis complication: unspecified Pancreatitis type: unspecified pancreatitis type Qualified Code(s): K85.90 - Acute pancreatitis without necrosis or infection, unspecified
[2020-03-29] MEDS ORDERED: POTASSIUM CHLORIDE 20 MEQ TABCR PO STA (11:13)
[2020-03-29] MEDS ORDERED: MAGNESIUM OXIDE 400 MG TAB PO SCH (11:30)
--- NOTE | 2020-03-29 11:31 | Discharge Summary ---
Date of Service March 29, 2020 Admission HPI Per Admitting Provider This is a 34-year-old female with past medical history significant for allergic rhinitis, GERD, irritable bowel syndrome, plantar fascitis, fibromyalgia, history of herpes simplex type 1 infection, attention deficit disorder, anxiety, anorexia nervosa, depression, presents with severe abdominal pain after eating. At 2:00 p.m., she ate steak and zucchini. She noticed severe pain in her epigastric region radiating to the back and also in her chest. She had one episode of vomiting, no blood in the vomitus, which prompted her to come to the ER. Denies any fever, chills. She had a normal bowel movement today. No blood in the stools or black stools. No shortness of breath, no cough. No loss of sense of smell or taste. No headache, had some headache. No blurred vision, no earache, no runny nose, no sore throat. Normal bladder movements. No rash. Seems to be in pain. Imaging studies shows pancreatitis and cholecystitis. Admission Exam Per Admitting Provider GENERAL: The patient is of moderate build, not in acute distress. VITAL SIGNS: Temperature 36.6, pulse 90, respiratory rate 21, blood pressure 121/82, oxygen 98% on room air. HEENT: Pupils equal, round, reactive to light. Extraocular muscles intact. NECK: Supple, no neck masses seen. CARDIOVASCULAR: S1, S2 heard, regular rate and rhythm, no murmur, no gallop. RESPIRATORY SYSTEM: Normal AP diameter. No accessory muscle use. No wheezing, no crackles. ABDOMEN: Soft, bowel sounds sluggish. Tenderness in the epigastric region. Guarding present. No distention. CENTRAL NERVOUS SYSTEM: Cranial nerves II-XII grossly intact. Nonfocal. EXTREMITIES: No edema, no erythema. Principal Diagnosis Acute pancreatitis and cholecystitis Discharge Exam GENERAL: Young female lying in bed, in no acute distress HEENT: Normocephalic, atraumatic, PERRL. EOMI. NECK: Supple CARDIOVASCULAR: S1, S2 heard, regular rate and rhythm, no murmur, no gallop. RESPIRATORY: No accessory muscle use. CTAB, no wheezing, rhonchi, or crackles. ABDOMEN: abdomen soft, bowel sounds sluggish. Mild diffuse tenderness to palpation. Small incisions s/p surgery, no erythema, edema noted. Drain placed d/t ascites noted during surgery, small amount of serous drainage noted. NEURO: Alert and oriented x 3, no facial asymmetry, speech fluent, moves all extremities spontaneously EXTREMITIES: No edema, no erythema. SKIN: Warm, dry, well perfused PSYCH: Euthymic affect Discharge Data Allergies Allergy/AdvReac Type Severity Reaction Status Date / Time promethazine Allergy Severe TONIC Verified 03/24/20 22:22 REACTION Consultations 03/25/20 00:05 ED Decision to Admit Stat 03/25/20 08:00 Consult Gastroenterology Routine Consult General Surgery Routine Procedures Performed Operation Date: 03/27/20 11:20 Actual Procedures p Laparoscopic Cholecystectomy(Not Applicable) - Jose Liriano MD, FACS Ordered Studies 03/24/20 21:24 CT abd pelvis IV con only Stat IMPRESSION: 1. Findings are highly concerning for acute cholecystitis. Consider right upper quadrant ultrasound for confirmation. 2. Question concurrent mild acute pancreatitis. No peripancreatic fluid collection is identified and the pancreas enhances homogeneously. 3. Trace pleural effusions. 4. Trace nonspecific free fluid in the cul-de-sac is likely within physiologic limits. 03/24/20 22:05 US gallbladder Urgent IMPRESSION: 1. Distended gallbladder with sludge, wall thickening, and pericholecystic fluid. In conjunction with the positive sonographic Purdy sign this is concerning for a calculus cholecystitis. Clinical correlation recommended. 2. Small amount of fluid surrounding the pancreatic body which could be due to the adjacent cholecystitis or a superimposed pancreatitis. Recommend correlation with pancreatic enzymes. 03/25/20 02:15 MR MRCP Urgent IMPRESSION: 1. No biliary ductal dilatation. No common bile duct calculi identified. 2. Significant increase in extensive peripancreatic fluid consistent with acute pancreatitis. No peripancreatic fluid collections. 3. Mildly distended gallbladder with gallbladder wall thickening. No gallstones identified. The findings may reflect acalculus cholecystitis. 4. Duodenal diverticulum. Hospital Course (1) Cholecystitis: (2) Acute pancreatitis: (3) Upper abdominal pain: 34-year-old female who presented with abdominal pain and found to have acute cholecystitis and pancreatitis 1. Cholecystitis - seemingly acalculous cholecystitis but the common bile duct dilated on ultrasound, but there were no gallstones visualized - MRCP ordered, no choledocholithiasis, positive for duodenal diverticulum - LFTs normal - treated with bowel rest , IV fluid, Abx - IV zosyn Surgery consulted - pt is now s/p laparoscopic cholecystectomy with Dr. Liriano (03/27/2020) - pt tolerated procedure well - noted ascites during surgery (likely d/t pancreatitis), drain placed, plan to d/c with drain and on Abx -Augmentin was sent to her pharmacy 2. Pancreatitis, possibly from above. -Lipase above 14,000 on admission -treated with IV fluid, bowel rest, initially -Pain control with IV Dilaudid p.r.n., n.p.o., - IV antiemetics -Currently lipase normalized -underwent lap stacey on 03/27 - tolerating PO diet (low fat diet) GI recommends outpatient EUS in 4 to 6 weeks with [facility] provider for pancreatic duct dilatation, signed off 3. Anemia -Likely secondary to aggressive IV fluids and some acute blood loss/postsurgical expected anemia -Current hemoglobin 9.8, stable 4. History of attention deficit disorder, anorexia nervosa, and depression. Continue her home medication of Brexpiprazole, Risperdal, Zoloft and Lamictal 5. Gastroesophageal reflux disease, IV Protonix. 6. History of herpes simplex type 1 infection. Continue acyclovir. 7. Allergic rhinitis, on Flonase. 8. Hypokalemia -Likely secondary to n.p.o. status initially and aggressive IV fluids -Replace and monitor Dispo: home today Follow-up with surgery. Pt will be discharged with drain. Antibiotic sent to her pharmacy. Total Time Total Time Spent Total Time Spent (In Minutes): 40 Total Time Includes: Examination of the Patient, Discharge Planning, Medication Reconciliation and Communication With Other Providers Discharge Plan Discharge Items Patient Disposition: Home - Self-Care Reason For Visit: ABDOMINAL PAIN Discharge Diagnosis: acute pancreatitis and cholecystitis Activity: Per Instructions section Lifting: No more than 10 pounds Bathing Comment: may shower, no soaking in tubs Sexual Activity: When tolerated Exercise/Sports: Wait until after follow-up appointment Driving/Machine Use: Resume 3 days after discharge Non-emergency contact: Primary Care Provider and Surgeon Call non-emergency contact if: you have any medication questions, your symptoms worsen, your pain is not controlled, your pain is worsening, your pain is unusual for you, you have a fever, your temperature is above 101.5, your wound has increased redness, your wound has increased drainage and your wound pain has increased Follow-up/Referrals: Jose Liriano MD, FACS [Physician] - Silvio Sexton MD [Primary Care Provider] - Diet: Low Fat Addtl Attending Provider Instructions: SPECIAL CARE INSTRUCTIONS: * Cover incisions and change daily for comfort/drainage. * May use ibuprofen for pain as tolerated. * Expect some swelling and bruising. Call your doctor if: * Temperature above 101 degrees * Pain not relieved by pain medicine ordered * There is increased drainage or redness from any incision * You have any unanswered questions or concerns [phone]. FOLLOW UP VISIT: If not already scheduled, please call the office for a follow-up visit. OFFICE PHONE NUMBER: Dr. Liriano Office Please care for your drain as instructed prior to discharge from the hospital, empty 2-3 times per day as needed. Please schedule follow up in clinic this upcoming Tuesday04/01/20 for drain removal. [employer] Provider Instructions: While you were in the hospital, you were also evaluated by our gastroenterology service. They recommend outpatient EUS in 4 to 6 weeks with [facility] provider for pancreatic duct dilatation. Pending Studies at Discharge: No Stand-Alone Forms: My [employer], Smoking Cessation Medications and DC Order Prescriptions: New amoxicillin-pot clavulanate [Augmentin] 875-125 mg tablet 1 tab PO BID Qty: 10 RF: 0 hydrocodone-acetaminophen [Flasher] 5-325 mg tablet 1 - 2 tab PO .q4-6h PRN (Reason: pain, for initial therapy, max 6 tabs per day) Qty: 15 RF: 0 Continued lamotrigine 150 mg tablet 150 mg PO HS RF: 0 acyclovir 400 mg tablet 400 mg PO BID RF: 0 Rexulti 1 mg tablet 0.5 mg PO DAILY RF: 0 sertraline [Zoloft] 100 mg Tablet 150 mg PO DAILY RF: 0 risperidone [Risperdal] 0.5 mg Tablet 0.75 mg PO HS RF: 0 Prilosec OTC 20 mg Tablet,Delayed Release (Dr/Ec) 20 mg PO DAILY RF: 0 Discharge Orders: Discharge Order (Routine); Ordered 03/29/20 Ordered By: Felix De La Vega/Other Patient Handouts: Cooking Tips Low Fat, Flavor Add Low Fat Meals, ED Low Fat Diet, ED Low-Cholesterol Diet Admission Data Admit Date/Time: 03/25/20 00:46 Attending Provider: Felix Brar Admit Provider: Nima Gregg Primary Care Provider: Silvio Sexton Other Providers: Sari Villalobos ; Nima Gregg ; Anjana Crespo ; Priscilla Lozoya ; Walter Mckeon ; Aline Hernandez ; Julio C Covarrubias ; Jeff Pa ; Frankie Ramey ; Ros Ng ; Morales Tapia ; Kt Sims ; Katie Vázquez ; Zaynab Mayen ; Madyson Wright ; Lolita Santiago ; Amber [address] ; Stef Andino ; Beatriz Barboza ; Zak Hopkins ; Carolina Pa ; Claudio Krishna ; Jasmeet Dean ; Yesenia Brewer ; Cornelius Lucero ; Priscilla Alves ; Jose Basurto Jr ; Cassandra Breen ; Lolita Dey
== END 2020-03-29 12:09 | disposition home or self-care (01) | DRG 417 ==
LOC: ED 19:19 → 3E 03-25 00:46 → SUATTDRO 03-25 00:46 → 3E 03-25 01:56

== ENCOUNTER 2023-11-27 13:14 | Inpatient (IN) ==
[2023-11-27 14:16] LABS: Basophils # (auto) 0.03 K/uL (0.00-0.20); Basophils % (auto) 0.3 %; Hematocrit (blood only) 42.7 % (37.0-47.0); Immature Granulocytes # (auto) 0.04 K/uL (0.01-0.20); Immature Granulocytes % (auto) 0.4 %; Lymphocytes % (auto) 13.6 %; Mean Corpuscular Hgb Conc 32.8 g/dL (32.0-36.0); Mean Corpuscular Volume 91.4 fL (80.0-100.0); Mean Platelet Volume 9.2 fL (9.4-12.4); Monocytes # (auto) 0.33 K/uL (0.11-0.59); Monocytes % (auto) 3.4 %; Neutrophils # (auto) 7.89 K/uL (1.40-6.50); Neutrophils % (auto) 82.3 %; Platelet Count 290 K/uL (130-400); RDW Coefficient of Variation 12.4 % (11.5-14.5); RDW Standard Deviation 41.4 fL (36.4-46.3); Red Blood Count 4.67 M/uL (4.20-5.40); White Blood Count 9.59 K/ul (4.8-10.8)
[2023-11-27 14:36] LABS: Albumin Globulin Ratio 1.6 (0.9-2); Albumin Level 4.4 gm/dl (3.4-5.0); BUN Creatinine Ratio 11.4 (10-20); Bilirubin,Total 0.4 mg/dl (0.2-1.0); Calcium 9.6 mg/dl (8.6-10.3); Est GFR (African American) 128.3 ml/min; Est GFR (Non-African American) 110.7 ml/min; Globulin 2.8 gm/dl (2.5-4.0); Potassium 4.6 mmol/L (3.5-5.1); Total Protein 7.2 gm/dl (6.0-8.3)
[2023-11-27] MEDS ORDERED: ONDANSETRON INJ 2 MG/ML 2 ML VIAL IV STA (15:17)
[2023-11-27] MEDS ORDERED: KETOROLAC TROMETHAMINE 15 MG/ML VIAL IV ONE ×2 (15:17→21:27)
[2023-11-27] MEDS ORDERED: SODIUM CHLORIDE 0.9% 1,000 ML IV ONE (15:17)
[2023-11-27] MEDS: HYDROmorphone INJ 0.5 MG/0.5 ML SYR IV PRN ×2 (15:25→17:22)
--- NOTE | 2023-11-27 15:27 | Emergency Department Note ---
Impression & Plan Acute facial pain, Headache ED Provider Note NAME: JOSTIN GARCIA AGE: 37 SEX: Female INFORMANT: Patient ED PROVIDER(S): Chandan Ocampo MD CHIEF COMPLAINT: Facial pain PLAN: Disposition: Admitted Outpatient prescription management: none Referral: None MEDICAL DECISION MAKING: Patient presented. Laboratory testing performed. CBC and chemistry panel was unremarkable. Given the patient's history of sinus surgery and her level of discomfort patient was given IV fluids, Toradol, Zofran, and Dilaudid. CT imaging of the head and sinuses performed. Patient did require second dose of Dilaudid. She noted some transient relief with this but it did not abort her facial pain or headache. Patient was still complaining about neck stiffness. CT imaging shows minimal sinus disease in the right frontal sinus. This would not explain the patient's symptomatology as she does have pain on the left side of the face, retro-orbital, and left uatsdin. Patient and I discussed lumbar puncture. This was performed. Patient's blood work was unremarkable and her CSF studies did not reveal any evidence of meningitis or encephalitis. Patient was treated with IV Tylenol, Decadron, Reglan, Benadryl, and magnesium to evaluate for possible atypical migraine. Patient noted some mild improvement with this but still rated her pain as a 6 out of 10. Consult[address] with [address] Bruno of neurology. Discussed the patient's presentation, results, and treatment thus far. He did recommend an additional NSAID dose as well as IV valproic acid 500 mg. Patient is not and this is reasonable approach. Prior to the patient noted her pain did increase back to an 8 out of 10 in the frontal region. She was 6 hours from the first Toradol dose and was given a second Toradol dose as well as the 500 mg IV infusion. Patient was reassessed. She had minimal improvement still noting the pain was about a 6 out of 10. Given the nature of the treatment and her response further management in the hospital was felt to be appropriate. Consultation was made with the [facility], Dr. Gregg. Case discussed and diagnostics were reviewed. 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 Triage Nursing notes: reviewed and agree them. Vital Signs: reviewed and remarkable for no significant abnormalities Additional History obtained from: none Chronic Medical/Social Conditions affecting care: Migraine Prior/ Outside/ External records reviewed: none Differential Diagnosis: Migraine headache, meningitis, sinusitis, CO exposure, ICH, SAH, infection, tumor, headache, sinus thrombosis, arterial dissection, as well as other pathologies. Diagnostics, independently interpreted by me: ECG: none Cardiac Monitoring: Cardiac monitoring ordered by me: The patient was placed on continuous cardiac monitoring and observed. It revealed a normal sinus rhythm at 73 beats per minute without ectopy or evidence of dysrhythmia. Medical decision rules: none Imaging studies: CT imaging of the head and sinuses reveals slight right frontal sinusitis but no evidence of significant maxillary or sphenoid sinusitis. No intracranial pathology appreciated. I refer you to the EMR for further details. HPI: 37 year old Female arrives for evaluation of acute facial pain. This started 3 days ago and is worsening. The patient also notes the following associated symptoms, frontal headache, nausea, photophobia, and neck pain. The patient has tried her migraine medications unsuccessfully for relieving factors. Current pain is rated as 8/10. Patient has history of sinus surgery x 2. Patient was also prescribed doxycycline and prednisone 5 days ago for sinus symptoms. Patient does note URI about 9 days ago. That has seemed to be resolved. Pt denies LOC, fevers, chills, diaphoresis, visual changes, sore throat, earaches, chest pain, breathing difficulties, vomiting, abdominal pain, back pain, diarrhea, urinary symptoms, numbness, weakness, lymphadenopathy, rash, or other complaints. PAST MEDICAL HISTORY: See Below, migraine, sinusitis PAST SURGICAL HISTORY: See Below, sinus surgery x 2 SOCIAL HISTORY: See Below, non-smoker HOME MEDICATIONS: See Below ALLERGIES: See Below VITALS: See Below PHYSICAL EXAMINATION: GENERAL: Awake, alert, uncomfortable-appearing, in no distress HENT: Normocephalic, atraumatic. Oropharynx unremarkable. TMs normal. Transillumination of frontal and maxillary sinuses unremarkable. EYES: Normal conjunctiva. Sclera non-icteric. PERRLA. EOMI. NECK: Inspection normal. Non-tender. Supple. No nuchal rigidity but mild pain with forward flexion elicited. FROM. No masses. RESPIRATORY: Clear to auscultation. No wheezes. No rales. Normal respiratory effort. CARDIAC: Normal rate. Normal rhythm. No murmurs. No rubs. Extremities warm and well perfused. Pulses equal. No JVD. GI: Soft, non-distended. No tenderness to palpation. No rebound or guarding. No masses. MUSCULOSKELETAL: Atraumatic. The back is symmetrical on inspection without obvious abnormality. There is no CVA tenderness to palpation. No joint edema. LOWER EXTREMITIES: Calves are equal size bilaterally and non-tender. No edema. No discoloration. NEURO: Normal sensorium. No sensory or motor deficits noted. Speech normal. Cranial nerves intact. No drift. Normal rapid alternating movements. SKIN: No rash or jaundice noted. PROCEDURES: Lumbar Puncture Indication: Headache and stiff neck. Verbal consent was obtained after the risks and benefits were explained, including but not limited to headache, bleeding/clotting, scarring, infection, pain, and bone/joint/nerve damage. At this time, the risks of the procedure are less than the risks of NOT performing the procedure. A time out was taken and the correct patient and site identified. The patient was placed in the left lateral decubitus position and the back was prepped with betadine and draped in the standard fashion. The L3 intervertebral space was identified, anesthetized locally with 1% lidocaine without epinephrine, and the 22-gauge spinal needle was inserted through the skin with the bevel parallel to the dural fibers. The needle was carefully advanced into the lumbar cistern and 4 tubes of clear CSF was obtained. The stylet was replaced and the needle was removed. A bandaid was placed and the patient was placed in the supine position. The patient tolerated the procedure well and there were no complications. CRITICAL CARE: none OBSERVATION NOTE: none Past Med/Surg History Medical History (Updated 11/27/23 @ 15:27 by Chandan Ocampo MD) Anorexia Macromastia Acute pancreatitis PONV (postoperative nausea and vomiting) Heart palpitations HOLTOR MONITOR TEST DONE 2016/DR. DOBBINS. [facility]/PACS. 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 Sarmiento History of nasal septoplasty 09/02/22-Dr. Sarmiento Hx of sinus surgery S/P bilateral breast reduction (~08/2020) Status post laparoscopic cholecystectomy History of anesthesia reaction MIGRAINES AFTER-NOT WITH RECENT SURGERY History of surgery EGG RETRIEVAL History of esophagogastroduodenoscopy (EGD) [place] teeth removed H/O laparoscopy 2013 for ovarian torsion S/P section X 2 Family History Grandfather (Maternal) Colorectal cancer Diabetes Mother Multiple sclerosis Father Bleeding disorder Other No family history of adverse response to anesthesia Stroke Social History Smoking Status: Never smoker Second Hand Exposure: Yes (PARENTS SMOKED); Do You Dip or Chew Tobacco: No; Hx Alcohol Use: No Hx Substance Use: No Preferred Language: Setswana Communication Ability: Effective Visual Impairment: No Limitations Hearing Ability: Normal Company Doctor Required: No Beliefs That Will Affect Care: None marital status: Current Living Situation: Spouse current occupational status: employed 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 Feels Safe at Home: Yes Assistive Devices: Glasses Allergies Allergies Allergy/AdvReac Type Severity Reaction Status Date / Time promethazine Allergy Severe TONIC Verified 11/27/23 20:43 REACTION Home Meds Home Medications Medication Instructions Recorded Confirmed acyclovir 400 mg tablet 400 mg PO AMHS 03/11/19 11/27/23 magnesium oxide 400 mg (241.3 mg 400 mg PO BID 06/22/22 11/27/23 magnesium) tablet lorazepam 0.5 mg tablet (Ativan) 0.5 mg PO BID PRN Anxiety 08/30/22 11/27/23 modafinil 200 mg tablet 300 mg PO QAM 03/04/23 11/27/23 lamotrigine 200 mg tablet 200 mg PO HS 04/22/23 11/27/23 escitalopram oxalate 20 mg tablet 20 mg PO QAM 05/31/23 11/27/23 albuterol sulfate 90 mcg/actuation 2 puff inhalation Q4H PRN 09/05/23 11/27/23 aerosol inhaler cough,wheeze,SOB,prior exercise docusate sodium 100 mg capsule 100 mg PO BID 09/05/23 11/27/23 (Colace) Budesonide 0.6mg/Ml Conc See Rx Instructions .Route .COMPLEX 11/27/23 11/27/23 aripiprazole 2 mg tablet 2 mg PO QAM 11/27/23 11/27/23 azelastine 137 mcg (0.1 %) nasal 2 spray intranasal AMHS 11/27/23 11/27/23 spray aerosol iron,carbonyl 65 mg-vitamin C 125 1 tab PO Q OTHER DAY 11/27/23 11/27/23 mg tablet,delayed release (Vitron-C) lifitegrast 5 % eye drops in a 1 drp OPB BID 11/27/23 11/27/23 dropperette (Xiidra) lubiprostone 24 mcg capsule 24 mcg PO BIDM 11/27/23 11/27/23 omeprazole 20 mg capsule,delayed 20 mg PO QAM 11/27/23 11/27/23 release riboflavin (vitamin B2) 400 mg 400 mg PO QAM 11/27/23 11/27/23 tablet Previous Rx's Medication Instructions Recorded fluticasone propionate 93 1 spray intranasal BID #16 mL 04/22/23 mcg/actuation breath activated aerosol (Xhance) rimegepant 75 mg disintegrating 75 mg PO ONCE PRN migraine 07/26/23 tablet (Nurtec ODT) headache #8 tabs doxycycline hyclate 100 mg capsule 100 mg PO BID #14 caps 11/22/23 prednisone 10 mg tablet 10 mg PO .COMPLEX #26 tabs 11/22/23 Results & Data (ED) Vital Signs Vital Signs - 24 hr 11/27/23 13:35 11/27/23 14:46 11/27/23 16:00 Temperature 36.6 C Temperature Source Temporal Artery Scan Pulse Rate 80 Pulse Rate [Radial] 77 88 Respiratory Rate 20 18 15 Respiratory Effort / Characteristics Non-Labored Respiratory Depth Normal Blood Pressure 132/90 Blood Pressure [Right Arm] 139/86 Blood Pressure Mean 104 Blood Pressure Mean [Right Arm] 103 Pulse Oximetry 100 95 98 Oxygen Delivery Method Room Air Room Air Room Air Sepsis Recent Fever Within 48 Hours No Sepsis New/Unexplained Change in Mental Status No Sepsis Action Taken by Nursing No Action Required 11/27/23 18:00 11/27/23 19:59 Temperature Temperature Source Pulse Rate Pulse Rate [Radial] 68 73 Respiratory Rate 16 14 Respiratory Effort / Characteristics Respiratory Depth Blood Pressure Blood Pressure [Right Arm] 121/66 Blood Pressure Mean Blood Pressure Mean [Right Arm] 84 Pulse Oximetry 94 93 Oxygen Delivery Method Room Air Room Air Sepsis Recent Fever Within 48 Hours Sepsis New/Unexplained Change in Mental Status Sepsis Action Taken by Nursing Laboratory Data 11/27/23 14:05 11/27/23 14:05 Lab Results 11/27/23 11/27/23 Range/Units 14:05 18:07 WBC 9.59 (4.8-10.8) K/ul RBC 4.67 (4.20-5.40) M/uL Hgb 14.0 (12.0-16.0) g/dl Hct 42.7 (37.0-47.0) % MCV 91.4 (80.0-100.0) fL MCH 30.0 (25.0-34.0) pg MCHC 32.8 (32.0-36.0) g/dL RDW Std Deviation 41.4 (36.4-46.3) fL RDW Coeff of Poonam 12.4 (11.5-14.5) % Plt Count 290 (130-400) K/uL MPV 9.2 L (9.4-12.4) fL Immature Gran % (Auto) 0.4 % Neut % (Auto) 82.3 % Lymph % (Auto) 13.6 % [place] % (Auto) 3.4 % Eos % (Auto) 0.0 % Baso % (Auto) 0.3 % Neut # (Auto) 7.89 H (1.40-6.50) K/uL Lymph # (Auto) 1.30 (1.20-3.40) K/uL [place] # (Auto) 0.33 (0.11-0.59) K/uL Eos # (Auto) 0.00 (0.00-0.50) K/uL Baso # (Auto) 0.03 (0.00-0.20) K/uL Immature Gran # (Auto) 0.04 (0.01-0.20) K/uL Sodium 138 (136-145) mmol/L Potassium 4.6 (3.5-5.1) mmol/L Chloride 104 (98-107) mmol/L Carbon Dioxide 30 (21-32) mmol/L Anion Gap 4 (3-11) BUN 8 (6-23) mg/dl Creatinine 0.70 (0.6-1.2) mg/dl Est Cr Clr Drug Dosing 103.0 ml/min Est GFR ( Amer) 128.3 ml/min Est GFR (Non-Af Amer) 110.7 ml/min BUN/Creatinine Ratio 11.4 (10-20) Glucose 119 H (70-99(Fasting)) mg/dl Calcium 9.6 (8.6-10.3) mg/dl Total Bilirubin 0.4 (0.2-1.0) mg/dl AST 23 (13-39) U/L ALT 28 (7-52) U/L Alkaline Phosphatase 60 (34-104) U/L Total Protein 7.2 (6.0-8.3) gm/dl Albumin 4.4 (3.4-5.0) gm/dl Globulin 2.8 (2.5-4.0) gm/dl Albumin/Globulin Ratio 1.6 (0.9-2) HCG, Qual Negative (Negative) Fluid Comment CSF Appearance Clear CSF Color Colorless Xanthrochromic No xanthochromia CSF WBC 1.1 (0-5) CSF RBC 0 (0-) CSF Cell Count Tube # 3 CSF Chemistry Tube # 1 CSF Glucose 66 (40-70) mg/dl CSF Total Protein 36.8 (15-45) mg/dl Lyme Disease IgG Ab Negative (Negative) Lyme Disease IgM Ab Negative (Negative) Administered Medications Hydromorphone HCl (Hydromorphone Inj 0.5 Mg/0.5 Ml Syr) 0.5 mg IV Q15M PRN PRN Reason: Pain Stop: 12/11/23 15:16 Last Admin: 11/27/23 17:22 Dose: 0.5 mg Documented By: Admin: 11/27/23 15:25 Dose: 0.5 mg Documented By: ACC Discontinued Medications Dexamethasone Sodium Phosphate (DexamethasonePf 10 Mg/Ml Vial) 10 mg IV NOW ONE Stop: 11/27/23 18:47 Last Admin: 11/27/23 19:00 Dose: 10 mg Documented By: ACC Diphenhydramine HCl (Diphenhydramine 50 Mg/Ml Vial) 12.5 mg IV NOW STA Stop: 11/27/23 18:47 Last Admin: 11/27/23 19:00 Dose: 12.5 mg Documented By: ACC Sodium Chloride (Nss) 1,000 mls @ 999 mls/hr IV .Q1H1M ONE Stop: 11/27/23 16:17 Last Infusion: 11/27/23 17:06 Dose: Infused Documented By: Admin: 11/27/23 15:25 Dose: 999 mls/hr Documented By: ACC Magnesium Sulfate/Dextrose (Magnesium Sulfate / D5w) 1 gm in 100 mls @ 50 mls/hr IV ONE ONE Stop: 11/27/23 20:45 Last Infusion: 11/27/23 21:14 Dose: Infused Documented By: Admin: 11/27/23 19:13 Dose: 50 mls/hr Documented By: ACC Acetaminophen (Ofirmev) 1,000 mg in 100 mls @ 400 mls/hr IV NOW STA Stop: 11/27/23 19:01 Last Infusion: 11/27/23 19:21 Dose: Infused Documented By: Admin: 11/27/23 19:00 Dose: 400 mls/hr Documented By: ACC Valproic Acid 500 mg/ Dextrose 55 mls @ 55 mls/hr IV NOW STA Stop: 11/27/23 22:26 Last Admin: 11/27/23 21:44 Dose: 55 mls/hr Documented By: ACC Ioversol (Optiray 320 500ml) 87 ml IV ONCE ONE Stop: 11/27/23 15:41 Last Admin: 11/27/23 15:40 Dose: 87 ml Documented By: EDJunior Ketorolac Tromethamine (Ketorolac Tromethamine 15 Mg/Ml Vial) 10 mg IV NOW ONE Stop: 11/27/23 15:18 Last Admin: 11/27/23 15:24 Dose: 10 mg Documented By: ACC Ketorolac Tromethamine (Ketorolac Tromethamine 15 Mg/Ml Vial) 15 mg IV NOW ONE Stop: 11/27/23 21:28 Last Admin: 11/27/23 21:45 Dose: 15 mg Documented By: ACC Metoclopramide HCl (Metoclopramide Hcl Inj 5 Mg/Ml 2 Ml Vial) 5 mg IV ONE ONE Stop: 11/27/23 18:47 Last Admin: 11/27/23 19:01 Dose: 5 mg Documented By: ACC Ondansetron HCl (Ondansetron Inj 2 Mg/Ml 2 Ml Vial) 4 mg IV NOW STA Stop: 11/27/23 15:18 Last Admin: 11/27/23 15:24 Dose: 4 mg Documented By: [facility] Imaging Data Radiologist's Impression: Head CT 11/27/23 15:19 CT head/brain wo con CLINICAL HISTORY: frontal headache Technique: Contiguous axial CT images of the head were acquired from the base of the skull to the vertex without intravenous contrast administration. Images were viewed in brain, subdural and bone windows. Automated dose lowering techniques and/or adjustment according to patient size were utilized for this exam. Comparison: None available at the time of this dictation. Findings: The ventricles, basal cisterns, and cerebral sulci are normal. There is no acute intracranial hemorrhage or evidence of acute territorial infarction. Neither mass effect, shift of the midline structures, nor abnormal extra-axial fluid collections are shown. Imaged portions of the paranasal sinuses and mastoid air cells are clear. The orbits appear normal. There are no acute fractures of the calvaria or scalp swelling. Impression: No acute intracranial hemorrhage, no evidence of acute territorial infarction or other acute intracranial disease process. ACT 112: Negative or not required by law. Electronically signed by: Derrick Cochran M.D. 11/27/2023 4:[address] 11/27/23 15:19 CT sinus w con CLINICAL HISTORY: facial pain, headache, previous sinus surgery x 2 TECHNIQUE: Multidetector axial CT images through the sinuses were obtained. Coronal and sagittal reformations were also obtained. Automated dose lowering techniques and/or adjustment according to patient size were utilized for this examination. Comparison: Comparison is made to CT sinus 03/11/2023 FINDINGS: Partial opacification of the right frontal sinus seen. The orbits appear normal. There are no acute fractures of the calvaria or scalp swelling. IMPRESSION: Partial opacification of the right frontal sinus, increased from prior exam, compatible with sinusitis. ACT 112: Negative or not required by law. Electronically signed by: Derrick Cochran M.D. 11/27/2023 4:49 PM Discharge Plan Visit Data Chief Complaint: Pain (Generalized) Stated Complaint: SEVERE FACIAL PAIN, HEAD PAIN/PRESSURE ED Provider: Chandan Ocampo Discharge Problem: Acute facial pain, Headache Forms Stand Alone Forms: My [facility] Prescriptions Prescriptions: No Action Nurtec ODT 75 mg tablet,disintegrating 75 mg PO ONCE PRN (Reason: migraine headache) Qty: 8 5RF doxycycline hyclate 100 mg capsule 100 mg PO BID Qty: 14 0RF Rx Instructions: take for 7 days ordered 11/22/23 prednisone 10 mg tablet 10 mg PO .COMPLEX Qty: 26 0RF Rx Instructions: 10 mg PO 4 tabs daily x 5 days then 3 tabs x 1 day, 2 tabs x 1 day, 1 tab x 1 day then stop. magnesium oxide 400 mg (241.3 mg magnesium) tablet 400 mg PO BID lamotrigine 200 mg tablet 200 mg PO HS Xhance 93 mcg/actuation aerosol breath activated 1 spray intranasal BID Qty: 16 8RF Rx Instructions: into each nostril acyclovir 400 mg tablet 400 mg PO AMHS escitalopram oxalate 20 mg tablet 20 mg PO QAM docusate sodium [Colace] 100 mg Capsule 100 mg PO BID albuterol sulfate 90 mcg/actuation Hfa Aerosol Inhaler 2 puff INHALATION Q4H PRN (Reason: cough,wheeze,SOB,prior exercise) Xiidra 5 % dropperette 1 drp OPB BID omeprazole 20 mg capsule,delayed release(DR/EC) 20 mg PO QAM lubiprostone 24 mcg capsule 24 mcg PO BIDM Rx Instructions: take with morning and evening meal aripiprazole 2 mg tablet 2 mg PO QAM azelastine 137 mcg (0.1 %) aerosol,spray 2 spray INTRANASAL AMHS riboflavin (vitamin B2) 400 mg tablet 400 mg PO QAM Rx Instructions: ran out Vitron-C 65 mg iron- 125 mg Tablet,Delayed Release (Dr/Ec) 1 tab PO Q OTHER DAY Budesonide 0.6mg/Ml Conc See Rx Instructions .ROUTE .COMPLEX Rx Instructions: add 1 ml (squeeze 0.5 ml twice = 1 ml dose) of med to 250 ml of saline in saline irrigation bottle,irrigate sinuses with 120 ml through each nostil twice a day lorazepam [Ativan] 0.5 mg Tablet 0.5 mg PO BID PRN (Reason: Anxiety) modafinil 200 mg tablet 300 mg PO QAM Referrals Referrals: Silvio Sexton MD [Primary Care Provider] -
[2023-11-27] MEDS ORDERED: OPTIRAY 320 500ml IV ONE (15:40)
--- NOTE | 2023-11-27 16:49 | CT Scan Report ---
CT head/brain wo con CLINICAL HISTORY: frontal headache Technique: Contiguous axial CT images of the head were acquired from the base of the skull to the jodie kierra without intravenous contrast administration. Images were viewed in brain, subdural and [facility] . Automated dose lowering techniques and/or adjustment according to patient size were utilized for this exam. Comparison: None available at the time of this dictation. Findings: The ventricles, basal cisterns, and cerebral sulci are normal. There is no acute intracranial hemorrh age or evidence of acute territorial infarction. Neither mass effect, shift of the midline structures , nor abnormal extra-axial fluid collections are shown. Imaged portions of the paranasal sinuses and mastoid air cells are clear. The orbits appear normal. There are no acute fractures of the calvaria or scalp swelling. Impression: No acute intracranial hemorrhage, no evidence of acute territorial infarction or other acute intracra nial disease process. ACT 112: Negative or not required by law. Electronically signed by: Derrick Cochran M.D. 11/27/2023 4:47 PM
--- NOTE | 2023-11-27 16:50 | CT Scan Report ---
CT sinus w con CLINICAL HISTORY: facial pain, headache, previous sinus surgery x 2 TECHNIQUE: Multidetector axial CT images through the sinuses were obtained. Coronal and sagittal refo rmations were also obtained. Automated dose lowering techniques and/or adjustment according to patien t size were utilized for this examination. Comparison: Comparison is made to CT sinus 03/11/2023 FINDINGS: Partial opacification of the right frontal sinus seen. The orbits appear normal. There are no acute f ractures of the calvaria or scalp swelling. IMPRESSION: Partial opacification of the right frontal sinus, increased from prior exam, compatible with sinusiti s. ACT 112: Negative or not required by law. Electronically signed by: Derrick Cochran M.D. 11/27/2023 4:49 PM
[2023-11-27 18:40] LABS: Total Protein CSF 36.8 mg/dl (15-45)
[2023-11-27 18:45] LABS: CSF Count Tube # 3
[2023-11-27 18:46] LABS: Appearance CSF Clear; CSF Xanthrochromic No xanthochromia; Color CSF Colorless; Red Blood Cell CSF Manual 0 (0-); White Blood Cell CSF Manual 1.1 (0-5)
[2023-11-27] MEDS ORDERED: MAGNESIUM SULFATE / D5W 1 GM/100 ML BAG IV ONE (18:46)
[2023-11-27] MEDS ORDERED: METOCLOPRAMIDE HCL INJ 5 MG/ML 2 ML VIAL IV ONE (18:46)
[2023-11-27] MEDS ORDERED: diphenhydrAMINE 50 MG/ML VIAL IV STA (18:46)
[2023-11-27] MEDS ORDERED: dexAMETHasone**PF** 10 MG/ML VIAL IV ONE (18:46)
[2023-11-27] MEDS ORDERED: ACETAMINOPHEN 1,000 MG/100 ML VIAL IV STA (18:47)
[2023-11-27 18:59] LABS: Lyme Ab IgG w/WB Rflx Negative (Negative); Lyme Ab IgM w/WB Rflx Negative (Negative)
[2023-11-27 21:18] LABS: Pregnancy Test, Serum Negative (Negative)
[2023-11-27] MEDS ORDERED: VALPROATE SOD 500 MG in DEXTROSE 5% 50 ML IV STA (21:27)
--- NOTE | 2023-11-28 00:04 | History & Physical Report ---
Date of Service November 27, 2023 Assessment & Plan (1) Intractable headache: Plan: 37-year-old female with past medical history significant for chronic maxillary sinusitis, nonallergic rhinitis, exercise-induced bronchospasm, GERD, irritable bowel syndrome, fibromyalgia, chronic non-intractable headaches, iron deficiency anemia, herpes simplex type I infection, attention deficit disorder without hyperactivity, anxiety state, anorexia nervosa, mild depression, history of pancreatitis comes with intractable headache since last 2 days. Patient has history of migraines. She also recently having upper respiratory infection and on prednisone taper and doxycycline couple more days to complete the course. As headaches not getting better she came to the ER. She received IV Tylenol, Decadron, Benadryl, Toradol, magnesium, Reglan, but headache did not improve. She also complains of neck stiffness. The ER did the LP but it was unremarkable. Sinus CT showed right frontal sinusitis and CT head were unremarkable. But headache seen in both the maxillary region radiating to both the temporal region. Sounds not bothering her. But lights are bothering somewhat. As headache not getting better ER discussed with Neurology and was recommend to give another dose of Toradol and Depakote which are given and the patient symptoms did not improve so we are called for admission. Hemodynamics are okay. Denies any blurred vision. No sore throat. No cough. No fevers. No chest pain. No shortness of breath. Currently no nausea or vomiting. Appetite is okay. No abdominal pain. Normal bowel and bladder movements. Intractable headache History of migraines CT head is okay Received Dilaudid, Toradol, Decadron, Benadryl, Reglan, Depakote but not getting better Will observe in the hospital IV fluids IV Dilaudid and IV Toradol as needed Neurology consult in a.m. URI Complete doxycycline and prednisone taper IBS On lubiprostone Depression Attention deficit disorder Continue home medications DVT prophylaxis SCDs for now Disposition Medical floor Full code History of Present Illness Chief Complaint: Intractable headaches Primary Care Provider: Silvio Sexton MD 37-year-old female with past medical history significant for chronic maxillary sinusitis, nonallergic rhinitis, exercise-induced bronchospasm, GERD, irritable bowel syndrome, fibromyalgia, chronic non-intractable headaches, iron deficiency anemia, herpes simplex type I infection, attention deficit disorder without hyperactivity, anxiety state, anorexia nervosa, mild depression, history of pancreatitis comes with intractable headache since last 2 days. Patient has history of migraines. She also recently having upper respiratory infection and on prednisone taper and doxycycline couple more days to complete the course. As headaches not getting better she came to the ER. She received IV Tylenol, Decadron, Benadryl, Toradol, magnesium, Reglan, but headache did not improve. She also complains of neck stiffness. The ER did the LP but it was unremarkable. Sinus CT showed right frontal sinusitis and CT head were unremarkable. But headache seen in both the maxillary region radiating to both the temporal region. Sounds not bothering her. But lights are bothering somewhat. As headache not getting better ER discussed with Neurology and was recommend to give another dose of Toradol and Depakote which are given and the patient symptoms did not improve so we are called for admission. Hemodynamics are okay. Denies any blurred vision. No sore throat. No cough. No fevers. No chest pain. No shortness of breath. Currently no nausea or vomiting. Appetite is okay. No abdominal pain. Normal bowel and bladder movements. Past medical history. As mentioned above Past surgical history. Dental surgery. EGD with endoscopic ultrasound. Laparoscopic lysis of additions. Laparoscopic cholecystectomy. Maxillary sinus endoscopy. Nasal endoscopy. Nasal surgery. Reduction of breast. Repair of nasal septum. Stereotactic cranial extradural navigation. Social history. . No smoking. No alcohol. No drug use. Family history. Father has clotting disorder. Mother has MS. Brother has allergies. Allergies Allergy/AdvReac Type Severity Reaction Status Date / Time promethazine Allergy Severe TONIC Verified 11/27/23 20:43 REACTION Home Medications Medication Instructions Recorded Confirmed Type acyclovir 400 mg tablet 400 mg PO AMHS 03/11/19 11/27/23 History magnesium oxide 400 mg (241.3 mg 400 mg PO BID 06/22/22 11/27/23 History magnesium) tablet lorazepam 0.5 mg tablet (Ativan) 0.5 mg PO BID PRN Anxiety 08/30/22 11/27/23 History modafinil 200 mg tablet 300 mg PO QAM 03/04/23 11/27/23 History fluticasone propionate 93 1 spray intranasal BID #16 mL 04/22/23 11/27/23 Rx mcg/actuation breath activated aerosol (Xhance) lamotrigine 200 mg tablet 200 mg PO HS 04/22/23 11/27/23 History escitalopram oxalate 20 mg tablet 20 mg PO QAM 05/31/23 11/27/23 History rimegepant 75 mg disintegrating 75 mg PO ONCE PRN migraine 07/26/23 11/27/23 Rx tablet (Nurtec ODT) headache #8 tabs albuterol sulfate 90 mcg/actuation 2 puff inhalation Q4H PRN 09/05/23 11/27/23 History aerosol inhaler cough,wheeze,SOB,prior exercise docusate sodium 100 mg capsule 100 mg PO BID 09/05/23 11/27/23 History (Colace) doxycycline hyclate 100 mg capsule 100 mg PO BID #14 caps 11/22/23 11/27/23 Rx prednisone 10 mg tablet 10 mg PO .COMPLEX #26 tabs 11/22/23 11/27/23 Rx Budesonide 0.6mg/Ml Conc See Rx Instructions .Route .COMPLEX 11/27/23 11/27/23 History aripiprazole 2 mg tablet 2 mg PO QAM 11/27/23 11/27/23 History azelastine 137 mcg (0.1 %) nasal 2 spray intranasal AMHS 11/27/23 11/27/23 History spray aerosol iron,carbonyl 65 mg-vitamin C 125 1 tab PO Q OTHER DAY 11/27/23 11/27/23 History mg tablet,delayed release (Vitron-C) lifitegrast 5 % eye drops in a 1 drp OPB BID 11/27/23 11/27/23 History dropperette (Xiidra) lubiprostone 24 mcg capsule 24 mcg PO BIDM 11/27/23 11/27/23 History omeprazole 20 mg capsule,delayed 20 mg PO QAM 11/27/23 11/27/23 History release riboflavin (vitamin B2) 400 mg 400 mg PO QAM 11/27/23 11/27/23 History tablet Past Med/Surg History Medical History (Updated 11/27/23 @ 23:59 by Nima Gregg MD) Anorexia Macromastia Acute pancreatitis PONV (postoperative nausea and vomiting) Heart palpitations HOLTOR MONITOR TEST DONE 2016/DR. DOBBINS. OCC PVCS/PACS. 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 Sarmiento History of nasal septoplasty 09/02/22-Dr. Sarmiento Hx of sinus surgery S/P bilateral breast reduction (~08/2020) Status post laparoscopic cholecystectomy History of anesthesia reaction MIGRAINES AFTER-NOT WITH RECENT SURGERY History of surgery EGG RETRIEVAL History of esophagogastroduodenoscopy (EGD) [place] teeth removed H/O laparoscopy 2013 for ovarian torsion S/P section X 2 Family History Grandfather (Maternal) Colorectal cancer Diabetes Mother Multiple sclerosis Father Bleeding disorder Other No family history of adverse response to anesthesia Stroke Social History Smoking Status: Never smoker Second Hand Exposure: Yes (PARENTS SMOKED); Do You Dip or Chew Tobacco: No; Hx Alcohol Use: No Hx Substance Use: No Preferred Language: Mongolian Communication Ability: Effective Visual Impairment: No Limitations Hearing Ability: Normal Top Closer Required: No Beliefs That Will Affect Care: None marital status: Current Living Situation: Other Current Living Situation Comment: Home with children current occupational status: employed 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 ENT- oropharynx clear Neck- supple, no JVD. Lungs- clear to auscultation no wheezing or crackles. Heart- regular rhythm; no murmur, no gallop. Abdomen- normal bowel sounds, soft, nontender, no distension. Extremities- no pretibial edema, no erythema seen. Neuro- alert, oriented x 3; PERRL, no facial palsy; no dysarthria; moves extremities Results & Data Results & Data Vital Signs (Past 12 Hours) Vital Signs Temp Pulse Pulse Resp BP BP Pulse Ox 11/27/23 22:40 69 15 116/73 92 11/27/23 19:59 73 14 121/66 93 11/27/23 18:00 68 16 94 11/27/23 16:00 88 15 98 11/27/23 14:46 77 18 139/86 95 11/27/23 13:35 36.6 C 80 20 132/90 100 O2 Del Method 11/27/23 22:40 Room Air 11/27/23 19:59 Room Air 11/27/23 18:00 Room Air 11/27/23 16:00 Room Air 11/27/23 14:46 Room Air 11/27/23 13:35 Room Air Diagnostic Findings Laboratory Results WBC 9.59 K/ul (4.8-10.8) 11/27/23 14:05 RBC 4.67 M/uL (4.20-5.40) 11/27/23 14:05 Hgb 14.0 g/dl (12.0-16.0) 11/27/23 14:05 Hct 42.7 % (37.0-47.0) 11/27/23 14:05 MCV 91.4 fL (80.0-100.0) 11/27/23 14:05 MCH 30.0 pg (25.0-34.0) 11/27/23 14:05 MCHC 32.8 g/dL (32.0-36.0) 11/27/23 14:05 RDW Std Deviation 41.4 fL (36.4-46.3) 11/27/23 14:05 RDW Coeff of [place] 12.4 % (11.5-14.5) 11/27/23 14:05 Plt Count 290 K/uL (130-400) 11/27/23 14:05 MPV 9.2 fL (9.4-12.4) L 11/27/23 14:05 Immature Gran % (Auto) 0.4 % 11/27/23 14:05 Neut % (Auto) 82.3 % 11/27/23 14:05 Lymph % (Auto) 13.6 % 11/27/23 14:05 [place] % (Auto) 3.4 % 11/27/23 14:05 Eos % (Auto) 0.0 % 11/27/23 14:05 Baso % (Auto) 0.3 % 11/27/23 14:05 Neut # (Auto) 7.89 K/uL (1.40-6.50) H 11/27/23 14:05 Lymph # (Auto) 1.30 K/uL (1.20-3.40) 11/27/23 14:05 [place] # (Auto) 0.33 K/uL (0.11-0.59) 11/27/23 14:05 Eos # (Auto) 0.00 K/uL (0.00-0.50) 11/27/23 14:05 Baso # (Auto) 0.03 K/uL (0.00-0.20) 11/27/23 14:05 Immature Gran # (Auto) 0.04 K/uL (0.01-0.20) 11/27/23 14:05 Sodium 138 mmol/L (136-145) 11/27/23 14:05 Potassium 4.6 mmol/L (3.5-5.1) 11/27/23 14:05 Chloride 104 mmol/L (98-107) 11/27/23 14:05 Carbon Dioxide 30 mmol/L (21-32) 11/27/23 14:05 Anion Gap 4 (3-11) 11/27/23 14:05 BUN 8 mg/dl (6-23) 11/27/23 14:05 Creatinine 0.70 mg/dl (0.6-1.2) 11/27/23 14:05 Est Cr Clr Drug Dosing 103.0 ml/min 11/27/23 14:05 Est GFR ( Amer) 128.3 ml/min 11/27/23 14:05 Est GFR (Non-Af Amer) 110.7 ml/min 11/27/23 14:05 BUN/Creatinine Ratio 11.4 (10-20) 11/27/23 14:05 Glucose 119 mg/dl (70-99(Fasting)) H 11/27/23 14:05 Calcium 9.6 mg/dl (8.6-10.3) 11/27/23 14:05 Total Bilirubin 0.4 mg/dl (0.2-1.0) 11/27/23 14:05 AST 23 U/L (13-39) 11/27/23 14:05 ALT 28 U/L (7-52) 11/27/23 14:05 Alkaline Phosphatase 60 U/L (34-104) 11/27/23 14:05 Total Protein 7.2 gm/dl (6.0-8.3) 11/27/23 14:05 Albumin 4.4 gm/dl (3.4-5.0) 11/27/23 14:05 Globulin 2.8 gm/dl (2.5-4.0) 11/27/23 14:05 Albumin/Globulin Ratio 1.6 (0.9-2) 11/27/23 14:05 HCG, Qual Negative (Negative) 11/27/23 14:05 Fluid Comment 11/27/23 18:07 CSF Appearance Clear 11/27/23 18:07 CSF Color Colorless 11/27/23 18:07 Xanthrochromic No xanthochromia 11/27/23 18:07 CSF WBC 1.1 (0-5) 11/27/23 18:07 CSF RBC 0 (0-) 11/27/23 18:07 CSF Cell Count Tube # 3 11/27/23 18:07 CSF Chemistry Tube # 1 11/27/23 18:07 CSF Glucose 66 mg/dl (40-70) 11/27/23 18:07 CSF Total Protein 36.8 mg/dl (15-45) 11/27/23 18:07 Lyme Disease IgG Ab Negative (Negative) 11/27/23 14:05 Lyme Disease IgM Ab Negative (Negative) 11/27/23 14:[address] 11/27/23 15:19 CT head/brain wo con CLINICAL HISTORY: frontal headache Technique: Contiguous axial CT images of the head were acquired from the base of the skull to the vertex without intravenous contrast administration. Images were viewed in brain, subdural and bone windows. Automated dose lowering techniques and/or adjustment according to patient size were utilized for this exam. Comparison: None available at the time of this dictation. Findings: The ventricles, basal cisterns, and cerebral sulci are normal. There is no acute intracranial hemorrhage or evidence of acute territorial infarction. Neither mass effect, shift of the midline structures, nor abnormal extra-axial fluid collections are shown. Imaged portions of the paranasal sinuses and mastoid air cells are clear. The orbits appear normal. There are no acute fractures of the calvaria or scalp swelling. Impression: No acute intracranial hemorrhage, no evidence of acute territorial infarction or other acute intracranial disease process. ACT 112: Negative or not required by law. Electronically signed by: Derrick Cochran M.D. 11/27/2023 4:[address] 11/27/23 15:19 CT sinus w con CLINICAL HISTORY: facial pain, headache, previous sinus surgery x 2 TECHNIQUE: Multidetector axial CT images through the sinuses were obtained. Coronal and sagittal reformations were also obtained. Automated dose lowering techniques and/or adjustment according to patient size were utilized for this examination. Comparison: Comparison is made to CT sinus 03/11/2023 FINDINGS: Partial opacification of the right frontal sinus seen. The orbits appear normal. There are no acute fractures of the calvaria or scalp swelling. IMPRESSION: Partial opacification of the right frontal sinus, increased from prior exam, compatible with sinusitis. ACT 112: Negative or not required by law. Electronically signed by: Derrick Cochran M.D. 11/27/2023 4:49 PM Code Status & VTE Plan VTE Prophylaxis Plan VTE Prophylaxis will be ordered: Yes
[2023-11-28] MEDS: HYDROmorphone INJ 0.5 MG/0.5 ML SYR IV PRN ×4 (00:30→15:12)
[2023-11-28] MEDS ORDERED: NON-FORMULARY MEDICATION (Iron,Carbonyl-Vitamin C [Vitron-C] 65 mg iron- 125 mg Tablet,Del PO SCH (01:41)
[2023-11-28] MEDS ORDERED: ACETAMINOPHEN 325 MG TAB PO PRN (01:41)
[2023-11-28] MEDS ORDERED: ALBUTEROL HFA 8 GM INHALER INH PRN (01:41)
[2023-11-28] MEDS ORDERED: D5W AND 1/2NSS 1,000 ML IV SCH (01:41)
[2023-11-28] MEDS: KETOROLAC TROMETHAMINE 15 MG/ML VIAL IV PRN ×2 (02:48→09:11)
[2023-11-28 06:10] LABS: Basophils # (auto) 0.03 K/uL (0.00-0.20); Basophils % (auto) 0.2 %; Hematocrit (blood only) 39.9 % (37.0-47.0); Immature Granulocytes # (auto) 0.09 K/uL (0.01-0.20); Immature Granulocytes % (auto) 0.6 %; Lymphocytes # (auto) 1.49 K/uL (1.20-3.40); Lymphocytes % (auto) 9.4 %; Mean Corpuscular Hemoglobin 29.9 pg (25.0-34.0); Mean Corpuscular Hgb Conc 32.6 g/dL (32.0-36.0); Mean Corpuscular Volume 91.7 fL (80.0-100.0); Mean Platelet Volume 9.7 fL (9.4-12.4); Monocytes # (auto) 1.02 K/uL (0.11-0.59); Monocytes % (auto) 6.4 %; Neutrophils % (auto) 83.4 %; Platelet Count 293 K/uL (130-400); RDW Coefficient of Variation 12.3 % (11.5-14.5); RDW Standard Deviation 41.1 fL (36.4-46.3); Red Blood Count 4.35 M/uL (4.20-5.40); White Blood Count 15.93 K/ul (4.8-10.8)
[2023-11-28 06:15] LABS: BUN Creatinine Ratio 17.2 (10-20); Calcium 8.5 mg/dl (8.6-10.3); Creatinine Clr Calc Pharmacy 112.7 ml/min; Est GFR (African American) 132.1 ml/min; Magnesium 2.2 mg/dl (1.7-2.4); Potassium 4.2 mmol/L (3.5-5.1)
[2023-11-28] MEDS: PANTOprazole 40 MG TAB PO SCH (08:20)
[2023-11-28] MEDS: DOCUSATE SODIUM 100 MG CAP PO SCH ×2 (08:20→20:08)
[2023-11-28] MEDS: ESCITALOPRAM OXALATE 20 MG TAB PO SCH (08:20)
[2023-11-28] MEDS: LUBIPROSTONE 8 MCG CAP PO SCH ×2 (08:20→17:26)
[2023-11-28] MEDS: FERROUS SULFATE 325 MG TAB PO SCH (08:21)
[2023-11-28] MEDS: predniSONE 10 MG TABLET PO SCH (08:21)
[2023-11-28] MEDS: ACYCLOVIR 400 MG TAB PO SCH ×2 (08:21→20:08)
[2023-11-28] MEDS: MAGNESIUM OXIDE 400 MG TAB PO SCH ×2 (08:21→20:08)
[2023-11-28] MEDS: ASCORBIC ACID 500 MG TAB PO SCH (08:21)
[2023-11-28] MEDS: ARIPIprazole 1 MG/ML ORAL SOLN 150 ML BTL PO SCH (08:22)
[2023-11-28] MEDS: FLUTICASONE PROPIONATE NA SPR 16 GM BTL SCH ×2 (08:23→20:09)
[2023-11-28] MEDS: AZELASTINE HCL 0.1% NASAL 200 SPRAYS/27,400 MCG BTL SCH ×2 (08:23→20:09)
[2023-11-28] MEDS ORDERED: SODIUM CHLORIDE 0.65% NA SOLN 45 ML (OCEAN) ONE (08:27)
[2023-11-28] MEDS: modafiniL 100 MG TAB PO SCH (08:38)
[2023-11-28] MEDS ORDERED: ARTIFICIAL TEARS OPB PRN (08:54)
[2023-11-28] MEDS ORDERED: NON-FORMULARY MEDICATION (Riboflavin (Vitamin B2) 400 mg tablet) PO SCH (09:00)
[2023-11-28] MEDS ORDERED: DOXYCYCLINE HYCLATE 100 MG CAP PO SCH (09:00)
--- NOTE | 2023-11-28 10:31 | Neurology Consultation ---
Date of Consultation November 28, 2023 Assessment & Plan (1) Intractable headache: (2) Migraine with aura: (3) Acute sinusitis: Plan Patient has a history of intermittent migraine headaches with frequent nonmigraine's headaches and sinus infections. Currently she has an acute sinusitis (increased face pain, elevated white count on admission, and CT with right frontal sinusitis worse than previous). Her headache quality is not typically migrainous today. Neurologic examination is unremarkable with no focal findings, meningeal signs, or encephalopathy. Lumbar puncture was normal as well with no signs of infection or inflammation so far. Final cultures are pending. Recommendations: 1. Continue intravenous ketorolac and IV Tylenol (alternately spaced) as this gives her relief 2. Taper off steroids as this has not helped and she has been on it since November 22 3. Discontinue doxycycline. Consider Omnicef or alternative oral antibiotic for her sinusitis. 4. Initiate decongestants 5. Avoid triptans. 6. Restarting Ajovy monthly, as an outpatient. Overall, I spent a total of 75 minutes with this case including review of records, review of CT films, direct evaluation the patient at bedside, report generation, and discussion of the case with the patient at bedside and Adrienne Harry PA-C, including differential diagnosis and treatment options. History of Present Illness Reason for Consultation: Patient is a 37-year-old, who I was asked to see at the request of Dr. Gregg, for neurologic consultation regarding refractory headache Requesting Physician: Dr. Gregg Attending Physician: Pat Reese MD History of Present Illness This patient has a history of migraine headaches followed by [facility] neurology for the last 2 years. She was first seen in our clinic in April 2022. She has a history of sinusitis and is post septoplasty correction twice (the most recent being August 2022. Prior to this she would get visual auras prior to her migraines but after this surgery she stopped having auras. She will have a headache most every day which consists of pain in her face, behind her eyes, and temples. It could get rapidly worse with pounding and throbbing accompanied by phonophobia and sometimes photophobia and nausea. Currently she takes Nurtec as needed for these severe headaches (about 4/month) which resolves them. Otherwise she is left with near daily pressure headaches. In the past topiramate made her "dumb". Verapamil gave her severe constipation. Triptans such as sumatriptan and rizatriptan pills gave her side effects and did not help the headaches. Iabs-zdu-mjrcuxs medications do not generally help and Fioricet does not help. She was most recently seen in clinic August 23, 2023. This was about a week after her of leukemia. Ajovy was initiated but she only received 1 dose (did not help much) and did not end up receiving another dose. Therefore we are uncertain whether Ajovy helps or not. This past week she has been having increased headaches with pressure in her face and behind her eyes. On November 22 she was initiated on doxycycline and prednisone by her PCP. She was admitted November 25 with significant pain. White count was elevated but the rest of the CBC and CHEM profile were unremarkable. She was not and had negative Lyme antibody titers. Lumbar puncture done on November 27 was clear and colorless without xanthochromia. There was 1 white cell and 0 red cells with a total protein of 36.8. Patient does have some neck stiffness clinically. CSF Gram stain was negative. Cultures are pending. CT scan of the head was unremarkable. CT scan of the sinuses revealed some progressive right frontal disease. An MRI of the brain back in February 2022 with and without contrast was unremarkable. Allergies Allergy/AdvReac Type Severity Reaction Status Date / Time promethazine Allergy Severe TONIC Verified 11/27/23 20:43 REACTION Home Medications Medication Instructions Recorded Confirmed Type acyclovir 400 mg tablet 400 mg PO AMHS 03/11/19 11/27/23 History magnesium oxide 400 mg (241.3 mg 400 mg PO BID 06/22/22 11/27/23 History magnesium) tablet lorazepam 0.5 mg tablet (Ativan) 0.5 mg PO BID PRN Anxiety 08/30/22 11/27/23 History modafinil 200 mg tablet 300 mg PO QAM 03/04/23 11/27/23 History fluticasone propionate 93 1 spray intranasal BID #16 mL 04/22/23 11/27/23 Rx mcg/actuation breath activated aerosol (Xhance) lamotrigine 200 mg tablet 200 mg PO HS 04/22/23 11/27/23 History escitalopram oxalate 20 mg tablet 20 mg PO QAM 05/31/23 11/27/23 History rimegepant 75 mg disintegrating 75 mg PO ONCE PRN migraine 07/26/23 11/27/23 Rx tablet (Nurtec ODT) headache #8 tabs albuterol sulfate 90 mcg/actuation 2 puff inhalation Q4H PRN 09/05/23 11/27/23 History aerosol inhaler cough,wheeze,SOB,prior exercise docusate sodium 100 mg capsule 100 mg PO BID 09/05/23 11/27/23 History (Colace) doxycycline hyclate 100 mg capsule 100 mg PO BID #14 caps 11/22/23 11/27/23 Rx prednisone 10 mg tablet 10 mg PO .COMPLEX #26 tabs 11/22/23 11/27/23 Rx Budesonide 0.6mg/Ml Conc See Rx Instructions .Route .COMPLEX 11/27/23 11/27/23 History aripiprazole 2 mg tablet 2 mg PO QAM 11/27/23 11/27/23 History azelastine 137 mcg (0.1 %) nasal 2 spray intranasal AMHS 11/27/23 11/27/23 History spray aerosol iron,carbonyl 65 mg-vitamin C 125 1 tab PO Q OTHER DAY 11/27/23 11/27/23 History mg tablet,delayed release (Vitron-C) lifitegrast 5 % eye drops in a 1 drp OPB BID 11/27/23 11/27/23 History dropperette (Xiidra) lubiprostone 24 mcg capsule 24 mcg PO BIDM 11/27/23 11/27/23 History omeprazole 20 mg capsule,delayed 20 mg PO QAM 11/27/23 11/27/23 History release riboflavin (vitamin B2) 400 mg 400 mg PO QAM 11/27/23 11/27/23 History tablet Patient History Medical History Anorexia Macromastia Acute pancreatitis PONV (postoperative nausea and vomiting) Heart palpitations HOLTOR MONITOR TEST DONE 2016/DR. DOBBINS. OCC PVCS/PACS. 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 Sarmiento History of nasal septoplasty 09/02/22-Dr. Sarmiento Hx of sinus surgery S/P bilateral breast reduction (~08/2020) Status post laparoscopic cholecystectomy History of anesthesia reaction MIGRAINES AFTER-NOT WITH RECENT SURGERY History of surgery EGG RETRIEVAL History of esophagogastroduodenoscopy (EGD) [place] teeth removed H/O laparoscopy 2013 for ovarian torsion S/P section X 2 Family History Grandfather (Maternal) Colorectal cancer Diabetes Mother Multiple sclerosis Father Bleeding disorder unknown type-had clots/IVC filter Other No family history of adverse response to anesthesia Stroke Social History Smoking Status: Never smoker Second Hand Exposure: Yes (PARENTS SMOKED); Do You Dip or Chew Tobacco: No; Hx Alcohol Use: No Hx Substance Use: No Preferred Language: Arabic Communication Ability: Effective Visual Impairment: No Limitations Hearing Ability: Normal Floral Designer Required: No Beliefs That Will Affect Care: None marital status: Current Living Situation: Other Current Living Situation Comment: Home with children current occupational status: employed 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 Other Information That Helps Us Care for You: No Feels Safe at Home: Yes Safety Concerns: Feels Safe At This Time Assistive Devices: Glasses Review of Systems Constitutional: no fever, no fatigue and no weakness Eyes: + eye pain and + photophobia; no diplopi a and no worsening vision Ear, Nose, Mouth, Throat: + facial pain; no ear pain, no tinnitus, no hearing loss, no dizziness, no snoring, no hoarseness and no dysphagia Respiratory: no cough and no dyspnea Cardiovascular: no chest pain, no palpitations and no lightheadedness Gastrointestinal: no abdominal pain, no nausea and no vomiting Genitourinary: no dysuria, no urinary frequency and no urinary incontinence Musculoskeletal: + neck pain; no back pain, no radicular pain, no joint pain and no myalgia Integumentary: no rash and no lesions Neurologic: + headache(s); no gait abnormality, no l ocalized weakness, no generalized weakness, no tingling, no numbness, no tremor(s), no abnormal movements, no abnormal speech, no confusion and no memory loss Psychiatric: no depression, no irritability, no anxiety, no difficulty concentrating, no confusion and no hallucinations Endocrine: no fatigue and no flushing Hematologic / Lymphatic: no easy bleeding and no easy bruising Allergy / Immunological: no urticaria and no problem reported Exam (Neuro) Physical Exam: The patient is right-handed. The patient is awake, alert, and attentive. Speech is normal without any aphasia or dysarthria. Mentation and thought processes are intact, with full orientation and normal fund of knowledge. Mood and affect are normal and appropriate. Appearance and grooming are normal. Short and long-term memory are intact. Pupils are 4 mm bilaterally and reactive to light. Extraocular eye muscles are intact without nystagmus. Patient was very light sensitive. Visual acuity and visual rivers seem normal grossly to confrontation. There are no deficits to sensation in the face in all 3 distributions of the fifth cranial nerve bilaterally. Corneal reflexes are positive bilaterally. Facial strength and symmetry was normal bilaterally. Hearing seems intact grossly to voice and finger rub bilaterally. Palate moves well without asymmetry. There is normal sternocleidomastoid and trapezius strength bilaterally. Tongue is midline with good strength bilaterally. Neck has a full range of motion without discomfort. There are no cervical bruits bilaterally. There are no cranial or ocular bruits. Heart is without murmur. There is a regular rhythm and rate. Cervical, thoracic, and lumbar spine are nontender to palpation. Stance sitting up in bed is quite normal. With outstretched arms there is no drift. There are no resting, postural, or action tremors. There is no ataxia with finger to nose testing. There is good facility in the hands. No other abnormal involuntary movements are noted. 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 Motor strength is 5/5 diffusely in the legs bilaterally including hip flexors, quadriceps, hamstrings, gastrocnemius, tibialis anterior, tibialis posterior, and Peroneii muscles bilaterally. Toe extensors are normal and there is good bulk in the extensor digitorum brevis muscles bilaterally. The limbs have good tone without rigidity or spasticity. There is no atrophy noted in the muscles. Muscle bulk is normal, there is no tenderness to palpation, no myotonia to percussion, and no fasciculations seen. Sensory examination is intact to touch and pin throughout all 4 limbs diffusely. Reflexes are 2/4 in the biceps, triceps, brachioradialis, quadriceps, and Achilles tendons bilaterally. Toes are downgoing with plantar stimulation bilaterally. Peripheral pulses are present and of normal quality distally in all 4 limbs. There is no peripheral edema noted in the limbs. Results & Data Vital Signs (Past 12 Hours) Vital Signs Temp Pulse Pulse Resp BP BP Pulse Ox 11/28/23 07:28 36.7 C 61 16 107/69 100 11/28/23 01:15 11/28/23 01:15 36.4 C L 71 16 113/72 100 11/27/23 22:40 69 15 116/73 92 O2 Del Method 11/28/23 07:28 Room Air 11/28/23 01:15 Room Air 11/28/23 01:15 Room Air 11/27/23 22:40 Room Air PG Care Time/CCT Total # of Minutes Spent Total Time Spent with Patient: Total time spent is greater than 50% in coordination of care (as documented) at patient's floor/unit and/or counseling patient: Coding Level of Care Code 76444 OFFICE CONSULT LVL M Diagnoses Intractable headache R51.9 Migraine with aura G43.109 Acute sinusitis J01.90 Time Spent (min) 75 Comment Add modifiers as able.
--- NOTE | 2023-11-28 10:58 | Hospitalist Progress Note ---
Date of Service November 28, 2023 Assessment & Plan (1) Intractable headache: Plan: 37-year-old female with past medical history significant for chronic maxillary sinusitis, nonallergic rhinitis, exercise-induced bronchospasm, GERD, irritable bowel syndrome, fibromyalgia, chronic non-intractable headaches, iron deficiency anemia, herpes simplex type I infection, attention deficit disorder without hyperactivity, anxiety state, anorexia nervosa, mild depression, history of pancreatitis comes with intractable headache since last 2 days. Intractable headache Acute Sinusitis History of migraines --CT head R maxillary sinusitis Received Dilaudid, Toradol, Decadron, Benadryl, Reglan, Depakote but not getting better in ED Discussed with Neurologist Dr. Summers - who feels less likely migraine as more a/c sinusitis will schedule APAP, discussed with nurse to also alternate toradol limit use of Dilaudid as much as possible will schedule pseudophed Discussed with ENT Dr. Krishna who reviewed images - recommends outpatient ENT follow up Will observe in the hospital d/c IVF as pt is hydrating well with large water cup at bedside Taper off prednisone D/C doxycycline in favor or Cefdinir, add probiotic check cbc, bmp, tsh, b12 in a.m. IBS On lubiprostone Depression Attention deficit disorder Continue home medications DVT prophylaxis SCDs for now Disposition Medical floor Full code Dispo: pt to remain admitted, not yet medically stable for d/c, likely ready in next 1-2 days Pt was seen and examined in collaboration with Dr. Reese, please see addendum A total of 57 minutes was spent coordinating, documenting, and providing care for this patient excluding time spent in the performance of separately billed services. This included personally viewing all current laboratories and imaging studies, medication reconciliation, outpatient chart review, and discussion with specialists. Admission and Anticipated Discharge Date Admission Date: November 27, 2023 Supervising Physician Co-Signing Physician Notes I have seen and discussed the case with the collaborating MIQUEL. I agree with the above H&P. I have reviewed and confirmed the patients medical history, the findings on physical examination, and the patients diagnosis and treatment plan with Piero LAFLEUR and agree with the information documented. Plan as above Subjective Patient was seen and examined in room 324. Follow-up acute sinusitis and intractable facial pain. This is a pleasant 37-year-old female. She is currently hospitalized for intractable facial pain. She states that symptoms started on Tuesday specifically in her maxillary, frontal sinuses and temporal region. She has history of migraines however this presented differently. She states her pain has waxed and waned and she has had periods of time where she has felt well enough to even exercise. She has tried [id number] Nurtec and Motrin without relief. She also tried [id number] Sudafed without relief as well. She has prior history of sinus surgery in August 2022. She follows with ENT regularly due to chronic sinusitis. Prior to hospitalization she was placed on oral doxycycline as well as Medrol Dosepak and prednisone taper without much relief. Due to intractable pain, photophobia, phonophobia and nausea she presented to ED. Unfortunately she lost her in August and cares for her 2 children at home. 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 currently she denies any nausea, vomiting, abdominal pain, fever, chills, sweats, chest pain or shortness of breath. She continues to have facial pain although less severe. This morning she had relief with IV Dilaudid. Review of Systems Review of Systems: All systems reviewed & are unremarkable except as noted in HPI & below Physical Exam Physical Exam: Gen: WD/WN, NAD, does appear in slight discomfort, A&O x3 HEENT: Normocephalic, atraumatic, conjunctivae moist, sclerae anicteric, mucous membranes moist. Lung: Clear to Auscultation bilaterally, no wheezes/rales/rhonchi Heart: Regular rate, regular rhythm, no murmurs, rubs, or gallops Abdomen: Soft, NT, ND +BS x 4 Extremities: No edema Skin: Warm, no rash, negative turgor. Results & Data Results & Data Vital Signs (Past 12 Hours) Vital Signs Temp Pulse Pulse Resp BP BP Pulse Ox 11/28/23 07:28 36.7 C 61 16 107/69 100 11/28/23 01:15 11/28/23 01:15 36.4 C L 71 16 113/72 100 O2 Del Method 11/28/23 07:28 Room Air 11/28/23 01:15 Room Air 11/28/23 01:15 Room Air Laboratory Results I have independently reviewed and interpreted patient's labs, cbc, bmp, mag Diagnostic Findings Head CT 11/27/23 15:19 CT head/brain wo con CLINICAL HISTORY: frontal headache Technique: Contiguous axial CT images of the head were acquired from the base of the skull to the vertex without intravenous contrast administration. Images were viewed in brain, subdural and bone windows. Automated dose lowering techniques and/or adjustment according to patient size were utilized for this exam. Comparison: None available at the time of this dictation. Findings: The ventricles, basal cisterns, and cerebral sulci are normal. There is no acute intracranial hemorrhage or evidence of acute territorial infarction. Neither mass effect, shift of the midline structures, nor abnormal extra-axial fluid collections are shown. Imaged portions of the paranasal sinuses and mastoid air cells are clear. The orbits appear normal. There are no acute fractures of the calvaria or scalp swelling. Impression: No acute intracranial hemorrhage, no evidence of acute territorial infarction or other acute intracranial disease process. ACT 112: Negative or not required by law. Electronically signed by: Derrick Cochran M.D. 11/27/2023 4:[address] 11/27/23 15:19 CT sinus w con CLINICAL HISTORY: facial pain, headache, previous sinus surgery x 2 TECHNIQUE: Multidetector axial CT images through the sinuses were obtained. Coronal and sagittal reformations were also obtained. Automated dose lowering techniques and/or adjustment according to patient size were utilized for this examination. Comparison: Comparison is made to CT sinus 03/11/2023 FINDINGS: Partial opacification of the right frontal sinus seen. The orbits appear normal. There are no acute fractures of the calvaria or scalp swelling. IMPRESSION: Partial opacification of the right frontal sinus, increased from prior exam, compatible with sinusitis. ACT 112: Negative or not required by law. Electronically signed by: Derrick Cochran M.D. 11/27/2023 4:49 PM Medications Administered Current Inpatient Medications Acetaminophen (Acetaminophen 325 Mg Tab) 650 mg PO QID ELVA Stop: 12/28/23 11:59 Acyclovir (Acyclovir 400 Mg Tab) 400 mg PO BID ELVA Stop: 12/28/23 08:59 Last Admin: 11/28/23 08:21 Dose: 400 mg Albuterol (Albuterol Hfa 8 Gm Inhaler) 2 puffs INH Q4H PRN PRN Reason: cough,wheeze,SOB,prior exercis Stop: 12/28/23 01:40 Aripiprazole (Aripiprazole 1 Mg/Ml Oral Soln 150 Ml Btl) 2 mg PO QAM [facility] Stop: 12/28/23 08:59 Last Admin: 11/28/23 08:22 Dose: 2 mg Artificial Tears (Artificial Tears) 1 drops OPB QID PRN PRN Reason: Dryness Stop: 12/28/23 08:53 Ascorbic Acid (Ascorbic Acid 500 Mg Tab) 250 mg PO Q48H [facility] Stop: 12/28/23 08:59 Last Admin: 11/28/23 08:21 Dose: 250 mg Azelastine HCl (Azelastine Hcl 0.1% Nasal 200 Sprays/27,400 Mcg Btl) 2 sprays NA BID [facility] Stop: 12/28/23 08:59 Last Admin: 11/28/23 08:23 Dose: 2 sprays Cefdinir (Cefdinir 300 Mg Cap) 300 mg PO BID [facility]; Protocol Stop: 12/08/23 10:44 Docusate Sodium (Docusate Sodium 100 Mg Cap) 100 mg PO BID [facility] Stop: 12/28/23 08:59 Last Admin: 11/28/23 08:20 Dose: 100 mg Escitalopram Oxalate (Escitalopram Oxalate 20 Mg Tab) 20 mg PO QAM [facility] Stop: 12/28/23 08:59 Last Admin: 11/28/23 08:20 Dose: 20 mg Ferrous Sulfate (Ferrous Sulfate 325 Mg Tab) 325 mg PO Q48H [facility] Stop: 12/28/23 08:59 Last Admin: 11/28/23 08:21 Dose: 325 mg Fluticasone Propionate (Fluticasone Propionate Na Spr 16 Gm Btl) 1 sprays NA BID [facility] Stop: 12/28/23 08:59 Last Admin: 11/28/23 08:23 Dose: 1 sprays Hydromorphone HCl (Hydromorphone Inj 0.5 Mg/0.5 Ml Syr) 0.5 mg IV Q4H PRN PRN Reason: Severe Pain (Scale 7, 8, 9,10) Stop: 12/12/23 01:40 Dextrose/Sodium Chloride (D5w And 1/2nss) 1,000 mls @ 80 mls/hr IV .[id number] [facility] Stop: 11/28/23 14:10 Last Admin: 11/28/23 02:46 Dose: 80 mls/hr Ketorolac Tromethamine (Ketorolac 30 Mg/Ml Vial) 30 mg IV Q6H PRN PRN Reason: Pain Stop: 12/03/23 15:34 Lamotrigine (Lamotrigine 100 Mg Tab) 200 mg PO HS [facility]; Protocol Stop: 12/28/23 20:59 Lorazepam (Lorazepam 0.5 Mg Tab) 0.5 mg PO BID PRN PRN Reason: Anxiety Stop: 12/28/23 01:40 Lubiprostone (Lubiprostone 8 Mcg Cap) 24 mcg PO BIDM [facility] Stop: 12/28/23 07:59 Last Admin: 11/28/23 08:20 Dose: 24 mcg Magnesium Oxide (Magnesium Oxide 400 Mg Tab) 400 mg PO BID [facility] Stop: 12/28/23 08:59 Last Admin: 11/28/23 08:21 Dose: 400 mg Miscellaneous (Lifitegrast [Xiidra]: Order Awaiting Action) 1 each N/A QS [facility] Stop: 12/28/23 07:59 Last Admin: 11/28/23 08:20 Dose: Not Given Miscellaneous (Rimegepant [Nurtec Odt]: Order Awaiting Action) 1 each N/A QS [facility] Stop: 12/28/23 07:59 Last Admin: 11/28/23 08:20 Dose: Not Given Modafinil (Modafinil 100 Mg Tab) [facility] [place]: 12/28/23 08:59 Last Admin: 11/28/23 08:38 Dose: 300 mg Pantoprazole Sodium (Pantoprazole 40 Mg Tab) [facility] [place] Stop: 12/28/23 08:59 Last Admin: 11/28/23 08:20 Dose: 40 mg Prednisone (Prednisone 10 Mg Tablet) 20 mg PO DAILY [facility]; Taper Stop: 12/01/23 08:59 Last Admin: 11/28/23 08:21 Dose: 20 mg Pseudoephedrine HCl (Pseudoephedrine Hcl 30 Mg Tab) 30 mg PO Q8H [facility] Stop: 12/28/23 10:34
[2023-11-28] MEDS: CEFDINIR 300 MG CAP PO SCH ×2 (11:31→20:09)
[2023-11-28] MEDS: PSEUDOEPHEDRINE HCL 30 MG TAB PO SCH ×2 (11:31→18:28)
[2023-11-28] MEDS: SACCHAROMYCES BOULARDII 250 MG CAP PO SCH (11:45)
[2023-11-28] MEDS ORDERED: ACETAMINOPHEN 325 MG TAB PO SCH (12:00)
[2023-11-28] MEDS ORDERED: KETOROLAC 30 MG/ML VIAL IV PRN ×2 (14:15→15:35)
[2023-11-28] MEDS: ACETAMINOPHEN 1,000 MG/100 ML VIAL IV SCH (17:26)
[2023-11-28] MEDS: POLYETHYLENE (MIRALAX) 17 GM PACK PO SCH (18:27)
[2023-11-28] MEDS: lamoTRIgine 100 MG TAB PO SCH (20:08)
[2023-11-28] MEDS: oxyCODONE HCL IR 5 MG TAB (IMMEDIATE RELEASE) PO PRN (20:38)
[2023-11-28] MEDS ORDERED: RIMEGEPANT 75 MG EXT PRN (20:49)
[2023-11-29] MEDS: ACETAMINOPHEN 1,000 MG/100 ML VIAL IV SCH ×3 (01:42→17:36)
[2023-11-29] MEDS: PSEUDOEPHEDRINE HCL 30 MG TAB PO SCH ×3 (01:44→17:37)
[2023-11-29] MEDS: KETOROLAC 30 MG/ML VIAL IV PRN ×3 (01:46→15:15)
[2023-11-29] MEDS: oxyCODONE HCL IR 5 MG TAB (IMMEDIATE RELEASE) PO PRN ×3 (06:08→19:31)
[2023-11-29 06:19] LABS: Basophils # (auto) 0.03 K/uL (0.00-0.20); Basophils % (auto) 0.3 %; Eosinophils # (auto) 0.06 K/uL (0.00-0.50); Eosinophils % (auto) 0.6 %; Hematocrit (blood only) 38.5 % (37.0-47.0); Hemoglobin 12.7 g/dl (12.0-16.0); Immature Granulocytes # (auto) 0.05 K/uL (0.01-0.20); Immature Granulocytes % (auto) 0.5 %; Lymphocytes # (auto) 3.56 K/uL (1.20-3.40); Lymphocytes % (auto) 34.8 %; Mean Corpuscular Hemoglobin 30.1 pg (25.0-34.0); Mean Corpuscular Volume 91.2 fL (80.0-100.0); Mean Platelet Volume 9.8 fL (9.4-12.4); Monocytes # (auto) 0.76 K/uL (0.11-0.59); Monocytes % (auto) 7.4 %; Neutrophils # (auto) 5.76 K/uL (1.40-6.50); Neutrophils % (auto) 56.4 %; Platelet Count 241 K/uL (130-400); RDW Coefficient of Variation 12.5 % (11.5-14.5); RDW Standard Deviation 41.7 fL (36.4-46.3); Red Blood Count 4.22 M/uL (4.20-5.40); White Blood Count 10.22 K/ul (4.8-10.8)
[2023-11-29 06:37] LABS: BUN Creatinine Ratio 18.8 (10-20); Creatinine Clr Calc Pharmacy 112.7 ml/min; Est GFR (African American) 132.1 ml/min; Potassium 4.3 mmol/L (3.5-5.1)
[2023-11-29 06:53] LABS: Thyroid Stimulating Hormone 1.173 uIu/ml (0.300-4.500)
[2023-11-29] MEDS: POLYETHYLENE (MIRALAX) 17 GM PACK PO SCH (07:58)
[2023-11-29] MEDS: HYDROmorphone INJ 0.5 MG/0.5 ML SYR IV PRN (08:29)
[2023-11-29] MEDS: FLUTICASONE PROPIONATE NA SPR 16 GM BTL SCH ×2 (08:34→20:21)
[2023-11-29] MEDS: AZELASTINE HCL 0.1% NASAL 200 SPRAYS/27,400 MCG BTL SCH ×2 (08:35→20:21)
[2023-11-29] MEDS: predniSONE 10 MG TABLET PO SCH (09:35)
[2023-11-29] MEDS: LUBIPROSTONE 8 MCG CAP PO SCH ×2 (09:37→17:35)
[2023-11-29] MEDS: ESCITALOPRAM OXALATE 20 MG TAB PO SCH (09:37)
[2023-11-29] MEDS: PANTOprazole 40 MG TAB PO SCH (09:37)
[2023-11-29] MEDS: SACCHAROMYCES BOULARDII 250 MG CAP PO SCH (09:37)
[2023-11-29] MEDS: CEFDINIR 300 MG CAP PO SCH ×2 (09:38→20:21)
[2023-11-29] MEDS: DOCUSATE SODIUM 100 MG CAP PO SCH ×2 (09:38→20:21)
[2023-11-29] MEDS: ACYCLOVIR 400 MG TAB PO SCH ×2 (09:38→20:21)
[2023-11-29] MEDS: ARIPIprazole 1 MG/ML ORAL SOLN 150 ML BTL PO SCH (09:38)
[2023-11-29] MEDS: MAGNESIUM OXIDE 400 MG TAB PO SCH ×2 (09:38→20:21)
[2023-11-29] MEDS: modafiniL 100 MG TAB PO SCH (09:45)
[2023-11-29] MEDS: LORazepam 0.5 MG TAB PO PRN (10:22)
--- NOTE | 2023-11-29 10:33 | Neurology Progress Note ---
Date of Service November 29, 2023 Assessment & Plan (1) Intractable headache: (2) Migraine with aura: (3) Acute sinusitis: Plan Patient has a history of intermittent migraine headaches with frequent nonmigraine's headaches and sinus infections. Currently she has an acute sinusitis (increased face pain, elevated white count on admission, and CT with right frontal sinusitis worse than previous). Her intractable headache is not typical for a migraine. She was doing much better yesterday but today is worse again. Neurologic examination is unremarkable with no focal findings, meningeal signs, or encephalopathy. Lumbar puncture was normal as well with no signs of infec tion or inflammation. Recommendations: 1. Continue intravenous ketorolac and IV Tylenol (alternately spaced) as this gives her relief 2. Consider 250 mg IV Solu-Medrol 1 time 3. Continue Omnicef p.o. 4. Continue decongestants 5. Avoid triptans. Consider 500 mg IV Depakote 1 time. Avoid Zyprexa (she is already on Abilify). 6. Restarting Ajovy monthly, as an outpatient. Overall, I spent a total of 35 minutes with this case including review of records, direct evaluation the patient at bedside, report generation, and discussion of the case with the patient at bedside and Adrienne Harry PA-C, including differential diagnosis and treatment options. Admission and Anticipated Discharge Date Admission Date: November 27, 2023 Subjective Patient tells me she was doing much better yesterday afternoon and evening extending through overnight (pain average 4 out of 10). The medications did seem to help. This morning, however, around 0600 headache became worse and despite multiple different treatments it is still high significant pressure at the bridge of her nose and behind her eyes. Cough makes the headache much worse. At 1000 this morning, her headache pain is 8 out of 10. Blood pressure is 111/72 and she is afebrile. CBC and CHEM profile were unremarkable. TSH and B12 were normal. CSF cultures showed no growth (final). Results & Data Vital Signs (Past 12 Hours) Vital Signs Temp Pulse Resp BP BP Pulse Ox O2 Del Method 11/29/23 07:36 36.6 C 76 16 111/72 98 Room Air 11/28/23 23:39 36.8 C 68 16 95/85 L 96 Room Air Exam (Neuro) Physical Exam: The patient is awake and alert. Mood is somewhat down and she is tearful because of her persistent headache this morning but her affect is appropriate. Speech is without aphasia or dysarthria and thought processes are quite intact. Extraocular eye muscles are intact without nystagmus. Pupils are 4 mm bilaterally and reactive to light. There is no facial droop. Tongue is midline. Coordination and strength is normal in the arms and legs. Stance sitting up is normal. Neck has a good range of motion but it does give her some pain when she flexes. PG Care Time/CCT Total # of Minutes Spent Total Time Spent with Patient: Total time spent is greater than 50% in coordination of care (as documented) at patient's floor/unit and/or counseling patient: Coding Level of Care Code 52415 SUB INP/OBS CARE 2/35MIN Diagnoses Intractable headache R51.9 Migraine with aura G43.109 Acute sinusitis J01.90 Time Spent (min) 35
[2023-11-29] MEDS ORDERED: VALPROATE SOD 500 MG in DEXTROSE 5% 50 ML IV ONE (10:45)
[2023-11-29] MEDS ORDERED: GADOBUTROL 65ML VIAL IV ONE (12:40)
[2023-11-29] MEDS ORDERED: methylPREDNISolone 250mg in D5W 100mL IV ONE (13:00)
[2023-11-29] MEDS ORDERED: methylPREDNISolone 250 MG in SYRINGE 0 ML IV ONE (13:00)
--- NOTE | 2023-11-29 14:08 | Hospitalist Progress Note ---
Date of Service November 29, 2023 Assessment & Plan (1) Intractable headache: Plan: 37-year-old female with past medical history significant for chronic maxillary sinusitis, nonallergic rhinitis, exercise-induced bronchospasm, GERD, irritable bowel syndrome, fibromyalgia, chronic non-intractable headaches, iron deficiency anemia, herpes simplex type I infection, attention deficit disorder without hyperactivity, anxiety state, anorexia nervosa, mild depression, history of pancreatitis comes with intractable headache since last 2 days. Intractable headache Acute Sinusitis History of migraines --CT head R maxillary sinusitis Received Dilaudid, Toradol, Decadron, Benadryl, Reglan, Depakote but not getting better in ED Discussed with Neurologist Dr. Summers - who feels less likely migraine as more a/c sinusitis will schedule APAP, discussed with nurse to also alternate toradol limit use of Dilaudid as much as possible, OXY IR added for improved relief will schedule pseudophed Discussed with ENT Dr. Krishna who reviewed images - recommends outpatient ENT follow up d/c IVF as pt is hydrating well with large water cup at bedside Taper off prednisone D/C doxycycline in favor or Cefdinir, add probiotic 11/29 - Discussed with Dr. Summers - will obtain MRI brain, give IV depakote 500mg IV x 1; IV soludmedrol 250mg IV x 1, will also give Ativan for acute anxiety IBS On lubiprostone Depression Attention deficit disorder Continue home medications DVT prophylaxis SCDs for now Disposition Medical floor Full code Dispo: pt to remain admitted, not yet medically stable for d/c, likely ready in next 1-2 days Pt was seen and examined in collaboration with Dr. Reese, please see addendum A total of 56 minutes was spent coordinating, documenting, and providing care for this patient excluding time spent in the performance of separately billed services. This included personally viewing all current laboratories and imaging studies, medication reconciliation, outpatient chart review, and discussion with specialists. Admission and Anticipated Discharge Date Admission Date: November 27, 2023 Supervising Physician Co-Signing Physician Notes I have seen and discussed the case with the collaborating MIQUEL. I agree with the above H&P. I have reviewed and confirmed the patients medical history, the findings on physical examination, and the patients diagnosis and treatment plan with Piero LAFLEUR and agree with the information documented. In short, Ms. Mukherjee is a 37 year old woman with intractable headache. Evaluated patient this afternoon after does of solumedrol and depakote--notes quite a bit of improvement, but denies total resolution. Neurology following--appreciate continued reommendations. Plan as above I spent a total of 35 minutes coordinating, documenting, and providing care for this patient excluding time spent in the performance of separately billed services. All of the aforementioned completed outside of collaborating with the assigned advanced practitioner for a full treatment plan. Subjective Patient was seen and examined in room 324. Follow-up acute sinusitis and intractable facial pain. She states she feels, "terrible today." Her symptoms started abruptly at 6 AM. She fell yesterday afternoon she started doing well, and then feels that she had too much of a gap between medications. She has significant and intense pressure in her facial, forehead and temporal region. She describes as 9 out of 10. She is very frustrated that she is not getting any improvement or relief despite multiple efforts. She is also very anxious with being away from home and her children. She denies any current photophobia, photophobia, nausea, vomiting, change in vision, tinnitus, lightheadedness or dizziness. She continues to push fluids. She feels the addition of oxycodone did help improve her pain some. Review of Systems Review of Systems: All systems reviewed & are unremarkable except as noted in HPI & below Physical Exam Physical Exam: Gen: WD/WN, NAD, appears in pain, anxious, A&O x3 HEENT: Normocephalic, atraumatic, conjunctivae moist, sclerae anicteric, mucous membranes moist. +pain to palpation in frontal/maxillary sinuses Lung: Clear to Auscultation bilaterally, no wheezes/rales/rhonchi Heart: Regular rate, regular rhythm, no murmurs, rubs, or gallops Abdomen: Soft, NT, ND +BS x 4 Extremities: No edema Skin: Warm, no rash, negative turgor. Results & Data Results & Data Vital Signs (Past 12 Hours) Vital Signs Temp Pulse Resp BP Pulse Ox O2 Del Method 11/29/23 07:36 36.6 C 76 16 111/72 98 Room Air Laboratory Results I have independently reviewed and interpreted patient's admitting including CBC, BMP, b12,TSH Medications Administered Current Inpatient Medications Acyclovir (Acyclovir 400 Mg Tab) 400 mg PO BID [facility] Stop: 12/28/23 08:59 Last Admin: 11/29/23 09:38 Dose: 400 mg Albuterol (Albuterol Hfa 8 Gm Inhaler) 2 puffs INH Q4H PRN PRN Reason: cough,wheeze,SOB,prior exercis Stop: 12/28/23 01:40 Aripiprazole (Aripiprazole 1 Mg/Ml Oral Soln 150 Ml Btl) 2 mg PO QAM [facility] Stop: 12/28/23 08:59 Last Admin: 11/29/23 09:38 Dose: 2 mg Artificial Tears (Artificial Tears) 1 drops OPB QID PRN PRN Reason: Dryness Stop: 12/28/23 08:53 Ascorbic Acid (Ascorbic Acid 500 Mg Tab) 250 mg PO Q48H [facility] Stop: 12/28/23 08:59 Last Admin: 11/28/23 08:21 Dose: 250 mg Azelastine HCl (Azelastine Hcl 0.1% Nasal 200 Sprays/27,400 Mcg Btl) 2 sprays NA BID [facility] Stop: 12/28/23 08:59 Last Admin: 11/29/23 08:35 Dose: 2 sprays Cefdinir (Cefdinir 300 Mg Cap) 300 mg PO BID [facility]; Protocol Stop: 12/08/23 10:44 Last Admin: 11/29/23 09:38 Dose: 300 mg Docusate Sodium (Docusate Sodium 100 Mg Cap) 100 mg PO BID [facility] Stop: 12/28/23 08:59 Last Admin: 11/29/23 09:38 Dose: 100 mg Escitalopram Oxalate (Escitalopram Oxalate 20 Mg Tab) 20 mg PO QAM [facility] Stop: 12/28/23 08:59 Last Admin: 11/29/23 09:37 Dose: 20 mg Ferrous Sulfate (Ferrous Sulfate 325 Mg Tab) 325 mg PO Q48H [facility] Stop: 12/28/23 08:59 Last Admin: 11/28/23 08:21 Dose: 325 mg Fluticasone Propionate (Fluticasone Propionate Na Spr 16 Gm Btl) 1 sprays NA BID [facility] Stop: 12/28/23 08:59 Last Admin: 11/29/23 08:34 Dose: 1 sprays Hydromorphone HCl (Hydromorphone Inj 0.5 Mg/0.5 Ml Syr) 0.5 mg IV Q4H PRN PRN Reason: Severe Pain (Scale 7, 8, 9,10) Stop: 12/12/23 01:40 Last Admin: 11/29/23 08:29 Dose: 0.5 mg Acetaminophen (Ofirmev) 1,000 mg in 100 mls @ 400 mls/hr IV Q8H [facility] Stop: 12/01/23 16:59 Last Infusion: 11/29/23 09:48 Dose: Infused Ketorolac Tromethamine (Ketorolac 30 Mg/Ml Vial) 30 mg IV Q6H PRN PRN Reason: Mild Pain (Scale 1, 2, 3) Stop: 12/03/23 14:14 Last Admin: 11/29/23 07:48 Dose: 30 mg Lamotrigine (Lamotrigine 100 Mg Tab) 200 mg PO HS [facility]; Protocol Stop: 12/28/23 20:59 Last Admin: 11/28/23 20:08 Dose: 200 mg Lorazepam (Lorazepam 0.5 Mg Tab) 0.5 mg PO BID PRN PRN Reason: Anxiety Stop: 12/28/23 01:40 Last Admin: 11/29/23 10:22 Dose: 0.5 mg Lubiprostone (Lubiprostone 8 Mcg Cap) 24 mcg PO BIDM [facility] Stop: 12/28/23 07:59 Last Admin: 11/29/23 09:37 Dose: 24 mcg Magnesium Oxide (Magnesium Oxide 400 Mg Tab) 400 mg PO BID [facility] Stop: 12/28/23 08:59 Last Admin: 11/29/23 09:38 Dose: 400 mg Miscellaneous (Lifitegrast [Xiidra]: Order Awaiting Action) 1 each N/A QS [facility] Stop: 12/28/23 07:59 Last Admin: 11/29/23 07:54 Dose: Not Given Modafinil (Modafinil 100 Mg Tab) 300 mg PO QAM [facility] Stop: 12/28/23 08:59 Last Admin: 11/29/23 09:45 Dose: 300 mg Rimegepant [Nurtec Odt] 75 Mg - Patient 's Own Med 1 each EXT DAILY PRN PRN Reason: Migraine Headache Stop: 12/28/23 20:48 Last Admin: 11/29/23 07:55 Dose: 1 each Oxycodone HCl (Oxycodone Hcl Ir 5 Mg Tab (Immediate Release)) 5 mg PO Q6H PRN PRN Reason: Moderate Pain (Scale 4, 5, 6) Stop: 12/12/23 15:26 Last Admin: 11/29/23 12:08 Dose: 5 mg Pantoprazole Sodium (Pantoprazole 40 Mg Tab) 40 mg PO QAM [facility] Stop: 12/28/23 08:59 Last Admin: 11/29/23 09:37 Dose: 40 mg Polyethylene Glycol (Polyethylene (Miralax) 17 Gm Pack) 17 gm PO DAILY [facility] Stop: 12/28/23 17:59 Last Admin: 11/29/23 07:58 Dose: 17 gm Prednisone (Prednisone 10 Mg Tablet) 10 mg PO DAILY [facility]; Taper Stop: 12/01/23 08:59 Last Admin: 11/29/23 09:35 Dose: 10 mg Pseudoephedrine HCl (Pseudoephedrine Hcl 30 Mg Tab) 30 mg PO Q8H [facility] Stop: 12/28/23 10:34 Last Admin: 11/29/23 10:19 Dose: 30 mg Saccharomyces Boulardii (Saccharomyces Boulardii 250 Mg Cap) 250 mg PO DAILY [facility] Stop: 12/28/23 11:14 Last Admin: 11/29/23 09:37 Dose: 250 mg
--- NOTE | 2023-11-29 16:24 | Magnetic Resonance Report ---
MR brain wo/w con HISTORY: 37 years-old Female intractable headache Acute headache with sinus pressure. COMPARISON: Head CT and CT sinus studies 11/27/2023. TECHNIQUE: Multiplanar and multisequence MRI of the brain was obtained with and without the use of IV contrast. FINDINGS: No restricted diffusion. The midline structures appear unremarkable. There is no acute intracranial h emorrhage, midline shift, abnormal extra-axial collection, hydrocephalus or intra-axial mass. No path ologic blooming artifact. Normal volume and signal characteristics of the brain parenchyma. Cerebral venous sinuses and major arterial flow voids appear patent. Mastoid air cells are clear. Min imal mucosal thickening of the paranasal sinuses with chronic left maxillary volume loss, bilateral m axillary antrostomy and ethmoidectomy. Mild leftward bowing and spurring of the nasal septum. No abno rmal enhancement. IMPRESSION: 1. No acute intracranial abnormality. 2. No abnormal enhancement. 3. Minimal mucosal thickening of the paranasal sinuses with chronic postoperative findings as above. ACT 112: Negative or not required by law. The above report was generated using voice recognition software. It may contain grammatical, syntax o r spelling errors. Dictated: 11/29/2023 12:53 PM Transcribed: 11/29/2023 1:10 PM Jasen [id number] Electronically signed by: Jarod Abrams M.D. 11/29/2023 4:22 PM
[2023-11-29] MEDS: lamoTRIgine 100 MG TAB PO SCH (20:21)
[2023-11-30] MEDS: ACETAMINOPHEN 1,000 MG/100 ML VIAL IV SCH ×3 (01:36→17:43)
[2023-11-30] MEDS: PSEUDOEPHEDRINE HCL 30 MG TAB PO SCH ×3 (01:38→17:50)
[2023-11-30] MEDS: KETOROLAC 30 MG/ML VIAL IV PRN ×2 (01:53→08:04)
[2023-11-30] MEDS: oxyCODONE HCL IR 5 MG TAB (IMMEDIATE RELEASE) PO PRN ×2 (06:45→18:46)
[2023-11-30] MEDS: POLYETHYLENE (MIRALAX) 17 GM PACK PO SCH ×2 (08:10→17:50)
[2023-11-30] MEDS ORDERED: bisacodyL 5 MG TABEC PO ONE (08:53)
[2023-11-30] MEDS: HYDROmorphone INJ 0.5 MG/0.5 ML SYR IV PRN (08:54)
[2023-11-30] MEDS ORDERED: diazePAM 2 MG TABLET PO ONE (08:55)
[2023-11-30] MEDS ORDERED: FAMOTIDINE 20 MG TAB PO PRN (08:57)
[2023-11-30] MEDS: AZELASTINE HCL 0.1% NASAL 200 SPRAYS/27,400 MCG BTL SCH ×2 (08:58→21:04)
[2023-11-30] MEDS: FLUTICASONE PROPIONATE NA SPR 16 GM BTL SCH ×2 (08:59→21:04)
[2023-11-30] MEDS: ASCORBIC ACID 500 MG TAB PO SCH (09:18)
[2023-11-30] MEDS: FERROUS SULFATE 325 MG TAB PO SCH (09:18)
[2023-11-30] MEDS: modafiniL 100 MG TAB PO SCH (09:19)
[2023-11-30] MEDS: LUBIPROSTONE 8 MCG CAP PO SCH ×2 (09:19→16:54)
[2023-11-30] MEDS: predniSONE 10 MG TABLET PO SCH (09:19)
[2023-11-30] MEDS: MAGNESIUM OXIDE 400 MG TAB PO SCH ×2 (09:19→21:06)
[2023-11-30] MEDS: DOCUSATE SODIUM 100 MG CAP PO SCH ×2 (09:19→21:05)
[2023-11-30] MEDS: SACCHAROMYCES BOULARDII 250 MG CAP PO SCH (09:19)
[2023-11-30] MEDS: ESCITALOPRAM OXALATE 20 MG TAB PO SCH (09:20)
[2023-11-30] MEDS: CEFDINIR 300 MG CAP PO SCH (09:20)
[2023-11-30] MEDS: ACYCLOVIR 400 MG TAB PO SCH ×2 (09:20→21:07)
[2023-11-30] MEDS: PANTOprazole 40 MG TAB PO SCH (09:20)
[2023-11-30] MEDS: ARIPIprazole 1 MG/ML ORAL SOLN 150 ML BTL PO SCH (09:20)
--- NOTE | 2023-11-30 09:41 | Neurology Progress Note ---
Date of Service November 30, 2023 Assessment & Plan (1) Intractable headache: (2) Migraine with aura: (3) Acute sinusitis: Plan Patient has a history of intermittent migraine headaches with frequent nonmigraine's headaches and sinus infections. Over the last 2 days, she has had early childhood coordinator onset of severe pressure pain (without flushing, tearing from her eyes, or face pain). The pain is centered bifrontally and the bridge of her nose. Her neurologic examination and mental status is otherwise unremarkable. MRI of the brain and LP have been unremarkable. Laboratory studies have been unremarkable as well. Whereas I was convinced that she had an acute sinusitis on admission, MRI of the brain shows no sinusitis now (frontal sinusitis has cleared since the CAT scan) and I am more concerned that this is a mixed intractable headache with migrainous features. A cluster migraine cannot be excluded. The IV dose of steroid and Depakote gave her significant relief yesterday of the lasting nature up until this morning. Recommendations: 1. Intravenous ketorolac and IV Tylenol (alternately spaced), as needed 2. Consider 125mg IV Solu-Medrol 1 time today 3. At this point, I am not certain she needs to continue antibiotic. 4. Continue decongestants for now 5. Consider 500 mg IV Depakote 1 time today. 6. Avoid Zyprexa (she is already on Abilify). 7. Depending on her clinical course/response to IV Solu-Medrol and IV Depakote today, could consider 0.5 mg to 1 mg subcutaneous DHE (dihydroergotamine) as needed for severe headache. Studies have shown that although this works sumatriptan subcu tends to work better. I am not certain what the patient's reaction was to sumatriptan but I doubt that she is allergic to it. Therefore, if the patient is willing, we could consider one-time 6 mg sumatriptan subcutaneous or 1 mg subcutaneous DHE, if headache becomes severe 8. Restart Ajovy monthly, as an outpatient. Overall, I spent a total of 50 minutes with this case including review of records, direct evaluation the patient at bedside, report generation, and discussion of the case with the patient and RN at bedside and Adrienne Harry PA-C, including differential diagnosis and treatment options. Admission and Anticipated Discharge Date Admission Date: November 27, 2023 Subjective The patient was doing very well after receiving the IV Depakote and IV Solu- Medrol yesterday. Unfortunately, it was not given till the afternoon after her MRI but later in the afternoon yesterday as well as the evening and overnight she did very well and her pain was down to 4 out of 10 (possibly 2 out of 10 overnight) This morning she was doing well until about 0700 when the intense bifrontal/bridge of her nose pressure returned. Coughing makes it worse. MRI of the brain was obtained and showed no abnormalities with and without contrast. I reviewed these films. Blood pressure is 117/76 and she is afebrile. CBC and CHEM profile yesterday were unremarkable. Results & Data Vital Signs (Past 12 Hours) Vital Signs Temp Pulse Resp BP Pulse Ox O2 Del Method 11/30/23 07:50 36.6 C 72 16 117/76 98 Room Air Exam (Neuro) Physical Exam: She is awake and alert. Speech is without aphasia or dysarthria. Mood and affect seems normal and appropriate. Thought processes are intact to conversation. The patient is light sensitive and coughing makes her frontal pressure pain worse. Extraocular eye muscles are intact without nystagmus and she had no facial droop. Limb strength and coordination seem reasonable bilaterally and sitting up in bed was normal. There were no abnormal involuntary movements. PG Care Time/CCT Total # of Minutes Spent Total Time Spent with Patient: Total time spent is greater than 50% in coordination of care (as documented) at patient's floor/unit and/or counseling patient: Coding Level of Care Code 44992 SUB INP/OBS CARE 3/50MIN Diagnoses Intractable headache R51.9 Migraine with aura G43.109 Acute sinusitis J01.90 Time Spent (min) 50
[2023-11-30] MEDS ORDERED: VALPROATE SOD 500 MG in DEXTROSE 5% 50 ML IV ONE (09:45)
[2023-11-30] MEDS ORDERED: methylPREDNISolone 125 MG in SYRINGE 0 ML IV ONE (13:00)
[2023-11-30] MEDS: IBUPROFEN 600 MG TAB PO SCH ×2 (14:11→21:06)
--- NOTE | 2023-11-30 14:14 | Hospitalist Progress Note ---
Date of Service November 30, 2023 Assessment & Plan (1) Intractable headache: Plan: 37-year-old female with past medical history significant for chronic maxillary sinusitis, nonallergic rhinitis, exercise-induced bronchospasm, GERD, irritable bowel syndrome, fibromyalgia, chronic non-intractable headaches, iron deficiency anemia, herpes simplex type I infection, attention deficit disorder without hyperactivity, anxiety state, anorexia nervosa, mild depression, history of pancreatitis comes with intractable headache since last 2 days. Intractable headache Acute Sinusitis History of migraines --CT head R maxillary sinusitis Received Dilaudid, Toradol, Decadron, Benadryl, Reglan, Depakote but not getting better in ED Discussed with Neurologist Dr. Summers - who feels less likely migraine as more a/c sinusitis will schedule APAP, discussed with nurse to also alternate toradol limit use of Dilaudid as much as possible, OXY IR added for improved relief will schedule pseudophed Discussed with ENT Dr. Krishna who reviewed images - recommends outpatient ENT follow up d/c IVF as pt is hydrating well with large water cup at bedside Taper off prednisone MRI: negative, minimal mucosal thickening of sinuses Pt will complete 7 days of antibiotic today, will d/c after this 11/29 IV depakote 500mg IV x 1; IV soludmedrol 250mg IV x 1, will also give Ativan for acute anxiety 11/30 Discussed with neuro - pt mimicking cluster migraine vs mixed intractable headache with migraine features, will give additional 500mg IV depakote and 125mg IV solumedrol, per neuro can consider DHE vs sumatriptan (pt states rxn to triptans) IBS On lubiprostone Depression Attention deficit disorder Continue home medications DVT prophylaxis SCDs for now Disposition Medical floor Full code Dispo: pt to remain admitted, not yet medically stable for d/c, likely ready in next 1-2 days Pt was seen and examined in collaboration with Dr. Reese, please see addendum A total of 49 minutes was spent coordinating, documenting, and providing care for this patient excluding time spent in the performance of separately billed services. This included personally viewing all current laboratories and50 imaging studies, medication reconciliation, outpatient chart review, and discussion with specialists. Admission and Anticipated Discharge Date Admission Date: November 27, 2023 Supervising Physician Co-Signing Physician Notes I have seen and discussed the case with the collaborating MIQUEL. I agree with the above H&P. I have reviewed and confirmed the patients medical history, the findings on physical examination, and the patients diagnosis and treatment plan with Piero LAFLEUR and agree with the information documented. In short, Ms. Mukherjee is a 37 year old woman with intractable headache. Evaluated patient this afternoon after does of solumedrol and depakote--notes quite a bit of improvement, but denies total resolution. Neurology following--appreciate continued recommendations. Plan as above I spent a total of 20minutes coordinating, documenting, and providing care for this patient excluding time spent in the performance of separately billed services. All of the aforementioned completed outside of collaborating with the assigned advanced practitioner for a full treatment plan. Subjective Patient was seen and examined in room 324. Follow-up acute sinusitis and intractable facial pain. Pt had a good afternoon/evening until this am. around 7a.m. when her pressure/pain in the frontal/forehead region struck again. Denies f/c/s, chest pain, sob, vision changes, tinnitus, n/v/d, abd pain. She has not yet moved her bowels and asking for additional regimen. Review of Systems Review of Systems: All systems reviewed & are unremarkable except as noted in HPI & below Physical Exam Physical Exam: Gen: WD/WN, NAD, appears in pain, anxious, A&O x3 HEENT: Normocephalic, atraumatic, conjunctivae moist, sclerae anicteric, mucous membranes moist. Lung: Clear to Auscultation bilaterally, no wheezes/rales/rhonchi Heart: Regular rate, regular rhythm, no murmurs, rubs, or gallops Abdomen: Soft, NT, ND +BS x 4 Extremities: No edema Skin: Warm, no rash, negative turgor. Results & Data Results & Data Vital Signs (Past 12 Hours) Vital Signs Temp Pulse Resp BP Pulse Ox O2 Del Method 11/30/23 07:50 36.6 C 72 16 117/76 98 Room Air Medications Administered Current Inpatient Medications Acyclovir (Acyclovir 400 Mg Tab) 400 mg PO BID [facility] Stop: 12/28/23 08:59 Last Admin: 11/30/23 09:20 Dose: 400 mg Albuterol (Albuterol Hfa 8 Gm Inhaler) 2 puffs INH Q4H PRN PRN Reason: cough,wheeze,SOB,prior exercis Stop: 12/28/23 01:40 Aripiprazole (Aripiprazole 1 Mg/Ml Oral Soln 150 Ml Btl) 2 mg PO QAM [facility] Stop: 12/28/23 08:59 Last Admin: 11/30/23 09:20 Dose: 2 mg Artificial Tears (Artificial Tears) 1 drops OPB QID PRN PRN Reason: Dryness Stop: 12/28/23 08:53 Ascorbic Acid (Ascorbic Acid 500 Mg Tab) 250 mg PO Q48H [facility] Stop: 12/28/23 08:59 Last Admin: 11/30/23 09:18 Dose: Not Given Azelastine HCl (Azelastine Hcl 0.1% Nasal 200 Sprays/27,400 Mcg Btl) 2 sprays NA BID [facility] Stop: 12/28/23 08:59 Last Admin: 11/30/23 08:58 Dose: 2 sprays Cefdinir (Cefdinir 300 Mg Cap) 300 mg PO BID [facility]; Protocol Stop: 12/08/23 10:44 Last Admin: 11/30/23 09:20 Dose: 300 mg Docusate Sodium (Docusate Sodium 100 Mg Cap) 100 mg PO BID [facility] Stop: 12/28/23 08:59 Last Admin: 11/30/23 09:19 Dose: 100 mg Escitalopram Oxalate (Escitalopram Oxalate 20 Mg Tab) 20 mg PO QAM [facility] Stop: 12/28/23 08:59 Last Admin: 11/30/23 09:20 Dose: 20 mg Famotidine (Famotidine 20 Mg Tab) 20 mg PO BID PRN PRN Reason: gerd/dyspepsia Stop: 12/30/23 08:59 Ferrous Sulfate (Ferrous Sulfate 325 Mg Tab) 325 mg PO Q48H [facility] Stop: 12/28/23 08:59 Last Admin: 11/30/23 09:18 Dose: Not Given Fluticasone Propionate (Fluticasone Propionate Na Spr 16 Gm Btl) 1 sprays NA BID [facility] Stop: 12/28/23 08:59 Last Admin: 11/30/23 08:59 Dose: 1 sprays Hydromorphone HCl (Hydromorphone Inj 0.5 Mg/0.5 Ml Syr) 0.5 mg IV Q4H PRN PRN Reason: Severe Pain (Scale 7, 8, 9,10) Stop: 12/12/23 01:40 Last Admin: 11/30/23 08:54 Dose: 0.5 mg Acetaminophen (Ofirmev) 1,000 mg in 100 mls @ 400 mls/hr IV Q8H [facility] Stop: 12/01/23 16:59 Last Infusion: 11/30/23 09:38 Dose: Infused Ibuprofen (Ibuprofen 600 Mg Tab) 600 mg PO Q8H [facility] Stop: 12/30/23 13:59 Last Admin: 11/30/23 14:11 Dose: 600 mg Lamotrigine (Lamotrigine 100 Mg Tab) 200 mg PO HS [facility]; Protocol Stop: 12/28/23 20:59 Last Admin: 11/29/23 20:21 Dose: 200 mg Lorazepam (Lorazepam 0.5 Mg Tab) 0.5 mg PO BID PRN PRN Reason: Anxiety Stop: 12/28/23 01:40 Last Admin: 11/29/23 10:22 Dose: 0.5 mg Lubiprostone (Lubiprostone 8 Mcg Cap) 24 mcg PO BIDM [facility] Stop: 12/28/23 07:59 Last Admin: 11/30/23 09:19 Dose: 24 mcg Magnesium Oxide (Magnesium Oxide 400 Mg Tab) 400 mg PO BID [facility] Stop: 12/28/23 08:59 Last Admin: 11/30/23 09:19 Dose: 400 mg Miscellaneous (Lifitegrast [Xiidra]: Order Awaiting Action) 1 each N/A QS [facility] Stop: 12/28/23 07:59 Last Admin: 11/30/23 07:09 Dose: Not Given Modafinil (Modafinil 100 Mg Tab) 300 mg PO QAM [facility] Stop: 12/28/23 08:59 Last Admin: 11/30/23 09:19 Dose: 300 mg Rimegepant [Nurtec Odt] 75 Mg - Patient 's Own Med 1 each EXT DAILY PRN PRN Reason: Migraine Headache Stop: 12/28/23 20:48 Last Admin: 11/29/23 07:55 Dose: 1 each Oxycodone HCl (Oxycodone Hcl Ir 5 Mg Tab (Immediate Release)) 5 mg PO Q6H PRN PRN Reason: Moderate Pain (Scale 4, 5, 6) Stop: 12/12/23 15:26 Last Admin: 11/30/23 06:45 Dose: 5 mg Pantoprazole Sodium (Pantoprazole 40 Mg Tab) 40 mg PO QAM [facility] Stop: 12/28/23 08:59 Last Admin: 11/30/23 09:20 Dose: 40 mg Polyethylene Glycol (Polyethylene (Miralax) 17 Gm Pack) 17 gm PO DAILY [facility] Stop: 12/28/23 17:59 Last Admin: 11/30/23 08:10 Dose: 17 gm Prednisone (Prednisone 10 Mg Tablet) 10 mg PO DAILY [facility]; Taper Stop: 12/01/23 08:59 Last Admin: 11/30/23 09:19 Dose: 10 mg Pseudoephedrine HCl (Pseudoephedrine Hcl 30 Mg Tab) 30 mg PO Q8H [facility] Stop: 12/28/23 10:34 Last Admin: 11/30/23 11:29 Dose: 30 mg Saccharomyces Boulardii (Saccharomyces Boulardii 250 Mg Cap) 250 mg PO DAILY [facility] Stop: 12/28/23 11:14 Last Admin: 11/30/23 09:19 Dose: 250 mg
[2023-11-30] MEDS ORDERED: ARTIFICIAL TEARS OP PRN (14:21)
[2023-11-30] MEDS ORDERED: DIHYDROERGOTAMINE MESYLATE 1 MG/ML VIAL SQ ONE (15:01)
[2023-11-30] MEDS: lamoTRIgine 100 MG TAB PO SCH (21:05)
[2023-12-01] MEDS: ACETAMINOPHEN 1,000 MG/100 ML VIAL IV SCH ×2 (01:13→09:17)
[2023-12-01] MEDS: POLYETHYLENE (MIRALAX) 17 GM PACK PO SCH ×3 (01:15→11:27)
[2023-12-01] MEDS: PSEUDOEPHEDRINE HCL 30 MG TAB PO SCH ×2 (01:15→10:01)
[2023-12-01] MEDS: IBUPROFEN 600 MG TAB PO SCH (06:12)
[2023-12-01] MEDS: oxyCODONE HCL IR 5 MG TAB (IMMEDIATE RELEASE) PO PRN (06:39)
[2023-12-01] MEDS ORDERED: DIHYDROERGOTAMINE MESYLATE 1 MG/ML VIAL SQ ONE (07:30)
[2023-12-01 07:32] LABS: Basophils # (auto) 0.05 K/uL (0.00-0.20); Basophils % (auto) 0.3 %; Eosinophils # (auto) 0.02 K/uL (0.00-0.50); Eosinophils % (auto) 0.1 %; Hematocrit (blood only) 44.5 % (37.0-47.0); Hemoglobin 14.5 g/dl (12.0-16.0); Immature Granulocytes # (auto) 0.21 K/uL (0.01-0.20); Immature Granulocytes % (auto) 1.2 %; Lymphocytes # (auto) 3.16 K/uL (1.20-3.40); Lymphocytes % (auto) 17.9 %; Mean Corpuscular Hemoglobin 29.5 pg (25.0-34.0); Mean Corpuscular Hgb Conc 32.6 g/dL (32.0-36.0); Mean Corpuscular Volume 90.6 fL (80.0-100.0); Mean Platelet Volume 9.6 fL (9.4-12.4); Monocytes # (auto) 1.24 K/uL (0.11-0.59); Neutrophils # (auto) 12.93 K/uL (1.40-6.50); Neutrophils % (auto) 73.5 %; Platelet Count 274 K/uL (130-400); RDW Coefficient of Variation 12.4 % (11.5-14.5); Red Blood Count 4.91 M/uL (4.20-5.40); White Blood Count 17.61 K/ul (4.8-10.8)
[2023-12-01] MEDS: LUBIPROSTONE 8 MCG CAP PO SCH (07:53)
[2023-12-01 08:11] LABS: Albumin Globulin Ratio 1.6 (0.9-2); Albumin Level 3.9 gm/dl (3.4-5.0); Bilirubin,Total 0.2 mg/dl (0.2-1.0); Calcium 9.3 mg/dl (8.6-10.3); Creatinine Clr Calc Pharmacy 114.5 ml/min; Est GFR (African American) 132.8 ml/min; Est GFR (Non-African American) 114.6 ml/min; Globulin 2.4 gm/dl (2.5-4.0); Potassium 4.1 mmol/L (3.5-5.1); Total Protein 6.3 gm/dl (6.0-8.3)
[2023-12-01] MEDS: ACYCLOVIR 400 MG TAB PO SCH (09:09)
[2023-12-01] MEDS: ARIPIprazole 1 MG/ML ORAL SOLN 150 ML BTL PO SCH (09:10)
[2023-12-01] MEDS: DOCUSATE SODIUM 100 MG CAP PO SCH (09:10)
[2023-12-01] MEDS: ESCITALOPRAM OXALATE 20 MG TAB PO SCH (09:11)
[2023-12-01] MEDS: AZELASTINE HCL 0.1% NASAL 200 SPRAYS/27,400 MCG BTL SCH (09:11)
[2023-12-01] MEDS: MAGNESIUM OXIDE 400 MG TAB PO SCH (09:12)
[2023-12-01] MEDS: FLUTICASONE PROPIONATE NA SPR 16 GM BTL SCH (09:12)
[2023-12-01] MEDS: SACCHAROMYCES BOULARDII 250 MG CAP PO SCH (09:12)
[2023-12-01] MEDS: PANTOprazole 40 MG TAB PO SCH (09:12)
[2023-12-01] MEDS: modafiniL 100 MG TAB PO SCH (09:16)
[2023-12-01] MEDS ORDERED: predniSONE 20 MG TAB PO STA (09:19)
--- NOTE | 2023-12-01 09:37 | Neurology Progress Note ---
Date of Service December 01, 2023 Assessment & Plan (1) Intractable headache: (2) Migraine with aura: (3) Acute sinusitis: Plan Patient has a history of intermittent migraine headaches with frequent nonmigraine's headaches and sinus infections. Over the last 3 days, she has had early childhood education specialist onset of severe pressure pain (without flushing, tearing from her eyes, or face pain). The pain is centered bifrontally and the bridge of her nose. She has some nausea and considerable phonophobia and photophobia. Each afternoon and evening she has significant relief and overnight she has been doing quite well the last several nights (only to get a severe headache first thing in the morning again the next day). Currently, her neurologic examination and mental status is otherwise unremarkable. MRI of the brain and LP have been unremarkable. Laboratory studies have been unremarkable as well. Whereas I was convinced that she had an acute sinusitis on admission, MRI of the brain November 29, showed no sinusitis (frontal sinusitis has cleared since the admission CAT scan), and I am more concerned that this is a mixed intractable headache with migrainous features, reminiscent of a cluster migraine variant. I had a very long talk with the patient, RNs at bedside, and Dr. Reese regarding her case and treatment options. Recommendations: 1. Initiate 12-day tapering oral prednisone course (60 mg a day for 2 days, 50 mg a day for 2 days, 40 mg a day for 2 days, 30 mg a day for 2 days, 20 mg a day for 2 days, 10 mg a day for 2 days, then discontinue). She can take this with food and, if needed, oral ondansetron 2. Initiate Ajovy monthly as soon as she is discharged from the hospital. 3. Increase (and change) lamotrigine to lamotrigine ER 250 mg once daily. Anticonvulsants can prevent headaches. I need to avoid long-term valproic acid as long as she could possibly become and topiramate gave her significant cognitive side effects. 4. The patient may continue to use oxycodone and lorazepam (sparingly) intermittently, as needed. 5. Increase activity as able 6. As an outpatient, we may consider initiating doxepin in the evening for headache prevention. I would discuss this with Dr. Fernandes because the patient is already on escitalopram and would avoid the risk of serotonin syndrome. 7. Additionally, headache prevention can be achieved with low doses of Zyprexa (but she is already on Abilify, and again, I would discuss this with her psychiatrist). 8. 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 Verapamil gave her significant constipation side effects. 9. If Ajovy does not help, I would consider Qulipta 60 mg daily to prevent headaches. 10. She has an appointment upcoming in neurology December 22. Overall, I spent a total of 90 minutes with this case including review of records, direct evaluation the patient at bedside, report generation, and discussion of the case with the patient, RN at bedside, Faviloa Foster, her outpatient PA, and Dr. Reese, including differential diagnosis and treatment options. Admission and Anticipated Discharge Date Admission Date: November 27, 2023 Subjective Patient was doing fairly well yesterday afternoon. She does not feel like she had quite as good a response yesterday with 125 mg Solu-Medrol that she had with 250 mg IV Solu-Medrol. She had a visit from her children around 6 PM which "stirred" her headache up again. She had an oxycodone and spent the rest of the evening and overnight at a 1 or 2 out of 10 with her pain. This morning somewhere between 6 and 7 AM she started getting a significant headache again. She admits that this morning's headache is not as severe as the last 2 mornings. She had subcutaneous DHE 1 mg which helped some by 1 hour She has minimal nausea but has photophobia and phonophobia. The headache is a pressure bifrontally and radiating a little to the left. Nursing reports no new or other issues. CBC and CHEM profile today were unremarkable. Results & Data Vital Signs (Past 12 Hours) Vital Signs Temp Pulse Resp BP BP Pulse Ox O2 Del Method 12/01/23 07:18 36.8 C 67 16 135/86 100 Room Air 11/30/23 22:14 36.6 C 76 18 104/65 95 Room Air Exam (Neuro) Physical Exam: Patient is sitting up in bed doing well with a significant headache. She has some photophobia but her speech is normal without aphasia or dysarthria. Mood is reasonable although she is sometimes tearful because of her head pain. Affect is appropriate. Thought processes and cognitive function are quite intact. Extraocular eye muscles are intact without nystagmus. There is no facial droop. Tongue is midline. Sitting up in bed is normal and limb strength is symmetrical and normal. She has no abnormal involuntary movements. PG Care Time/CCT Total # of Minutes Spent Total Time Spent with Patient: Total time spent is greater than 50% in coordination of care (as documented) at patient's floor/unit and/or counseling patient: Coding Level of Care Code 26058 SUB INP/OBS CARE 3/50MIN Diagnoses Intractable headache R51.9 Migraine with aura G43.109 Acute sinusitis J01.90 Time Spent (min) 90 Comment Add modifiers as able
[2023-12-01] MEDS: LORazepam 0.5 MG TAB PO PRN (09:58)
--- NOTE | 2023-12-01 11:19 | Discharge Summary ---
Discharge Summary Date of Service December 01, 2023 Notes For Next Care Provider Medication Changes From Visit Lamictal 200mg transitioned to Lamictal 250mg ER qhs Prednisone taper, 60mg x1 day, decreased by 10mg q2ays Oxycodone 5mg, 15 tabs prn Admission HPI Per Admitting Provider 37-year-old female with past medical history significant for chronic maxillary sinusitis, nonallergic rhinitis, exercise-induced bronchospasm, GERD, irritable bowel syndrome, fibromyalgia, chronic non-intractable headaches, iron deficiency anemia, herpes simplex type I infection, attention deficit disorder without hyperactivity, anxiety state, anorexia nervosa, mild depression, history of pancreatitis comes with intractable headache since last 2 days. Patient has history of migraines. She also recently having upper respiratory infection and on prednisone taper and doxycycline couple more days to complete the course. As headaches not getting better she came to the ER. She received IV Tylenol, Decadron, Benadryl, Toradol, magnesium, Reglan, but headache did not improve. She also complains of neck stiffness. The ER did the LP but it was unremarkable. Sinus CT showed right frontal sinusitis and CT head were unremarkable. But headache seen in both the maxillary region radiating to both the temporal region. Sounds not bothering her. But lights are bothering somewhat. As headache not getting better ER discussed with Neurology and was recommend to give another dose of Toradol and Depakote which are given and the patient symptoms did not improve so we are called for admission. Hemodynamics are okay. Denies any blurred vision. No sore throat. No cough. No fevers. No chest pain. No shortness of breath. Currently no nausea or vomiting. Appetite is okay. No abdominal pain. Normal bowel and bladder movements. Past medical history. As mentioned above Past surgical history. Dental surgery. EGD with endoscopic ultrasound. Laparoscopic lysis of additions. Laparoscopic cholecystectomy. Maxillary sinus endoscopy. Nasal endoscopy. Nasal surgery. Reduction of breast. Repair of nasal septum. Stereotactic cranial extradural navigation. Social history. . No smoking. No alcohol. No drug use. Family history. Father has clotting disorder. Mother has MS. Brother has allergies. Admission Exam Per Admitting Provider General- Not in acute distress Head- atraumatic Eyes- PERRL. ENT- oropharynx clear Neck- supple, no JVD. Lungs- clear to auscultation no wheezing or crackles. Heart- regular rhythm; no murmur, no gallop. Abdomen- normal bowel sounds, soft, nontender, no distension. Extremities- no pretibial edema, no erythema seen. Neuro- alert, oriented x 3; PERRL, no facial palsy; no dysarthria; moves extremities Principal Dx & Hospital Course #1 = Principal Diagnosis (1) Intractable headache: Ms. Mukherjee is a 37-year-old female with past medical history significant for chronic maxillary sinusitis, nonallergic rhinitis, exercise-induced bronchospasm, GERD, irritable bowel syndrome, fibromyalgia, chronic non- intractable headaches, iron deficiency anemia, herpes simplex type I infection, attention deficit disorder without hyperactivity, anxiety state, anorexia nervosa, mild depression, history of pancreatitis admitted 11/27 for intractable headache since last 2 days. Neurology evaluated patient, initially symptoms thought to be secondary to sinusitis, however, concern for variant cluster migraine developed. Patient's symptoms most notable in morning after awakening. #Intractable headache, c/f variant cluster migraine #Acute on chronic Sinusitis History of migraines --CT head R maxillary sinusitis Received Dilaudid, Toradol, Decadron, Benadryl, Reglan, Depakote but not getting better in ED Discussed with Neurologist Dr. Summers - who feels less likely migraine as more a/c sinusitis limit use of Dilaudid as much as possible, OXY IR added for improved relief Scheduled pseudophed with resoltuon of effusion on imaginge -Follow up ENT OP, Dr Krishna MRI: negative, minimal mucosal thickening of sinuses Started on cephalosporin given concern for sinustis initially, however, as ongoing exam revealed morning symptomology, less suspicious for infection: discontinued abx -11/29 IV depakote 500mg IV x 1; IV soludmedrol 250mg IV x 1, will also give Ativan for acute anxiety -11/30 Discussed with neuro - pt mimicking cluster migraine vs mixed intractable headache with migraine features, will give additional 500mg IV depakote and 125mg IV solumedrol, per neuro can consider DHE vs sumatriptan (pt states rxn to triptans) -some improvement with 0.5 sq DHE -12/01 s/p 1mg DHE sq Patient apprheensive for various medications like verapamil, additionally multiple other adjuncts may interact with current medications and would require discussion with op psych -Switch to Lamictal 25mg ER qhs -Discharge with prednisone taper, 60mg tomorrow, then decrease by 10mg q2d -Follow up neuro, start Ajovy when able IBS On lubiprostone Depression Attention deficit disorder Continue home medications DVT prophylaxis SCDs for now Disposition Medical floor Full code On day of discharge, patient reports marginal improvement in symptoms, but understands need for OP follow up . Patient denies any weakness, focal neurologic deficits, or other acute concerns. Patient verbalized understanding for OP follow up and plan. Discharge Exam Constitutional WD/WN, vitals as above appears more comfortable today, sitting in bed, lights on Respiratory normal respiratory effort, lungs clear to auscultation Cardiovascular RRR, no murmur, no edema Musculoskeletal no cyanosis or clubbing, extremities motor strength 5/5 Updated Medication List Medication Instructions Recorded Confirmed Type acyclovir 400 mg tablet 400 mg PO [facility] 03/11/19 11/27/23 History magnesium oxide 400 mg (241.3 mg 400 mg PO BID 06/22/22 11/27/23 History magnesium) tablet lorazepam 0.5 mg tablet (Ativan) 0.5 mg PO BID PRN Anxiety 08/30/22 11/27/23 History modafinil 200 mg tablet 300 mg PO QAM 03/04/23 11/27/23 History fluticasone propionate 93 1 spray intranasal BID #16 mL 04/22/23 11/27/23 Rx mcg/actuation breath activated aerosol (Xhance) escitalopram oxalate 20 mg tablet 20 mg PO QAM 05/31/23 11/27/23 History rimegepant 75 mg disintegrating 75 mg PO ONCE PRN migraine 07/26/23 11/27/23 Rx tablet (Nurtec ODT) headache #8 tabs albuterol sulfate 90 mcg/actuation 2 puff inhalation Q4H PRN 09/05/23 11/27/23 History aerosol inhaler cough,wheeze,SOB,prior exercise docusate sodium 100 mg capsule 100 mg PO BID 09/05/23 11/27/23 History (Colace) Budesonide 0.6mg/Ml Conc See Rx Instructions .Route .COMPLEX 11/27/23 11/27/23 History aripiprazole 2 mg tablet 2 mg PO QAM 11/27/23 11/27/23 History azelastine 137 mcg (0.1 %) nasal 2 spray intranasal [facility] 11/27/23 11/27/23 History spray aerosol iron,carbonyl 65 mg-vitamin C 125 1 tab PO Q OTHER DAY 11/27/23 11/27/23 History mg tablet,delayed release (Vitron-C) lifitegrast 5 % eye drops in a 1 drp OPB BID 11/27/23 11/27/23 History dropperette (Xiidra) lubiprostone 24 mcg capsule 24 mcg PO BIDM 11/27/23 11/27/23 History omeprazole 20 mg capsule,delayed 20 mg PO QAM 11/27/23 11/27/23 History release riboflavin (vitamin B2) 400 mg 400 mg PO QAM 11/27/23 11/27/23 History tablet ferrous sulfate 325 mg (65 mg 325 mg PO Q48H #30 tabs 12/01/23 Rx iron) tablet,delayed release fremanezumab-vfrm 225 mg/1.5 mL 225 mg (1.5 mL) subcut MONTHLY 12/01/23 Rx subcutaneous auto-injector (Ajovy) #1.5 mL lamotrigine 250 mg tablet,extended 250 mg PO .qhs #30 tabs 12/01/23 Rx release 24 hr (Lamictal XR) oxycodone 5 mg tablet 5 mg PO Q6H PRN pain #15 tabs 12/01/23 Rx prednisone 10 mg tablet 10 mg PO DIRECTED #36 tabs 12/01/23 Rx Hospital Stay Data Consultations 11/27/23 22:22 ED Decision to Admit Stat 11/28/23 08:00 Consult Neurology Routine Diagnostic Imagining Performed 11/27/23 15:19 CT head/brain wo con Stat CT sinus w con Stat 11/29/23 10:23 MR brain wo/w con Routine Pending Results Patient Have Any Pending Studies at Discharge: No Discharge Instructions Given to Patient (Per Discharging Provider) You were admitted for intractable headache. It was initially suspected to be related to ongoing sinus issues, however, day by day evaluation by Neurology revealed suspicion for cluster migraines. Here are the following changes and recommendations: 1. Initiate 12-day tapering oral prednisone course. You recieved 60mg in hospital prior to discharge as Day 1. Therefore, start 60 mg a day for 1 days, 50 mg a day for 2 days, 40 mg a day for 2 days, 30 mg a day for 2 days, 20 mg a day for 2 days, 10 mg a day for 2 days, then discontinue. You can take this with food and, if needed, oral ondansetron 2. Initiate Ajovy monthly as soon as you are able. 3. Increase (and change) lamotrigine to lamotrigine ER 250 mg once daily, you can start this ER formulation this evening upon discharge. Anticonvulsants can prevent headaches. 4. You may continue to use oxycodone and lorazepam (sparingly) intermittently, as needed. 5. Increase activity as able 6. Please discontinue all antibiotics unless otherwise directed by ENT You have an appointment upcoming in neurology December 22. Total Time Total Time Spent Total Time Spent (In Minutes): 45
[2023-12-01] MEDS ORDERED: ONDANSETRON 4 MG OD TAB PO STA (11:40)
[2023-12-01] MEDS ORDERED: oxyCODONE/ACETAMINOPHEN 5mg/325mg TAB PO STA (11:40)
== END 2023-12-01 12:37 | disposition home or self-care (01) | DRG 103 ==
LOC: ED 13:14 → 3E 23:46